=== PATIENT | female | born 1960 | race Caucasian/White ===

== ENCOUNTER 2019-12-10 11:44 | Outpatient (CLI) | payer OTHER, SELFPAY ==
--- NOTE | 2019-12-10 11:49 | USCV_ITS ---
Lilo Chong Age: 59 Gender: F : 1960 Exam Date: 12/10/2019 12:09 Ordering Phys: Art Roman DO Technologist: Brittnee Cristina Exam Location: [facility] [place] Indication: HEART MURMUR, DM BP: 110 / 70 HR: 64 Rhythm: Sinus Technical Quality: Adequate MEASUREMENTS (Male / Female) Normal Values 2D ECHO LV Diastolic Diameter PLAX 4.4 cm 4.2 - 5.9 / 3.9 - 5.3 cm LV Systolic Diameter PLAX 2.6 cm LV Chamber Size 3.7 cm IVS Diastolic Thickness 0.9 cm 0.6 - 1.0 / 0.6 - 0.9 cm IVS Systolic Thickness 1.8 cm LVPW Diastolic Thickness 1.2 cm 0.6 - 1.0 / 0.6 - 0.9 cm LVPW Systolic Thickness 1.6 cm RV Chamber Size 2.7 cm LVOT Diameter 2.0 cm LV Ejection Fraction 2D Teich 72.6 % LV Ejection Fraction MOD 2C 48.2 % LV Ejection Fraction 2C AL 46.8 % LA Diameter 3.9 cm LA Width 2.1 cm LA Height 4.0 cm RA Width 2.2 cm RA Height 3.7 cm Aorta at Sinotubular Diameter 2.8 cm M-MODE LV Diastolic Diameter MM 3.8 cm 4.2 - 5.9 / 3.9 - 5.3 cm LV Systolic Diameter MM 2.9 cm LV Ejection Fraction MM Teich 48.9 % IVS Diastolic Thickness MM 1.0 cm 0.6 - 1.0 / 0.6 - 0.9 cm IVS Systolic Thickness MM 1.4 cm LVPW Diastolic Thickness MM 1.3 cm 0.6 - 1.0 / 0.6 - 0.9 cm LVPW Systolic Thickness MM 1.6 cm RV Diastolic Diameter MM 1.6 cm Aortic Annulus Diameter 3.1 cm LA Ao Ratio MM 1.3 MV E Point Septal Separation 0.2 cm DOPPLER AV Peak Velocity 137.0 cm/s LVOT Peak Velocity 100.0 cm/s AV Area Cont Eq vti 2.3 cm squared AV Area Cont Eq pk 2.3 cm squared MV Area PHT 4.1 cm squared Mitral E to A Ratio 1.1 MV E' Velocity 9.0 cm/s Mitral E to MV E' Ratio 12.2 Mitral E to LV E' Lateral Ratio 12.7 Mitral E to LV E' Septal Ratio 11.9 TR Peak Velocity 274.6 cm/s TR Peak Gradient 30.2 mmHg TR Mean Velocity 210.0 cm/s TR Mean Gradient 20.1 mmHg TR Velocity Time Integral 91.9 cm TV Peak E Velocity 67.0 cm/s Right Atrial Pressure 3.0 mmHg Pulmonary Artery Systolic Pressu 33.2 mmHg PV Peak Velocity 69.0 cm/s FINDINGS Left Ventricle Normal left ventricular cavity size. Normal left ventricular systolic function. No regional wall motion abnormalities. Left ventricular ejection fraction is estimated at 55 %. Grade I/IV diastolic dysfunction (abnormal relaxation filling pattern), normal to mildly elevated filling pressures. Right Ventricle The right ventricle is normal in size and function. Right Atrium The right atrium is normal in size. Left Atrium The left atrium is normal in size. Mitral Valve Moderately thickened mitral valve. No mitral valve stenosis. Mild mitral valve regurgitation. Aortic Valve Moderate aortic valve calcification. No aortic valve stenosis. Mild aortic valve regurgitation. Tricuspid Valve Structurally normal tricuspid valve without significant stenosis or regurgitation. Pulmonary artery systolic pressure is normal. Pulmonic Valve Structurally normal pulmonic valve without significant stenosis. There is no pulmonic regurgitation. Pericardium Normal pericardium without effusion. Aorta Normal ascending aorta dimension. CONCLUSIONS 1-Normal left ventricular cavity size. Normal left ventricular systolic function. No regional wall motion abnormalities. Left ventricular ejection fraction is estimated at 55 %. Grade I/IV diastolic dysfunction (abnormal relaxation filling pattern), normal to mildly elevated filling pressures. 2-Moderately thickened mitral valve. No mitral valve stenosis. Mild mitral valve regurgitation. 3-Moderate aortic valve calcification. No aortic valve stenosis. Mild aortic valve regurgitation. 4-There is no pericardial effusion. 4-Pulmonary artery systolic pressure is within normal limits. 5-Right atrial pressure is around 5 mm of mercury. 6-No significant change since the prior echocardiogram study of 04/09/2017. . Shree Kingston MD (Electronically Signed) Final Date: 10 Dec 2019 18:13 S
== END 2019-12-10 11:45 | disposition home or self-care (01) ==
LOC: RAD 11:48
PROVIDERS: PCP Electrodiagnostic Medicine; Visit Provider Electrodiagnostic Medicine
DX: R01.1 Cardiac murmur, unspecified (principal); E03.9 Hypothyroidism, unspecified; E11.9 Type 2 diabetes mellitus without complications; I08.0 Rheumatic disorders of both mitral and aortic valves
CPT/HCPCS: 93306

== ENCOUNTER 2020-01-15 07:30 | Outpatient (CLI) | payer OTHER, SELFPAY ==
--- NOTE | 2020-01-15 07:39 | MM_ITS ---
WS: [id number] BILATERAL DIGITAL SCREENING MAMMOGRAPHY WITH CAD CLINICAL INFORMATION: SCREENING HISTORY: Screening mammogram. No current complaints. COMPARISON: TECHNIQUE: Bilateral CC and MLO views. FINDINGS: The breasts are composed of heterogeneous fibroglandular density tissue, which can limit the detectio n of small underlying mass lesions. No suspicious mass, asymmetry, calcifications, or architectural d istortion. No evidence of malignancy. A few stable punctate calcifications. Stable lymph node left ax illary tail. MM/[id number] IMPRESSION: BI-RADS: 2-Benign FOLLOW UP: 1 Year Follow-up Recommend return to annual screening mammography.
== END 2020-01-15 07:31 | disposition home or self-care (01) ==
LOC: RADSHAW 07:35
PROVIDERS: PCP Electrodiagnostic Medicine; Visit Provider Electrodiagnostic Medicine
DX: Z12.31 Encounter for screening mammogram for malignant neoplasm of breast (principal)
CPT/HCPCS: 77067

== ENCOUNTER 2020-04-01 18:54 | Emergency (ER) | payer OTHER, SELFPAY ==
[2020-04-01 19:04] VITALS: BP 163/84; PULSE 73; RESP 17; TEMP 36.6; O2SAT 97; BMI 31.8
--- NOTE | 2020-04-01 19:23 | ED_ITS ---
HPI - Overdose General: Chief Complaint: Overdose Stated Complaint: POSSIBLE OVER DOSE/INSULIN Time Seen by Provider: 04/01/20 19:14 Source: patient Mode of arrival: ambulatory Limitations: no limitations History of Present Illness: HPI Narrative: Lilo presents here after accidentally taking 60 units of Humalog 30 minutes ago. She states she meant to take 15 but took 60. Patient's blood sugar at home was 217. She is concerned that it may drop in 1 to be monitored. She has no symptoms currently. Review of Systems Const: Denies: fever(s), chills, body aches or change in appetite Eyes: Denies: blurry vision or eye discomfort ENMT: Denies: throat pain or dental pain Card: Denies: chest pain Resp: Denies: dyspnea GI: Denies: abdominal pain, nausea, vomiting or diarrhea : Denies: dysuria Musc: Denies: neck pain or back pain Skin/Breast: Denies: rash Neuro: Denies: headache(s) Psych: Denies: depression Jordan/Lymph: Denies: easy bruising All/Imm: Denies: urticaria Physical Exam Const: COMMON NORMALS: no acute distress, patient oriented x3 and healthy appearing HENMT: COMMON NORMALS: normocephalic and atraumatic HEAD & SCALP: normocephalic and atraumatic Eye: COMMON NORMALS: Equal, round and reactive pupils present and EOMs intact bilaterally PUPIL: Yes Equal, round and reactive pupils present Neck/C-Spine: COMMON NORMALS: full ROM and supple Chest: COMMONS NORMALS: normal inspection of the chest and normal palpation of entire chest wall Resp: COMMON NORMALS: normal respiratory effort, No retractions, No use of accessory muscles and clear to auscultation bilaterally AUSCULTATION: clear to auscultation bilaterally Cardio: COMMON NORMALS: regular rate, regular rhythm and No murmurs present (Cardio) RATE: regular rate RHYTHM: regular rhythm GI: COMMON NORMALS: Normal to inspection, nondistended, normoactive bowel sounds present, Soft to palpation, non-tender and no masses PALPATION: Yes Soft to palpation Extremity: COMMON NORMALS: normal to inspection and full ROM Neuro: COMMON NORMALS: patient oriented x3, moves all extremities and no focal motor deficits Psych: COMMON NORMALS: mental status grossly normal, Normal thought process present and cooperative THOUGHT PROCESS: Normal thought process present Skin: COMMON NORMALS: no rashes or lesions noted and no wounds GENERAL SKIN EXAM: no rashes or lesions noted Course Vital Signs: Vital signs: Vital Signs Temperature 97.8 F 04/01/20 19:04 Pulse Rate 73 04/01/20 19:04 Respiratory Rate 16 04/01/20 23:17 Blood Pressure 119/66 04/01/20 23:17 Pulse Oximetry 97 04/01/20 23:17 MDM - Overdose MDM Narrative: Medical decision making narrative: Lilo presents here with accidental overdose on her insulin. She took the longest on accident. Patient's blood sugar here is stabilized. She is well-appearing here and is stable for discharge. She is to follow-up with PCP in 3 to 5 days return if worsening. Lab Data: Labs: Lab Results 04/01/20 04/01/20 04/01/20 Range/Units 19:12 19:20 19:20 WBC 9.0 (4.0-10.0) 10^3/ uL RBC 4.77 (4.1-5.3) 10^6/u L Hgb 12.8 (11.5-15.3) g/dL Hct 40.0 (37.0-47.0) % MCV 83.9 (81-99) fL MCH 26.8 L (28.0-34.0) pg MCHC 32.0 (30.0-36.0) g/dL RDW 13.0 (12.1-15.1) % Plt Count 327 (130-400) 10^3/c mm MPV 10.0 (7.4-10.4) fL Neut % (Auto) 53.6 % Lymph % (Auto) 34.9 % [place] % (Auto) 5.1 % Eos % (Auto) 5.8 % Baso % (Auto) 0.3 % Neut # (Auto) 4.81 (1.8-7.7) 10^3/u L Lymph # (Auto) 3.1 (0.8-4.8) 10^3/u L [place] # (Auto) 0.5 (0.2-0.9) 10^3/u L Eos # (Auto) 0.5 (0.0-0.8) 10^3/u L Baso # (Auto) 0.0 (0.0-0.1) 10^3/u L Nucleated RBC % (a uto) 0 % Nucleated RBCs # 0.0 /100WBC Sodium 139 (136-145) mmol/L Potassium 3.6 (3.5-5.1) mmol/L Chloride 101 (98-107) mmol/L Carbon Dioxide 28 (22-29) mmol/L Anion Gap 13.6 (5-19) BUN 14 (6-20) mg/dL Creatinine 0.8 (0.5-0.9) mg/dL GFR Calculation 73.4 L (90-130) mL/min Glucose 92 (65-115) mg/dL POC Glucose 166 (70-110) mg/dL Calculated Osmolal ity 284 L (285-295) mOsm/k g Calcium 9.1 (8.5-10.5) mg/dL Total Bilirubin 0.3 (0.15-1.2) mg/dL AST 20 (0-32) U/L ALT 17 (0-33) U/L Alkaline Phosphata se 120 H (35-105) IU/L Total Protein 7.7 (6.6-8.7) g/dL Albumin 4.5 (3.5-5.2) g/dL Globulin 3.2 (1.3-4.6) g/dL Salicylates 1.1 L (3-10) mg/dL Urine Opiates Scre en (Negative) ng/mL Acetaminophen < 5.0 L (10-30) ug/mL Ur Barbiturates Sc reen (Negative) ng/mL Ur Phencyclidine S crn (Negative) ng/mL Ur Amphetamines Sc reen (Negative) ng/mL U Benzodiazepines Scrn (Negative) ng/mL Urine Cocaine Scre en (Negative) ng/mL U Marijuana (THC) Screen (Negative) ng/mL Ethyl Alcohol < 10 (0-10) mg/dL 04/01/20 04/01/20 04/01/20 Range/Units 19:38 19:39 20:04 WBC (4.0-10.0) 10^3/ uL RBC (4.1-5.3) 10^6/u L Hgb (11.5-15.3) g/dL Hct (37.0-47.0) % MCV (81-99) fL MCH (28.0-34.0) pg MCHC (30.0-36.0) g/dL RDW (12.1-15.1) % Plt Count (130-400) 10^3/c mm MPV (7.4-10.4) fL Neut % (Auto) % Lymph % (Auto) % [place] % (Auto) % Eos % (Auto) % Baso % (Auto) % Neut # (Auto) (1.8-7.7) 10^3/u L Lymph # (Auto) (0.8-4.8) 10^3/u L [place] # (Auto) (0.2-0.9) 10^3/u L Eos # (Auto) (0.0-0.8) 10^3/u L Baso # (Auto) (0.0-0.1) 10^3/u L Nucleated RBC % (a uto) % Nucleated RBCs # /100WBC Sodium (136-145) mmol/L Potassium (3.5-5.1) mmol/L Chloride (98-107) mmol/L Carbon Dioxide (22-29) mmol/L Anion Gap (5-19) BUN (6-20) mg/dL Creatinine (0.5-0.9) mg/dL GFR Calculation (90-130) mL/min Glucose (65-115) mg/dL POC Glucose 100 161 (70-110) mg/dL Calculated Osmolal ity (285-295) mOsm/k g Calcium (8.5-10.5) mg/dL Total Bilirubin (0.15-1.2) mg/dL AST (0-32) U/L ALT (0-33) U/L Alkaline Phosphata se (35-105) IU/L Total Protein (6.6-8.7) g/dL Albumin (3.5-5.2) g/dL Globulin (1.3-4.6) g/dL Salicylates (3-10) mg/dL Urine Opiates Scre en Negative (Negative) ng/mL Acetaminophen (10-30) ug/mL Ur Barbiturates Sc reen Negative (Negative) ng/mL Ur Phencyclidine S crn Negative (Negative) ng/mL Ur Amphetamines Sc reen Negative (Negative) ng/mL U Benzodiazepines Scrn Negative (Negative) ng/mL Urine Cocaine Scre en Negative (Negative) ng/mL U Marijuana (THC) Screen Negative (Negative) ng/mL Ethyl Alcohol (0-10) mg/dL 04/01/20 04/01/20 04/01/20 Range/Units 20:23 21:10 22:01 WBC (4.0-10.0) 10^3/ uL RBC (4.1-5.3) 10^6/u L Hgb (11.5-15.3) g/dL Hct (37.0-47.0) % MCV (81-99) fL MCH (28.0-34.0) pg MCHC (30.0-36.0) g/dL RDW (12.1-15.1) % Plt Count (130-400) 10^3/c mm MPV (7.4-10.4) fL Neut % (Auto) % Lymph % (Auto) % [place] % (Auto) % Eos % (Auto) % Baso % (Auto) % Neut # (Auto) (1.8-7.7) 10^3/u L Lymph # (Auto) (0.8-4.8) 10^3/u L [place] # (Auto) (0.2-0.9) 10^3/u L Eos # (Auto) (0.0-0.8) 10^3/u L Baso # (Auto) (0.0-0.1) 10^3/u L Nucleated RBC % (a uto) % Nucleated RBCs # /100WBC Sodium (136-145) mmol/L Potassium (3.5-5.1) mmol/L Chloride (98-107) mmol/L Carbon Dioxide (22-29) mmol/L Anion Gap (5-19) BUN (6-20) mg/dL Creatinine (0.5-0.9) mg/dL GFR Calculation (90-130) mL/min Glucose (65-115) mg/dL POC Glucose 92 149 48 (70-110) mg/dL Calculated Osmolal ity (285-295) mOsm/k g Calcium (8.5-10.5) mg/dL Total Bilirubin (0.15-1.2) mg/dL AST (0-32) U/L ALT (0-33) U/L Alkaline Phosphata se (35-105) IU/L Total Protein (6.6-8.7) g/dL Albumin (3.5-5.2) g/dL Globulin (1.3-4.6) g/dL Salicylates (3-10) mg/dL Urine Opiates Scre en (Negative) ng/mL Acetaminophen (10-30) ug/mL Ur Barbiturates Sc reen (Negative) ng/mL Ur Phencyclidine S crn (Negative) ng/mL Ur Amphetamines Sc reen (Negative) ng/mL U Benzodiazepines Scrn (Negative) ng/mL Urine Cocaine Scre en (Negative) ng/mL U Marijuana (THC) Screen (Negative) ng/mL Ethyl Alcohol (0-10) mg/dL 04/01/20 04/01/20 04/01/20 Range/Units 22:33 23:14 23:52 WBC (4.0-10.0) 10^3/ uL RBC (4.1-5.3) 10^6/u L Hgb (11.5-15.3) g/dL Hct (37.0-47.0) % MCV (81-99) fL MCH (28.0-34.0) pg MCHC (30.0-36.0) g/dL RDW (12.1-15.1) % Plt Count (130-400) 10^3/c mm MPV (7.4-10.4) fL Neut % (Auto) % Lymph % (Auto) % [place] % (Auto) % Eos % (Auto) % Baso % (Auto) % Neut # (Auto) (1.8-7.7) 10^3/u L Lymph # (Auto) (0.8-4.8) 10^3/u L [place] # (Auto) (0.2-0.9) 10^3/u L Eos # (Auto) (0.0-0.8) 10^3/u L Baso # (Auto) (0.0-0.1) 10^3/u L Nucleated RBC % (a uto) % Nucleated RBCs # /100WBC Sodium (136-145) mmol/L Potassium (3.5-5.1) mmol/L Chloride (98-107) mmol/L Carbon Dioxide (22-29) mmol/L Anion Gap (5-19) BUN (6-20) mg/dL Creatinine (0.5-0.9) mg/dL GFR Calculation (90-130) mL/min Glucose (65-115) mg/dL POC Glucose 229 106 73 (70-110) mg/dL Calculated Osmolal ity (285-295) mOsm/k g Calcium (8.5-10.5) mg/dL Total Bilirubin (0.15-1.2) mg/dL AST (0-32) U/L ALT (0-33) U/L Alkaline Phosphata se (35-105) IU/L Total Protein (6.6-8.7) g/dL Albumin (3.5-5.2) g/dL Globulin (1.3-4.6) g/dL Salicylates (3-10) mg/dL Urine Opiates Scre en (Negative) ng/mL Acetaminophen (10-30) ug/mL Ur Barbiturates Sc reen (Negative) ng/mL Ur Phencyclidine S crn (Negative) ng/mL Ur Amphetamines Sc reen (Negative) ng/mL U Benzodiazepines Scrn (Negative) ng/mL Urine Cocaine Scre en (Negative) ng/mL U Marijuana (THC) Screen (Negative) ng/mL Ethyl Alcohol (0-10) mg/dL 04/02/20 04/02/20 Range/Units 00:30 01:34 WBC (4.0-10.0) 10^3/ uL RBC (4.1-5.3) 10^6/u L Hgb (11.5-15.3) g/dL Hct (37.0-47.0) % MCV (81-99) fL MCH (28.0-34.0) pg MCHC (30.0-36.0) g/dL RDW (12.1-15.1) % Plt Count (130-400) 10^3/c mm MPV (7.4-10.4) fL Neut % (Auto) % Lymph % (Auto) % [place] % (Auto) % Eos % (Auto) % Baso % (Auto) % Neut # (Auto) (1.8-7.7) 10^3/u L Lymph # (Auto) (0.8-4.8) 10^3/u L [place] # (Auto) (0.2-0.9) 10^3/u L Eos # (Auto) (0.0-0.8) 10^3/u L Baso # (Auto) (0.0-0.1) 10^3/u L Nucleated RBC % (a uto) % Nucleated RBCs # /100WBC Sodium (136-145) mmol/L Potassium (3.5-5.1) mmol/L Chloride (98-107) mmol/L Carbon Dioxide (22-29) mmol/L Anion Gap (5-19) BUN (6-20) mg/dL Creatinine (0.5-0.9) mg/dL GFR Calculation (90-130) mL/min Glucose (65-115) mg/dL POC Glucose 69 174 (70-110) mg/dL Calculated Osmolal ity (285-295) mOsm/k g Calcium (8.5-10.5) mg/dL Total Bilirubin (0.15-1.2) mg/dL AST (0-32) U/L ALT (0-33) U/L Alkaline Phosphata se (35-105) IU/L Total Protein (6.6-8.7) g/dL Albumin (3.5-5.2) g/dL Globulin (1.3-4.6) g/dL Salicylates (3-10) mg/dL Urine Opiates Scre en (Negative) ng/mL Acetaminophen (10-30) ug/mL Ur Barbiturates Sc reen (Negative) ng/mL Ur Phencyclidine S crn (Negative) ng/mL Ur Amphetamines Sc reen (Negative) ng/mL U Benzodiazepines Scrn (Negative) ng/mL Urine Cocaine Scre en (Negative) ng/mL U Marijuana (THC) Screen (Negative) ng/mL Ethyl Alcohol (0-10) mg/dL Discharge Plan Discharge Patient Disposition: Home Clinical Impression: Accidental overdose Qualifiers: Encounter type: initial encounter Qualified Code(s): T50.901A - Poisoning by unspecified drugs, medicaments and biological substances, accidental (unintentional), initial encounter Condition: Stable Prescriptions: No Action atorvastatin 40 mg tablet 40 mg PO DAILY RF: 0 Euthyrox 125 mcg tablet 125 mcg PO DAILY RF: 0 estradiol 0.5 mg tablet 0.5 mg PO DAILY RF: 0 dicyclomine 10 mg capsule See Rx Instructions .ROUTE .COMPLEX RF: 0 Humalog KwikPen Insulin 100 unit/mL insulin pen 10 unit SUBCUT TID RF: 0 escitalopram oxalate 10 mg tablet 10 mg PO DAILY RF: 0 duloxetine 30 mg capsule,delayed release(DR/EC) 30 mg PO DAILY RF: 0 Basaglar KwikPen U-100 Insulin 100 unit/mL (3 mL) insulin pen 60 unit SUBCUT QAM RF: 0 Tradjenta 5 mg tablet 5 mg PO DAILY RF: 0 Aspirin Low Dose 81 mg Tablet,Delayed Release (Dr/Ec) 81 mg PO DAILY RF: 0 Discharge Orders: Discharge Order (Routine); Ordered 04/02/20 Ordered By: Rema Bennett Referrals: Art Roman DO [Primary Care Provider] - 1-3 days Discharge Diet: Advance as tolerated Discharge Activity: Resume usual activity Patient Instructions: Diabetic Hypoglycemia (ED) Coding Level of Care Code ED Business Insight And Analytics Manager for Chg Fwd Exam Comprehensive
[2020-04-01 19:29] LABS: Basophils % 0.3 %; Eosinophils # 0.5 10^3/uL (0.0-0.8); Eosinophils % 5.8 %; Hemoglobin 12.8 g/dL (11.5-15.3); Lymphocytes # 3.1 10^3/uL (0.8-4.8); Lymphocytes % 34.9 %; Mean Corpuscular Hemoglobin 26.8 pg (28.0-34.0); Mean Corpuscular Volume 83.9 fL (81-99); Monocytes # 0.5 10^3/uL (0.2-0.9); Monocytes % 5.1 %; Neutrophils # 4.81 10^3/uL (1.8-7.7); Neutrophils % 53.6 %; Nucleated Red Blood Cells % 0 %; Platelet Count 327 10^3/cmm (130-400); Red Blood Count 4.77 10^6/uL (4.1-5.3)
[2020-04-01] MEDS: dextrose 50% syringe 50 mL IVP ×3 (19:46→22:20)
[2020-04-01 19:48] LABS: Alanine Aminotransferase 17 U/L (0-33); Albumin Level 4.5 g/dL (3.5-5.2); Alkaline Phosphatase 120 IU/L (35-105); Anion Gap 13.6 (5-19); Aspartate Amino Transferase 20 U/L (0-32); Blood Urea Nitrogen 14 mg/dL (6-20); Calcium 9.1 mg/dL (8.5-10.5); Carbon Dioxide 28 mmol/L (22-29); Chloride 101 mmol/L (98-107); Globulin 3.2 g/dL (1.3-4.6); Glomerular Filtration Rate 73.4 mL/min (90-130); Glucose 92 mg/dL (65-115); Osmolality Calculated 284 mOsm/kg (285-295); Potassium 3.6 mmol/L (3.5-5.1); Salicylate 1.1 mg/dL (3-10); Sodium 139 mmol/L (136-145); Total Bilirubin 0.3 mg/dL (0.15-1.2); Total Protein 7.7 g/dL (6.6-8.7)
[2020-04-01 19:49] LABS: Acetaminophen < 5.0 ug/mL (10-30); Alcohol Level < 10 mg/dL (0-10)
[2020-04-01 20:26] LABS: Amphetamines Screen Urine Negative (Negative); Barbiturates Screen Urine Negative (Negative); Benzodiazepines Screen Urine Negative (Negative); Cocaine Screen Urine Negative (Negative); Opiate Screen Urine Negative (Negative); PCP Screen Urine Negative (Negative); THC Screen Urine Negative (Negative)
[2020-04-01 20:26] LABS: Glucose Point of Care 166 mg/dL (70-110)
[2020-04-01 20:26] LABS: Glucose Point of Care 92 mg/dL (70-110)
[2020-04-01 20:26] LABS: Glucose Point of Care 100 mg/dL (70-110)
[2020-04-01 20:26] LABS: Glucose Point of Care 161 mg/dL (70-110)
--- NOTE | 2020-04-01 21:12 | PC.NURSE ---
blood glucose is 149, nurse and doctor have been notified.
[2020-04-01 21:14] LABS: Glucose Point of Care 149 mg/dL (70-110)
[2020-04-01 22:03] LABS: Glucose Point of Care 48 mg/dL (70-110)
[2020-04-01 22:33] VITALS: BP 131/87; RESP 16
--- NOTE | 2020-04-01 22:35 | PC.NURSE ---
blood glucose is 229, nurse and doctor are aware
[2020-04-01 22:37] LABS: Glucose Point of Care 229 mg/dL (70-110)
--- NOTE | 2020-04-01 23:16 | PC.NURSE ---
Blood glucose is 106, nurse and doctor are aware
[2020-04-01 23:17] VITALS: BP 119/66; RESP 16; O2SAT 97
[2020-04-01 23:17] LABS: Glucose Point of Care 106 mg/dL (70-110)
--- NOTE | 2020-04-01 23:54 | PC.NURSE ---
Blood glucose is 73, nurse and doctor are notified.
[2020-04-01 23:56] LABS: Glucose Point of Care 73 mg/dL (70-110)
--- NOTE | 2020-04-02 00:32 | PC.NURSE ---
Blood glucose is 69, nurse and doctor are aware
[2020-04-02 00:34] LABS: Glucose Point of Care 69 mg/dL (70-110)
[2020-04-02] MEDS: dextrose 50% syringe 50 mL IVP (00:47)
--- NOTE | 2020-04-02 01:36 | PC.NURSE ---
Blood glucose is 174, doctor was notified
[2020-04-02 01:37] LABS: Glucose Point of Care 174 mg/dL (70-110)
[2020-04-02 02:39] LABS: Glucose Point of Care 184 mg/dL (70-110)
[2020-04-02 05:45] VITALS: BP 133/71; RESP 16; O2SAT 97
[2020-04-02 05:58] VITALS: BP 133/71
== END 2020-04-02 06:00 | disposition home or self-care (01) ==
PROVIDERS: Emergency Provider Emergency Medicine; PCP Electrodiagnostic Medicine
DX: T38.3X1A Poisoning by insulin and oral hypoglycemic [antidiabetic] drugs, accidental (unintentional), initial encounter (principal); Z79.82 Long term (current) use of aspirin; Z79.4 Long term (current) use of insulin
CPT/HCPCS: 12345; 36415; 36416; 80053; 80306; 80307; 82962; 85025; 96374; 96375; 96376; 99283

== ENCOUNTER → 2020-04-19 11:41 | Outpatient (BNVA) | payer OTHER, SELFPAY | PROVIDERS: PCP Electrodiagnostic Medicine; Visit Provider Nurse Practitioner Family | DX: Z20.828 Contact with and (suspected) exposure to other viral communicable diseases (principal) | CPT/HCPCS: 87635 ==

== ENCOUNTER → 2020-10-11 08:20 | Outpatient (BNVA) | payer OTHER, SELFPAY | PROVIDERS: PCP Electrodiagnostic Medicine; Visit Provider Internal Medicine | DX: E03.9 Hypothyroidism, unspecified (principal); E11.65 Type 2 diabetes mellitus with hyperglycemia; E16.2 Hypoglycemia, unspecified | CPT/HCPCS: 99204 ==

== ENCOUNTER 2020-12-04 18:16 | Emergency (ER) | payer OTHER, SELFPAY ==
[2020-12-04 18:21] VITALS: BP 140/77; PULSE 61; RESP 18; TEMP 36.4; O2SAT 98; BMI 30.9
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
[2020-12-04] MEDS: cyclobenzaprine 10 mg Tablet PO (19:48)
[2020-12-04] MEDS: CELEcoxib 200 mg Capsule 400 MG PO (19:48)
[2020-12-04 19:51] VITALS: BP 132/75; PULSE 85; RESP 16; O2SAT 97
== END 2020-12-04 19:54 | disposition home or self-care (01) ==
PROVIDERS: Emergency Provider Nurse Practitioner Family; PCP Electrodiagnostic Medicine
DX: S13.4XXA Sprain of ligaments of cervical spine, initial encounter (principal); M54.5 Low back pain; Z79.82 Long term (current) use of aspirin; Z79.4 Long term (current) use of insulin; E11.9 Type 2 diabetes mellitus without complications; V40.6XXA Car passenger injured in collision with pedestrian or animal in traffic accident, initial encounter
CPT/HCPCS: 99283

== ENCOUNTER 2021-04-28 10:47 | Emergency (ER) | payer OTHER, SELFPAY ==
[2021-04-28 11:02] VITALS: BP 141/75; PULSE 63; RESP 16; TEMP 36.6; O2SAT 100; BMI 30.5
--- NOTE | 2021-04-28 11:15 | ECG_ITS ---
[facility] Test Date: 2021-04-28 Pat Name: Lilo Chong Department: Room: Gender: Female Sole Filler: : 1960 Requested By: Esteban Gonzalez Order Number: [id number] Rich MD: Celeste Hughes M.D. Measurements Intervals [place] Rate: 65 P: 62 LA: 141 QRS: -10 QRSD: 94 T: 45 QT: 408 QTc: 427 Interpretive Statements SINUS RHYTHM WITH FREQUENT SUPRAVENTRICULAR PREMATURE COMPLEXES POSSIBLE LEFT ATRIAL ENLARGEMENT [-0.1mV P-WAVE IN V1/V2] Compared to ECG 05/28/2017 11:00:13 Sinus bradycardia no longer present Electronically Signed On 04-29-2021 9:38:07 CDT by Celeste Hughes M.D. [id number]
--- NOTE | 2021-04-28 11:31 | ED_ITS ---
HPI - Abdominal Pain General: Chief Complaint: Abdominal Pain Stated Complaint: FEELS A BUBBLE IN CHEST Time Seen by Provider: 04/28/21 11:15 History of Present Illness: HPI narrative: 6-year-old female presents emergency room with complaints of what she describes as a bubble in her stomach for the last 3 days. She has a history of hiatal hernia and reflux. In addition she is diabetic with a history of hypertension there is no known heart disease. She has not noticed anything that exacerbates or relieves. She describes it as feeling like there is a bubble in her stomach that is turning it seemed to be doing it more often this morning to the point where she decided to come in and be seen. She denies any medic easy melena hematemesis coffee-ground emesis no vomiting or diarrhea. She not really taken anything for it at this point. She does have a history of ulcerative colitis as well she is on dicyclomine MD elicited complaint: abdominal pain Onset (ago): day(s) (3) Pain Consistency: intermittent Location: Epigastric Severity: mild Quality: cramping Radiation: none Migration to: no migration Exacerbating factors: nothing Relieving factors: nothing Associated Symptoms: Reports belching, bloating, GI cramping, nausea and poor appetite; Denies anorexia, change in bowel habits, change in stool character, chills, coffee ground emesis, constipation, diarrhea, dyspepsia, dysuria, excessive flatus, fever(s), heartburn, hematochezia, hematuria, hematemesis, fecal incontinence, loose stools, melena, syncope and vomiting Review of Systems Const: Denies: fever(s) or chills ENMT: Denies: throat pain, ear or mastoid pain, nasal discharge or nasal congestion Card: Denies: syncope Resp: Denies: dyspnea, productive cough or non-productive cough GI: Reports: nausea, bloating, GI cramping and belching; Denies: vomiting, hematemesis, coffee ground emesis, heartburn, diarrhea, constipation, excessive flatus, fecal incontinence, change in bowel habits, change in stool character, hematochezia or melena : Denies: dysuria or hematuria Skin/Breast: Denies: rash or pruritus PFSH ED PFSH: Medical History Diabetes type 2, uncontrolled Graves disease Ulcerative colitis Surgical History History of partial hysterectomy History of tubal ligation Family History Other Cancer Diabetes Social History Smoking and tobacco status: never smoked Second hand smoke exposure: No Physical Exam Const: COMMON NORMALS: no acute distress GENERAL APPEARANCE: cooperative and comfortable ORIENTATION/CONSCIOUSNESS: Yes awake, Yes oriented to person, Yes oriented to place and Yes oriented to time HENMT: COMMON NORMALS: normocephalic, atraumatic and hearing grossly normal bilaterally HEAD & SCALP: normocephalic and atraumatic Neck/C-Spine: COMMON NORMALS: no JVD Resp: COMMON NORMALS: normal respiratory effort, No retractions, No use of accessory muscles and clear to auscultation bilaterally AUSCULTATION: clear to auscultation bilaterally Cardio: COMMON NORMALS: no JVD, regular rate, regular rhythm and No murmurs present (Cardio) RATE: regular rate RHYTHM: regular rhythm GI: COMMON NORMALS: Soft to palpation and No hepatosplenomegaly present AUSCULTATION: Yes normoactive bowel sounds PALPATION: Yes Soft to palpation, No Tenderness to palpation present (GI), No Guarding due to palpation present (GI) and Yes No hepatosplenomegaly present Extremity: COMMON NORMALS: normal to inspection, capillary refill normal, no clubbing, cyanosis or edema, no calf tenderness and no pedal edema Neuro: SENSORIUM/ORIENTATION: Yes oriented to person, Yes oriented to place and Yes oriented to time Skin: COMMON NORMALS: no rashes or lesions noted GENERAL SKIN EXAM: no rashes or lesions noted Course Vital Signs: Vital signs: Vital Signs Temperature 97.8 F 04/28/21 11:02 Pulse Rate 63 04/28/21 13:28 Respiratory Rate 13 04/28/21 13:28 Blood Pressure 132/73 04/28/21 13:28 Pulse Oximetry 99 04/28/21 13:28 MDM - Abdominal Pain MDM Narrative: Medical decision making narrative: Reviewed labs and EKG. Exam abdominal exam is benign improvement with a GI cocktail. We will go ahead and discharge her home increase her pantoprazole to twice daily Carafate to use as needed follow-up with her primary care if she does not begin to improve she will likely need an EGD return if has further problems. Lab Data: Labs: Lab Results 04/28/21 04/28/21 04/28/21 11:45 11:45 11:45 WBC 7.6 10^3/uL 10^3/ uL (4.0-10.0) RBC 5.06 10^6/uL 10^6 /uL (4.1-5.3) Hgb 14.1 g/dL g/dL (11.5-15.3) Hct 43.2 % % (37.0-47.0) MCV 85.4 fl fl (81-99) MCH 27.9 pg L pg (28.0-34.0) MCHC 32.6 g/dL g/dL (30.0-36.0) RDW 12.5 % % (12.1-15.1) Plt Count 317 10^3/cmm 10^3 /cmm (130-400) MPV 10.1 fL fL (7.4-10.4) Neut % (Auto) 52.0 % % Lymph % (Auto) 30.1 % % [place] % (Auto) 9.7 % % Eos % (Auto) 7.3 % % Baso % (Auto) 0.5 % % Neut # (Auto) 3.96 10^3/uL 10^3 /uL (1.8-7.7) Lymph # (Auto) 2.3 10^3/uL 10^3/ uL (0.8-4.8) [place] # (Auto) 0.7 10^3/uL 10^3/ uL (0.2-0.9) Eos # (Auto) 0.6 10^3/uL 10^3/ uL (0.0-0.8) Baso # (Auto) 0.0 10^3/uL 10^3/ uL (0.0-0.1) Nucleated RBC % (a uto) 0 % % Nucleated RBCs # 0.0 /100WBC /100W BC Sodium 137 mmol/L mmol/L (136-145) Potassium 3.9 mmol/L mmol/L (3.5-5.1) Chloride 99 mmol/L mmol/L (98-107) Carbon Dioxide 28 mmol/L mmol/L (22-29) Anion Gap 13.9 (5-19) BUN 12 mg/dL mg/dL (8-23) Creatinine 0.6 mg/dL mg/dL (0.5-0.9) GFR Calculation 102.0 mL/min mL/m in (90-130) Glucose 193 mg/dL H mg/dL (65-115) Calculated Osmolal ity 289 mOsm/kg mOsm/ kg (285-295) Calcium 9.4 mg/dL mg/dL (8.5-10.5) Total Bilirubin 0.5 mg/dL mg/dL (0.15-1.2) AST 19 U/L U/L (0-32) ALT 18 U/L U/L (0-33) Alkaline Phosphata se 105 IU/L IU/L (35-105) Total Protein 7.3 g/dL g/dL (6.6-8.7) Albumin 4.2 g/dL g/dL (3.5-5.2) Globulin 3.1 g/dL g/dL (1.3-4.6) Urine Color Straw (Yellow) Urine Appearance Clear (CLEAR) Urine pH 7 (5-7) Ur Specific Gravit y 1.005 (1.005-1.030) Urine Protein Neg (Negative) Urine Glucose (UA) Norm (Normal) Urine Ketones Negative (Negative) Urine Blood Neg (Negative) Urine Nitrate Negative (Negative) Urine Bilirubin Neg (Negative) Urine Urobilinogen Norm mg/dL mg/dL (Negative) Ur Leukocyte [place] ase 1+ H (Negative) Urine RBC Not Reportable Urine WBC 5-10 /hpf H /hpf (0-5) Ur Squamous Epith Cells 5-10 /hpf H /hpf (0-5) Ur Transition Epit h Cell 0-4 /hpf /hpf Amorphous Sediment Not Reportable Urine Bacteria Trace /hpf /hpf (NONE) Ur Oval Fat Bodies None /hpf /hpf Discharge Plan Discharge Patient Disposition: Home Clinical Impression: Hiatal hernia with GERD Condition: Stable Prescriptions: New pantoprazole 40 mg tablet,delayed release (DR/EC) 40 mg PO BID 14 Days Qty: 28 RF: 0 Carafate 1 gram tablet 1 g PO Q6H 28 Days Qty: 112 RF: 0 Discontinued pantoprazole 40 mg tablet,delayed release (DR/EC) 40 mg PO DAILY RF: 0 No Action Humalog KwikPen Insulin 100 unit/mL insulin pen 4 unit SUBCUT TID RF: 0 Tradjenta 5 mg tablet 5 mg PO DAILY 90 Days Qty: 90 RF: 3 Lantus Solostar U-100 Insulin 100 unit/mL (3 mL) insulin pen 40 unit SUBCUT DAILY 90 Days Qty: 36 RF: 3 (DME) FreeStyle Adwoa 14 Day Sensor Kit See Rx Instructions .Route Qty: 3 RF: 3 atorvastatin 40 mg tablet 40 mg PO DAILY RF: 0 estradiol 0.5 mg tablet 0.5 mg PO DAILY RF: 0 dicyclomine 10 mg capsule See Rx Instructions .ROUTE .COMPLEX RF: 0 escitalopram oxalate 10 mg tablet 10 mg PO DAILY RF: 0 duloxetine 30 mg capsule,delayed release(DR/EC) 30 mg PO DAILY RF: 0 Aspirin Low Dose 81 mg Tablet,Delayed Release (Dr/Ec) 81 mg PO DAILY RF: 0 Euthyrox 125 mcg tablet 112 mcg PO DAILY RF: 0 Celebrex 100 mg capsule 100 mg PO BID Qty: 20 RF: 0 cyclobenzaprine 5 mg tablet 5 mg PO TID PRN (Reason: muscle spasm) Qty: 10 RF: 0 Discharge Orders: Discharge ED (Routine); Ordered 04/28/21 Ordered By: Esteban Curtis Referrals: Art Roman DO [Primary Care Provider] - Discharge Diet: Usual diet Discharge Activity: Resume usual activity Patient Instructions: Opioid Safety Coding Level of Care Code ED Production Planning Manager for Chg Fwd Exam Comprehensive
[2021-04-28 11:56] LABS: Basophils % 0.5 %; Eosinophils # 0.6 10^3/uL (0.0-0.8); Eosinophils % 7.3 %; Hematocrit 43.2 % (37.0-47.0); Hemoglobin 14.1 g/dL (11.5-15.3); Lymphocytes # 2.3 10^3/uL (0.8-4.8); Lymphocytes % 30.1 %; Mean Corpuscular HGB Conc 32.6 g/dL (30.0-36.0); Mean Corpuscular Hemoglobin 27.9 pg (28.0-34.0); Mean Corpuscular Volume 85.4 fl (81-99); Mean Platelet Volume 10.1 fL (7.4-10.4); Monocytes # 0.7 10^3/uL (0.2-0.9); Monocytes % 9.7 %; Neutrophils # 3.96 10^3/uL (1.8-7.7); Nucleated Red Blood Cells % 0 %; Platelet Count 317 10^3/cmm (130-400); Red Blood Count 5.06 10^6/uL (4.1-5.3); Red Cell Distribution Width 12.5 % (12.1-15.1); White Blood Count 7.6 10^3/uL (4.0-10.0)
[2021-04-28 12:02] VITALS: BP 132/73; PULSE 78; RESP 17; O2SAT 97
[2021-04-28 12:07] VITALS: BP 132/73; PULSE 66; RESP 11; O2SAT 99
[2021-04-28 12:15] LABS: Charge for UA Resulting for Rev
[2021-04-28 12:20] VITALS: PULSE 67
[2021-04-28 12:29] LABS: Alanine Aminotransferase 18 U/L (0-33); Albumin Level 4.2 g/dL (3.5-5.2); Alkaline Phosphatase 105 IU/L (35-105); Anion Gap 13.9 (5-19); Aspartate Amino Transferase 19 U/L (0-32); Blood Urea Nitrogen 12 mg/dL (8-23); Calcium 9.4 mg/dL (8.5-10.5); Carbon Dioxide 28 mmol/L (22-29); Chloride 99 mmol/L (98-107); Globulin 3.1 g/dL (1.3-4.6); Glucose 193 mg/dL (65-115); Osmolality Calculated 289 mOsm/kg (285-295); Potassium 3.9 mmol/L (3.5-5.1); Sodium 137 mmol/L (136-145); Total Bilirubin 0.5 mg/dL (0.15-1.2); Total Protein 7.3 g/dL (6.6-8.7)
[2021-04-28 12:30] VITALS: BP 132/73; PULSE 84; O2SAT 99
[2021-04-28 12:32] LABS: Blood Urine Neg (Negative); Glucose Urine UA Norm (Normal); Ketones Urine Negative (Negative); Protein Urine Neg (Negative); Specific Gravity, Urine 1.005 (1.005-1.030); Urine Appearance Clear (CLEAR); Urine Color Straw (Yellow); pH Urine 7 (5-7)
[2021-04-28 12:33] LABS: Add Urine Microscopic? YES; Bilirubin Urine Neg (Negative); Leukocyte Esterase Urine 1+ (Negative); Nitrate Urine Negative (Negative); Urobilinogen Urine Norm (Negative)
[2021-04-28 12:35] LABS: Add Urine Culture? No; Bacteria Urine TRACE /hpf; Transitional Epi Cells Urine 0-4 /hpf
[2021-04-28] MEDS: lidocaine 2% viscous 15 ML, aluminum-mag hydrox-simethicon 30 ML, sucralfate oral liq 1 GM PO (13:04)
[2021-04-28 13:28] VITALS: BP 132/73; PULSE 63; RESP 13; O2SAT 99
== END 2021-04-28 13:30 | disposition home or self-care (01) ==
PROVIDERS: Emergency Provider Family Medicine; PCP Electrodiagnostic Medicine
DX: K44.9 Diaphragmatic hernia without obstruction or gangrene (principal); K21.9 Gastro-esophageal reflux disease without esophagitis; Z79.82 Long term (current) use of aspirin; Z79.4 Long term (current) use of insulin; E11.9 Type 2 diabetes mellitus without complications
CPT/HCPCS: 80053; 81001; 81003; 85025; 93005; 99284

== ENCOUNTER 2021-05-08 15:47 | Emergency (ER) | payer OTHER, SELFPAY ==
[2021-05-08 16:33] VITALS: BP 134/76; PULSE 71; RESP 18; TEMP 36.6; O2SAT 96
[2021-05-08 16:35] VITALS: BMI 29.2
--- NOTE | 2021-05-08 16:44 | XRR_ITS ---
PROCEDURE INFORMATION: Exam: XR Chest Exam date and time: 05/08/2021 4:44 PM Age: 60 years old Clinical indication: Pain; Chest pressure; Additional info: Chest pain TECHNIQUE: Imaging protocol: XR of the chest. Views: 1 view. Total images: 1 COMPARISON: CR Chest 1 [place] [id number] 05/28/2017 8:51 AM FINDINGS: Lungs: No visible active interstitial or alveolar airspace disease. Pleural spaces: Unremarkable. No pleural effusion. No pneumothorax. Heart/Mediastinum: Cardiac structures and configuration within normal limits. Bones/joints: Unremarkable. XR/XR chest 1V portable [id number] IMPRESSION: Nonacute. Radiation Dose CTDIVOL = (mGy): DLP = (mGy-cm)
--- NOTE | 2021-05-08 16:47 | ECG_ITS ---
[facility] Test Date: 2021-05-08 Pat Name: Lilo Chong Department: Room: Gender: Female Bariatric Nurse: : 1960 Requested By: Darius Toledo Order Number: [id number] Rich MD: Celeste Hughes M.D. Measurements Intervals [place] Rate: 64 P: 55 [place]: 131 QRS: -26 QRSD: 100 T: 45 QT: 399 QTc: 412 Interpretive Statements SINUS RHYTHM WITH OCCASIONAL SUPRAVENTRICULAR PREMATURE COMPLEXES POSSIBLE LEFT ATRIAL ENLARGEMENT [-0.1mV P-WAVE IN V1/V2] BORDERLINE LEFT AXIS DEVIATION [QRS AXIS < -20] Compared to ECG 04/28/2021 11:25:44 No significant changes Electronically Signed On 05-08-2021 21:00:28 CDT by Celeste Hughes M.D. [id number] f
--- NOTE | 2021-05-08 16:51 | ED_ITS ---
HPI - Chest Pain General: Chief Complaint: Chest Pain Stated Complaint: CHEST PAIN/WEAKNESS/N,V Time Seen by Provider: 05/08/21 16:43 History of Present Illness: HPI narrative: 60-year-old female with history of diabetes and Graves' disease presents with diffuse fatigue chest pain and shortness of breath and nonproductive cough for 1 week. Denies fever. Denies vomiting but does report nausea. Denies diarrhea constipation. Denies abdominal pain. States chest pain has been mild constant achy and nonradiating. Denies any exertional pleuritic component. Denies any lower extremity pain or swelling. States he has been compliant with medications otherwise. Review of Systems Narrative: - CONSTITUTIONAL: Denies weight loss, fever and chills. - HEENT: Denies changes in vision and hearing. - RESPIRATORY: As above - CV: As above - GI: As above - : Denies dysuria and urinary frequency. - MSK: Denies myalgia and joint pain. - SKIN: Denies rash and pruritus. - NEUROLOGICAL: Denies headache, weakness, numbness and syncope. - PSYCHIATRIC: Denies suicidal ideation PFSH ED PFSH: Medical History Diabetes type 2, uncontrolled Graves disease Ulcerative colitis Surgical History History of partial hysterectomy History of tubal ligation Family History Other Cancer Diabetes Social History Smoking and tobacco status: never smoked Second hand smoke exposure: No Physical Exam Narrative: EXAM NARRATIVE: - GENERAL: Alert and oriented x 3. No acute distress. Well-nourished. - EYES: EOMI. Anicteric. - HENT: Atraumatic, no C-spine tenderness. Moist mucous membranes. No scleral icterus. No cervical lymphadenopathy. - LUNGS: Clear to auscultation bilaterally. No accessory muscle use. Equal lung sounds bilaterally. No respiratory distress. - CARDIOVASCULAR: Regular rate and rhythm. No murmur. No JVD. - ABDOMEN: Soft, non-tender and non-distended. Negative CVA tenderness bilaterally, no rebound or guarding, negative Wood sign. No palpable masses. - EXTREMITIES: No edema. Non-tender. - SKIN: No rashes or lesions. Warm. - NEUROLOGIC: No meningismus or focal neurological deficits. CN II-XII grossly intact. - PSYCHIATRIC: Cooperative. Appropriate mood and affect. Course Vital Signs: Vital signs: Vital Signs Temperature 97.9 F 05/08/21 16:33 Pulse Rate 59 L 05/08/21 18:55 Respiratory Rate 17 05/08/21 18:55 Blood Pressure 147/74 05/08/21 18:55 Pulse Oximetry 96 05/08/21 18:55 MDM - Chest Pain MDM Narrative: Medical decision making narrative: 60-year-old female presents due to shortness of breath cough and URI symptoms. She is hemodynamically stable afebrile nontoxic-appearing. Ambulated without desaturation. Covid swab was negative. EKG and troponin do not reveal any sign of acute ischemia or other acute abnormality. She has had ongoing symptoms for a week. Remainder of lab work is unremarkable. D-dimer is negative. At this time I believe patient would be safe for discharge and outpatient follow-up. Return precautions provided. Plan was reviewed with the patient who expressed understanding. Questions answered. Patient will follow up with PCP. Patient discharged in stable condition. Lab Data: Labs: Lab Results 05/08/21 05/08/21 05/08/21 17:14 17:14 17:14 WBC 10.5 10^3/uL H 10 ^3/uL (4.0-10.0) RBC 4.84 10^6/uL 10^6 /uL (4.1-5.3) Hgb 13.5 g/dL g/dL (11.5-15.3) Hct 40.4 % % (37.0-47.0) MCV 83.5 fl fl (81-99) MCH 27.9 pg L pg (28.0-34.0) MCHC 33.4 g/dL g/dL (30.0-36.0) RDW 12.4 % % (12.1-15.1) Plt Count 330 10^3/cmm 10^3 /cmm (130-400) MPV 10.6 fL H fL (7.4-10.4) Neut % (Auto) 55.7 % % Lymph % (Auto) 31.7 % % [place] % (Auto) 9.4 % % Eos % (Auto) 2.3 % % Baso % (Auto) 0.4 % % Neut # (Auto) 5.83 10^3/uL 10^3 /uL (1.8-7.7) Lymph # (Auto) 3.3 10^3/uL 10^3/ uL (0.8-4.8) [place] # (Auto) 1.0 10^3/uL H 10^ 3/uL (0.2-0.9) Eos # (Auto) 0.2 10^3/uL 10^3/ uL (0.0-0.8) Baso # (Auto) 0.0 10^3/uL 10^3/ uL (0.0-0.1) Nucleated RBC % (a uto) 0 % % Nucleated RBCs # 0.0 /100WBC /100W BC PT 13.50 SECONDS SEC ONDS (12.1-14.9) INR 1.00 (0.8-1.2) APTT 28.5 SECONDS SECO NDS (23.9-36.7) D-Dimer 0.50 ug/mIFEU ug/ mIFEU (0-0.59) Sodium 132 mmol/L L mmol /L (136-145) Potassium 4.7 mmol/L mmol/L (3.5-5.1) Chloride 95 mmol/L L mmol/ L (98-107) Carbon Dioxide 27 mmol/L mmol/L (22-29) Anion Gap 14.7 (5-19) BUN 11 mg/dL mg/dL (8-23) Creatinine 0.8 mg/dL mg/dL (0.5-0.9) GFR Calculation 73.2 mL/min L mL/ min (90-130) Glucose 202 mg/dL H mg/dL (65-115) Calculated Osmolal ity 279 mOsm/kg L mOs m/kg (285-295) Calcium 9.3 mg/dL mg/dL (8.5-10.5) Total Bilirubin 0.4 mg/dL mg/dL (0.15-1.2) AST 13 U/L U/L (0-32) ALT 12 U/L U/L (0-33) Alkaline Phosphata se 101 IU/L IU/L (35-105) Troponin T Baselin e NT-Pro-B Natriuret Pep 25 pg/mL pg/mL (0-125) Total Protein 7.0 g/dL g/dL (6.6-8.7) Albumin 4.0 g/dL g/dL (3.5-5.2) Globulin 3.0 g/dL g/dL (1.3-4.6) Lipase 38 U/L U/L (13-60) TSH 0.53 uIU/mL uIU/m L (0.27-4.20) SARS-CoV-2 Ag (Rap id) 05/08/21 05/08/21 17:14 17:19 WBC RBC Hgb Hct MCV MCH MCHC RDW Plt Count MPV Neut % (Auto) Lymph % (Auto) [place] % (Auto) Eos % (Auto) Baso % (Auto) Neut # (Auto) Lymph # (Auto) [place] # (Auto) Eos # (Auto) Baso # (Auto) Nucleated RBC % (a uto) Nucleated RBCs # PT INR APTT D-Dimer Sodium Potassium Chloride Carbon Dioxide Anion Gap BUN Creatinine GFR Calculation Glucose Calculated Osmolal ity Calcium Total Bilirubin AST ALT Alkaline Phosphata se Troponin T Baselin e 7 ng/L ng/L (0-10) NT-Pro-B Natriuret Pep Total Protein Albumin Globulin Lipase TSH SARS-CoV-2 Ag (Rap id) Negative (Negative) EKG Data^: EKG 1: Other EKG comments: Sinus rhythm with PVC, no sign of acute ischemia or other acute abnormality. Discharge Plan Discharge Prescriptions: No Action Humalog KwikPen Insulin 100 unit/mL insulin pen 4 unit SUBCUT TID RF: 0 Tradjenta 5 mg tablet 5 mg PO DAILY 90 Days Qty: 90 RF: 3 Lantus Solostar U-100 Insulin 100 unit/mL (3 mL) insulin pen 40 unit SUBCUT DAILY 90 Days Qty: 36 RF: 3 (DME) FreeStyle Adwoa 14 Day Sensor Kit See Rx Instructions .Route Qty: 3 RF: 3 atorvastatin 40 mg tablet 40 mg PO DAILY RF: 0 estradiol 0.5 mg tablet 0.5 mg PO DAILY RF: 0 dicyclomine 10 mg capsule See Rx Instructions .ROUTE .COMPLEX RF: 0 escitalopram oxalate 10 mg tablet 10 mg PO DAILY RF: 0 duloxetine 30 mg capsule,delayed release(/EC) 30 mg PO DAILY RF: 0 Aspirin Low Dose 81 mg Tablet,Delayed Release (Dr/Ec) 81 mg PO DAILY RF: 0 Euthyrox 125 mcg tablet 112 mcg PO DAILY RF: 0 Celebrex 100 mg capsule 100 mg PO BID Qty: 20 RF: 0 cyclobenzaprine 5 mg tablet 5 mg PO TID PRN (Reason: muscle spasm) Qty: 10 RF: 0 pantoprazole 40 mg tablet,delayed release (DR/EC) 40 mg PO BID 14 Days Qty: 28 RF: 0 Carafate 1 gram tablet 1 g PO Q6H 28 Days Qty: 112 RF: 0 Coding Level of Care Code ED Supervisor Last Model Department for Natyg Naga
[2021-05-08 17:44] LABS: Basophils % 0.4 %; Eosinophils # 0.2 10^3/uL (0.0-0.8); Eosinophils % 2.3 %; Hematocrit 40.4 % (37.0-47.0); Hemoglobin 13.5 g/dL (11.5-15.3); Lymphocytes # 3.3 10^3/uL (0.8-4.8); Lymphocytes % 31.7 %; Mean Corpuscular HGB Conc 33.4 g/dL (30.0-36.0); Mean Corpuscular Hemoglobin 27.9 pg (28.0-34.0); Mean Corpuscular Volume 83.5 fl (81-99); Mean Platelet Volume 10.6 fL (7.4-10.4); Monocytes % 9.4 %; Neutrophils # 5.83 10^3/uL (1.8-7.7); Neutrophils % 55.7 %; Nucleated Red Blood Cells % 0 %; Platelet Count 330 10^3/cmm (130-400); Red Blood Count 4.84 10^6/uL (4.1-5.3); Red Cell Distribution Width 12.4 % (12.1-15.1); White Blood Count 10.5 10^3/uL (4.0-10.0)
[2021-05-08 18:05] LABS: Partial Thromboplastin Time 28.5 SECONDS (23.9-36.7)
[2021-05-08 18:06] LABS: Troponin(5th) Baseline 7 ng/L (0-10)
[2021-05-08] MEDS: sodium chloride 0.9% 500 ML 999 ML IV (18:07)
[2021-05-08] MEDS: ondansetron 2 mg/ML SDV 2 mL 4 MG IVP (18:07)
[2021-05-08] MEDS: aspirin 81 mg Chew Tablet 324 MG PO (18:07)
[2021-05-08] MEDS: dexamethasone 10 mg/mL INJ IVP (18:07)
[2021-05-08 18:11] LABS: SARS Covid-2 Antigen Negative (Negative)
[2021-05-08 18:16] VITALS: BP 150/71; PULSE 62; RESP 17; O2SAT 96
[2021-05-08 18:17] LABS: Alanine Aminotransferase 12 U/L (0-33); Alkaline Phosphatase 101 IU/L (35-105); Anion Gap 14.7 (5-19); Aspartate Amino Transferase 13 U/L (0-32); Blood Urea Nitrogen 11 mg/dL (8-23); Calcium 9.3 mg/dL (8.5-10.5); Carbon Dioxide 27 mmol/L (22-29); Chloride 95 mmol/L (98-107); Glomerular Filtration Rate 73.2 mL/min (90-130); Glucose 202 mg/dL (65-115); Lipase 38 U/L (13-60); NT Pro B Type Natriuretic Pept 25 pg/mL (0-125); Osmolality Calculated 279 mOsm/kg (285-295); Potassium 4.7 mmol/L (3.5-5.1); Sodium 132 mmol/L (136-145); Thyroid Stimulating Hormone 0.53 uIU/mL (0.27-4.20); Total Bilirubin 0.4 mg/dL (0.15-1.2)
[2021-05-08 18:55] VITALS: BP 147/74; PULSE 59; RESP 17; O2SAT 96
--- NOTE | 2021-05-08 19:09 | PC.NURSE ---
Pt. walked with SPO2 monitor on . Pt. maintained saturation of 97 percent while ambulating. Pt. states that she feels alot better and family is excited about home.
[2021-05-08 19:25] VITALS: BP 144/70; PULSE 73; RESP 18; O2SAT 97
== END 2021-05-08 19:27 | disposition home or self-care (01) ==
PROVIDERS: Emergency Provider Emergency Medicine; PCP Electrodiagnostic Medicine
DX: R07.9 Chest pain, unspecified (principal); Z79.82 Long term (current) use of aspirin; Z79.4 Long term (current) use of insulin; E11.9 Type 2 diabetes mellitus without complications; Z20.822 Contact with and (suspected) exposure to COVID-19
CPT/HCPCS: 36415; 71045; 80053; 83690; 83880; 84443; 84484; 85025; 85378; 85610; 85730; 87426; 93005; 96374; 96375; 99283; J1100; J2405; J7040

== ENCOUNTER 2021-05-11 16:46 | Emergency (ER) | payer OTHER, SELFPAY ==
[2021-05-11 16:57] VITALS: BP 126/82; PULSE 74; RESP 18; TEMP 36.6; O2SAT 99; BMI 29.2
[2021-05-11 17:11] LABS: Glucose Point of Care 209 mg/dL (70-110)
--- NOTE | 2021-05-11 17:30 | ECG_ITS ---
[facility] Test Date: 2021-05-11 Pat Name: Lilo Chong Department: Room: Gender: Female Home Health Nurse Licensed Practical: : 1960 Requested By: Esteban Gonzalez Order Number: [id number] Reading MD: TOREY HAYES Measurements Intervals [place] Rate: 91 P: 75 [place]: 132 QRS: 32 QRSD: 89 T: 60 QT: 349 QTc: 429 Interpretive Statements SINUS RHYTHM POSSIBLE RIGHT ATRIAL ENLARGEMENT [0.25mV P-WAVE] POSSIBLE LEFT ATRIAL ENLARGEMENT [-0.1mV P-WAVE IN V1/V2] Compared to ECG 05/08/2021 16:26:02 No significant changes Electronically Signed On 05-12-2021 0:10:17 CDT by TOREY HAYES [id number] f
--- NOTE | 2021-05-11 17:30 | XRR_ITS ---
PROCEDURE INFORMATION: Exam: XR Chest Exam date and time: 05/11/2021 5:30 PM Age: 60 years old Clinical indication: Cough and dyspnea; Additional info: Dyspnea/cough TECHNIQUE: Imaging protocol: XR of the chest. Views: 1 view. COMPARISON: CR (CHEST, ) 05/08/2021 4:55 PM FINDINGS: Lungs: Unremarkable. No consolidation. Pleural spaces: Unremarkable. No pleural effusion. No pneumothorax. Heart/Mediastinum: Unremarkable. No cardiomegaly. Bones/joints: Unremarkable. XR/XR chest 1V portable [id number] IMPRESSION: No acute findings. Radiation Dose CTDIVOL = (mGy): DLP = (mGy-cm)
--- NOTE | 2021-05-11 17:32 | W.ED.SOB ---
Documented by User: Esteban CurtisDO 05/14/21 08:01 HPI - SOB/Dyspnea General: Chief Complaint: Shortness of Breath/Dyspnea Stated Complaint: CHEST PAIN/SOB/DIZZY/HIGH BLOOD SUGAR Time Seen by Provider: 05/11/21 17:15 History of Present Illness: HPI Narrative: 60-year-old female who presents to the emergency room with a plethora of complaints over the last 2 weeks.. She complaining of chest pain shortness of breath and dizziness elevated blood pressure neck pain abdominal pain pelvic pain. She states she was recently diagnosed with a UTI and started on levo floxacillin. She is reports she has developed a vaginal candidiasis from that and started taking [id number] medication. She denies any hematemesis coffee-ground emesis melena or hematochezia. She tells me she has ulcerative colitis as well. We seen earlier this month for reflux-like symptoms with a GI type chest pain which she was started on Protonix and Carafate. Reviewing her medicine list those medicines are not currently on it. She reports that her biggest problem is she just generally feels so weak that she cannot sit up. She states her blood sugars have been elevated throughout the week. However she was recently started on some steroids during that same timeframe. She does not feel that the steroids fully account for the elevation in her blood sugars. She denies significant chest pain. She has no known history of any coronary artery disease she was seen 2 days ago at that time had a D-dimer that was negative. She also had a PCR Covid test done which was also negative. MD elicited complaint: shortness of breath and cough Pertinent past history: diabetes Onset (ago): week(s) Context: recent illness (Upper respiratory infection worsening reflux and cystitis) Timing: constant Severity: mild Exacerbating factors: exertion and movement Relieving factors: rest Known history of: diabetes Associated symptoms: Reports abdominal pain, cough, lightheadedness and myalgias; Deny chest congestion, chest pain, diaphoresis, dizziness, extremity pain, fever(s), hemoptysis, nausea, orthopnea, palpitations, paresthesias, polydipsia, polyuria, rash, sense of impending doom, syncope or vomiting Treatment prior to arrival: other (oral Steroids) Review of Systems Const: Denies: fever(s) or diaphoresis ENMT: Denies: throat pain, ear or mastoid pain, nasal discharge or nasal congestion Card: Reports: lightheadedness; Denies: chest pain, palpitations, syncope or orthopnea Resp: Denies: hemoptysis or chest congestion GI: Reports: abdominal pain; Denies: nausea or vomiting : Denies: flank pain, difficulty voiding, dysuria, urinary frequency or urinary urgency Musc: Denies: extremity pain Skin/Breast: Denies: rash or pruritus Neuro: Denies: dizziness Endo: Denies: polyuria or polydipsia PFSH ED PFSH: Medical History Diabetes type 2, uncontrolled Graves disease Ulcerative colitis Surgical History History of partial hysterectomy History of tubal ligation Family History Other Cancer Diabetes Social History Smoking and tobacco status: never smoked Second hand smoke exposure: No Physical Exam Const: COMMON NORMALS: no acute distress GENERAL APPEARANCE: cooperative and comfortable ORIENTATION/CONSCIOUSNESS: Yes awake, Yes oriented to person, Yes oriented to place and Yes oriented to time HENMT: COMMON NORMALS: normocephalic, atraumatic and hearing grossly normal bilaterally HEAD & SCALP: normocephalic and atraumatic Neck/C-Spine: COMMON NORMALS: no JVD Resp: COMMON NORMALS: normal respiratory effort, No retractions, No use of accessory muscles and clear to auscultation bilaterally AUSCULTATION: clear to auscultation bilaterally Cardio: COMMON NORMALS: no JVD, regular rate, regular rhythm and No murmurs present (Cardio) RATE: regular rate RHYTHM: regular rhythm GI: COMMON NORMALS: Soft to palpation and No hepatosplenomegaly present AUSCULTATION: Yes normoactive bowel sounds PALPATION: Yes Soft to palpation, No Tenderness to palpation present (GI), No Guarding due to palpation present (GI) and Yes No hepatosplenomegaly present Extremity: COMMON NORMALS: normal to inspection, capillary refill normal, no clubbing, cyanosis or edema, no calf tenderness and no pedal edema Neuro: SENSORIUM/ORIENTATION: Yes oriented to person, Yes oriented to place and Yes oriented to time Skin: COMMON NORMALS: no rashes or lesions noted GENERAL SKIN EXAM: no rashes or lesions noted Course Vital Signs: Vital signs: Vital Signs Temperature 97.9 F 05/11/21 16:57 Pulse Rate 66 05/11/21 19:14 Respiratory Rate 18 05/11/21 19:14 Blood Pressure 148/54 05/11/21 19:14 Pulse Oximetry 98 05/11/21 19:14 MDM - SOB/Dyspnea MDM Narrative: Medical decision making narrative: Care turned over to Dr. Bennett at change shift see his notes for final diagnosis and disposition. Lab Data: Labs: Lab Results 05/11/21 05/11/21 05/11/21 17:07 17:40 17:47 WBC RBC Hgb Hct MCV MCH MCHC RDW Plt Count MPV Neut % (Auto) Lymph % (Auto) [place] % (Auto) Eos % (Auto) Baso % (Auto) Neut # (Auto) Lymph # (Auto) [place] # (Auto) Eos # (Auto) Baso # (Auto) Nucleated RBC % (a uto) Nucleated RBCs # Specimen Type Arterial Sample Site Right radial ABG pH 7.47 H (7.35-7.45) ABG pCO2 36.6 mmHg mmHg (35-45) ABG pO2 83.3 mmHg mmHg (80.0-100.0) ABG HCO3 26.4 mmol/L H mmo l/L (22-26) ABG O2 Saturation 97.4 ABG Base Excess 2.8 mmol/L H mmol /L (-2.0-2.0) Eusebio Test Yes A-a O2 Gradient 19.7 mmHg H mmHg (5-10) Hematocrit 43.6 % % (37-47) Hgb O2 Saturation 96.4 % % (95-100) Carboxyhemoglobin 0.7 %THgb %THgb (0.4-20.1) Methemoglobin 0.4 % % (0.4-1.5) Total Hemoglobin 14.2 g/dL g/dL (12-16) Sodium 137.0 mmol/L mmol /L (131-143) Potassium 3.8 mmol/L mmol/L (3.5-5.0) Glucose 201.0 mg/dL H mg/ dL (70-115) Ionized Calcium 1.3 mmol/L mmol/L (1.1-1.4) O2 Delivery Device Room air FiO2 0.0 % % Specimen Drawn By Duner [employer] Skills Teacher ID Duner Chloride Carbon Dioxide Anion Gap BUN Creatinine GFR Calculation POC Glucose 209 mg/dL H mg/dL (70-110) Calculated Osmolal ity Lactic Acid Calcium Total Bilirubin AST ALT Alkaline Phosphata se Creatine Kinase Total Protein Albumin Globulin Lipase Urine Color Yellow (Yellow) Urine Appearance Clear (CLEAR) Urine pH 8 H (5-7) Ur Specific Gravit y 1.010 (1.005-1.030) Urine Protein Neg (Negative) Urine Glucose (UA) 4+ H (Normal) Urine Ketones Negative (Negative) Urine Blood Neg (Negative) Urine Nitrate Negative (Negative) Urine Bilirubin Neg (Negative) Prot Sulfosalicyli c Acd Negative (Negative) Urine Urobilinogen Norm mg/dL mg/dL (Negative) Ur Leukocyte Tianna ase Negative (Negative) Serum Ketones 05/11/21 05/11/21 05/11/21 17:56 17:56 17:56 WBC 10.4 10^3/uL H 10 ^3/uL (4.0-10.0) RBC 5.06 10^6/uL 10^6 /uL (4.1-5.3) Hgb 14.2 g/dL g/dL (11.5-15.3) Hct 41.8 % % (37.0-47.0) MCV 82.6 fl fl (81-99) MCH 28.1 pg pg (28.0-34.0) MCHC 34.0 g/dL g/dL (30.0-36.0) RDW 12.3 % % (12.1-15.1) Plt Count 360 10^3/cmm 10^3 /cmm (130-400) MPV 10.1 fL fL (7.4-10.4) Neut % (Auto) 63.5 % % Lymph % (Auto) 25.2 % % [place] % (Auto) 9.7 % % Eos % (Auto) 0.8 % % Baso % (Auto) 0.3 % % Neut # (Auto) 6.59 10^3/uL 10^3 /uL (1.8-7.7) Lymph # (Auto) 2.6 10^3/uL 10^3/ uL (0.8-4.8) [place] # (Auto) 1.0 10^3/uL H 10^ 3/uL (0.2-0.9) Eos # (Auto) 0.1 10^3/uL 10^3/ uL (0.0-0.8) Baso # (Auto) 0.0 10^3/uL 10^3/ uL (0.0-0.1) Nucleated RBC % (a uto) 0 % % Nucleated RBCs # 0.0 /100WBC /100W BC Specimen Type Sample Site ABG pH ABG pCO2 ABG pO2 ABG HCO3 ABG O2 Saturation ABG Base Excess Eusebio Test A-a O2 Gradient Hematocrit Hgb O2 Saturation Carboxyhemoglobin Methemoglobin Total Hemoglobin Sodium 136 mmol/L mmol/L (136-145) Potassium 3.6 mmol/L mmol/L (3.5-5.1) Glucose 196 mg/dL H mg/dL (65-115) Ionized Calcium O2 Delivery Device FiO2 Specimen Drawn By Construction Skills Teacher ID Chloride 97 mmol/L L mmol/ L (98-107) Carbon Dioxide 28 mmol/L mmol/L (22-29) Anion Gap 14.6 (5-19) BUN 10 mg/dL mg/dL (8-23) Creatinine 0.7 mg/dL mg/dL (0.5-0.9) GFR Calculation 85.4 mL/min L mL/ min (90-130) POC Glucose Calculated Osmolal ity 286 mOsm/kg mOsm/ kg (285-295) Lactic Acid 1.5 mmol/L mmol/L (0.5-2.2) Calcium 9.4 mg/dL mg/dL (8.5-10.5) Total Bilirubin 0.3 mg/dL mg/dL (0.15-1.2) AST 18 U/L U/L (0-32) ALT 17 U/L U/L (0-33) Alkaline Phosphata se 97 IU/L IU/L (35-105) Creatine Kinase 95 U/L U/L (26-192) Total Protein 7.3 g/dL g/dL (6.6-8.7) Albumin 4.3 g/dL g/dL (3.5-5.2) Globulin 3.0 g/dL g/dL (1.3-4.6) Lipase 33 U/L U/L (13-60) Urine Color Urine Appearance Urine pH Ur Specific Gravit y Urine Protein Urine Glucose (UA) Urine Ketones Urine Blood Urine Nitrate Urine Bilirubin Prot Sulfosalicyli c Acd Urine Urobilinogen Ur Leukocyte Tianna ase Serum Ketones 05/11/21 17:56 WBC RBC Hgb Hct MCV MCH MCHC RDW Plt Count MPV Neut % (Auto) Lymph % (Auto) [place] % (Auto) Eos % (Auto) Baso % (Auto) Neut # (Auto) Lymph # (Auto) [place] # (Auto) Eos # (Auto) Baso # (Auto) Nucleated RBC % (a uto) Nucleated RBCs # Specimen Type Sample Site ABG pH ABG pCO2 ABG pO2 ABG HCO3 ABG O2 Saturation ABG Base Excess Eusebio Test A-a O2 Gradient Hematocrit Hgb O2 Saturation Carboxyhemoglobin Methemoglobin Total Hemoglobin Sodium Potassium Glucose Ionized Calcium O2 Delivery Device FiO2 Specimen Drawn By Construction Skills Teacher ID Chloride Carbon Dioxide Anion Gap BUN Creatinine GFR Calculation POC Glucose Calculated Osmolal ity Lactic Acid Calcium Total Bilirubin AST ALT Alkaline Phosphata se Creatine Kinase Total Protein Albumin Globulin Lipase Urine Color Urine Appearance Urine pH Ur Specific Gravit y Urine Protein Urine Glucose (UA) Urine Ketones Urine Blood Urine Nitrate Urine Bilirubin Prot Sulfosalicyli c Acd Urine Urobilinogen Ur Leukocyte Tianna ase Serum Ketones Negative (Negative) Discharge Plan Discharge Patient Disposition: Home Clinical Impression: Dizziness, Dyspnea Condition: Stable Prescriptions: No Action Humalog KwikPen Insulin 100 unit/mL insulin pen 4 unit SUBCUT TID RF: 0 Tradjenta 5 mg tablet 5 mg PO DAILY 90 Days Qty: 90 RF: 3 Lantus Solostar U-100 Insulin 100 unit/mL (3 mL) insulin pen 40 unit SUBCUT DAILY 90 Days Qty: 36 RF: 3 (DME) FreeStyle Adwoa 14 Day Sensor Kit See Rx Instructions .Route Qty: 3 RF: 3 atorvastatin 40 mg tablet 40 mg PO DAILY RF: 0 estradiol 0.5 mg tablet 0.5 mg PO DAILY RF: 0 dicyclomine 10 mg capsule See Rx Instructions .ROUTE .COMPLEX RF: 0 escitalopram oxalate 10 mg tablet 10 mg PO DAILY RF: 0 duloxetine 30 mg capsule,delayed release(DR/EC) 30 mg PO DAILY RF: 0 Aspirin Low Dose 81 mg Tablet,Delayed Release (Dr/Ec) 81 mg PO DAILY RF: 0 Euthyrox 125 mcg tablet 112 mcg PO DAILY RF: 0 Celebrex 100 mg capsule 100 mg PO BID Qty: 20 RF: 0 cyclobenzaprine 5 mg tablet 5 mg PO TID PRN (Reason: muscle spasm) Qty: 10 RF: 0 Carafate 1 gram tablet 1 g PO Q6H 28 Days Qty: 112 RF: 0 Discharge Orders: Discharge ED (Routine); Ordered 05/11/21 Ordered By: Rema Bennett Referrals: Art Roman DO [Primary Care Provider] - Discharge Diet: Advance as tolerated Discharge Activity: Resume usual activity Patient Instructions: Dyspnea (ED) Coding Level of Care Code ED Medical Assistant Secretary for Chg Fwd Exam Comprehensive Documented by User: Rema Bennett MD 05/11/21 18:49 HPI - SOB/Dyspnea General: Chief Complaint: Shortness of Breath/Dyspnea Stated Complaint: CHEST PAIN/SOB/DIZZY/HIGH BLOOD SUGAR Time Seen by Provider: 05/11/21 17:15 PFSH ED PFSH: Medical History Diabetes type 2, uncontrolled Graves disease Ulcerative colitis Surgical History History of partial hysterectomy History of tubal ligation Family History Other Cancer Diabetes Social History Smoking and tobacco status: never smoked Second hand smoke exposure: No Course Vital Signs: Vital signs: Vital Signs Temperature 97.9 F 05/11/21 16:57 Pulse Rate 66 05/11/21 19:14 Respiratory Rate 18 05/11/21 19:14 Blood Pressure 148/54 05/11/21 19:14 Pulse Oximetry 98 05/11/21 19:14 MDM - SOB/Dyspnea MDM Narrative: Medical decision making narrative: Patient presents here with multiple complaints including dizziness and dyspnea. Patient's imaging and lab work here is all normal vital signs are normal as well. She has no signs of acute findings and she is stable for discharge. She is to follow-up with her PCP and return if worsening. She understands agrees to plan. Lab Data: Labs: Lab Results 05/11/21 05/11/21 05/11/21 17:07 17:40 17:47 WBC RBC Hgb Hct MCV MCH MCHC RDW Plt Count MPV Neut % (Auto) Lymph % (Auto) [place] % (Auto) Eos % (Auto) Baso % (Auto) Neut # (Auto) Lymph # (Auto) [place] # (Auto) Eos # (Auto) Baso # (Auto) Nucleated RBC % (a uto) Nucleated RBCs # Specimen Type Arterial Sample Site Right radial ABG pH 7.47 H (7.35-7.45) ABG pCO2 36.6 mmHg mmHg (35-45) ABG pO2 83.3 mmHg mmHg (80.0-100.0) ABG HCO3 26.4 mmol/L H mmo l/L (22-26) ABG O2 Saturation 97.4 ABG Base Excess 2.8 mmol/L H mmol /L (-2.0-2.0) Eusebio Test Yes A-a O2 Gradient 19.7 mmHg H mmHg (5-10) Hematocrit 43.6 % % (37-47) Hgb O2 Saturation 96.4 % % (95-100) Carboxyhemoglobin 0.7 %THgb %THgb (0.4-20.1) Methemoglobin 0.4 % % (0.4-1.5) Total Hemoglobin 14.2 g/dL g/dL (12-16) Sodium 137.0 mmol/L mmol /L (131-143) Potassium 3.8 mmol/L mmol/L (3.5-5.0) Glucose 201.0 mg/dL H mg/ dL (70-115) Ionized Calcium 1.3 mmol/L mmol/L (1.1-1.4) O2 Delivery Device Room air FiO2 0.0 % % Specimen Drawn By Duner [employer] Teacher ID Duner Chloride Carbon Dioxide Anion Gap BUN Creatinine GFR Calculation POC Glucose 209 mg/dL H mg/dL (70-110) Calculated Osmolal ity Lactic Acid Calcium Total Bilirubin AST ALT Alkaline Phosphata se Creatine Kinase Total Protein Albumin Globulin Lipase Urine Color Yellow (Yellow) Urine Appearance Clear (CLEAR) Urine pH 8 H (5-7) Ur Specific Gravit y 1.010 (1.005-1.030) Urine Protein Neg (Negative) Urine Glucose (UA) 4+ H (Normal) Urine Ketones Negative (Negative) Urine Blood Neg (Negative) Urine Nitrate Negative (Negative) Urine Bilirubin Neg (Negative) Prot Sulfosalicyli c Acd Negative (Negative) Urine Urobilinogen Norm mg/dL mg/dL (Negative) Ur Leukocyte Tianna ase Negative (Negative) Serum Ketones 05/11/21 05/11/21 05/11/21 17:56 17:56 17:56 WBC 10.4 10^3/uL H 10 ^3/uL (4.0-10.0) RBC 5.06 10^6/uL 10^6 /uL (4.1-5.3) Hgb 14.2 g/dL g/dL (11.5-15.3) Hct 41.8 % % (37.0-47.0) MCV 82.6 fl fl (81-99) MCH 28.1 pg pg (28.0-34.0) MCHC 34.0 g/dL g/dL (30.0-36.0) RDW 12.3 % % (12.1-15.1) Plt Count 360 10^3/cmm 10^3 /cmm (130-400) MPV 10.1 fL fL (7.4-10.4) Neut % (Auto) 63.5 % % Lymph % (Auto) 25.2 % % [place] % (Auto) 9.7 % % Eos % (Auto) 0.8 % % Baso % (Auto) 0.3 % % Neut # (Auto) 6.59 10^3/uL 10^3 /uL (1.8-7.7) Lymph # (Auto) 2.6 10^3/uL 10^3/ uL (0.8-4.8) [place] # (Auto) 1.0 10^3/uL H 10^ 3/uL (0.2-0.9) Eos # (Auto) 0.1 10^3/uL 10^3/ uL (0.0-0.8) Baso # (Auto) 0.0 10^3/uL 10^3/ uL (0.0-0.1) Nucleated RBC % (a uto) 0 % % Nucleated RBCs # 0.0 /100WBC /100W BC Specimen Type Sample Site ABG pH ABG pCO2 ABG pO2 ABG HCO3 ABG O2 Saturation ABG Base Excess Eusebio Test A-a O2 Gradient Hematocrit Hgb O2 Saturation Carboxyhemoglobin Methemoglobin Total Hemoglobin Sodium 136 mmol/L mmol/L (136-145) Potassium 3.6 mmol/L mmol/L (3.5-5.1) Glucose 196 mg/dL H mg/dL (65-115) Ionized Calcium O2 Delivery Device FiO2 Specimen Drawn By Construction Skills Teacher ID Chloride 97 mmol/L L mmol/ L (98-107) Carbon Dioxide 28 mmol/L mmol/L (22-29) Anion Gap 14.6 (5-19) BUN 10 mg/dL mg/dL (8-23) Creatinine 0.7 mg/dL mg/dL (0.5-0.9) GFR Calculation 85.4 mL/min L mL/ min (90-130) POC Glucose Calculated Osmolal ity 286 mOsm/kg mOsm/ kg (285-295) Lactic Acid 1.5 mmol/L mmol/L (0.5-2.2) Calcium 9.4 mg/dL mg/dL (8.5-10.5) Total Bilirubin 0.3 mg/dL mg/dL (0.15-1.2) AST 18 U/L U/L (0-32) ALT 17 U/L U/L (0-33) Alkaline Phosphata se 97 IU/L IU/L (35-105) Creatine Kinase 95 U/L U/L (26-192) Total Protein 7.3 g/dL g/dL (6.6-8.7) Albumin 4.3 g/dL g/dL (3.5-5.2) Globulin 3.0 g/dL g/dL (1.3-4.6) Lipase 33 U/L U/L (13-60) Urine Color Urine Appearance Urine pH Ur Specific Gravit y Urine Protein Urine Glucose (UA) Urine Ketones Urine Blood Urine Nitrate Urine Bilirubin Prot Sulfosalicyli c Acd Urine Urobilinogen Ur Leukocyte Tianna ase Serum Ketones 05/11/21 17:56 WBC RBC Hgb Hct MCV MCH MCHC RDW Plt Count MPV Neut % (Auto) Lymph % (Auto) [place] % (Auto) Eos % (Auto) Baso % (Auto) Neut # (Auto) Lymph # (Auto) [place] # (Auto) Eos # (Auto) Baso # (Auto) Nucleated RBC % (a uto) Nucleated RBCs # Specimen Type Sample Site ABG pH ABG pCO2 ABG pO2 ABG HCO3 ABG O2 Saturation ABG Base Excess Eusebio Test A-a O2 Gradient Hematocrit Hgb O2 Saturation Carboxyhemoglobin Methemoglobin Total Hemoglobin Sodium Potassium Glucose Ionized Calcium O2 Delivery Device FiO2 Specimen Drawn By Construction Skills Teacher ID Chloride Carbon Dioxide Anion Gap BUN Creatinine GFR Calculation POC Glucose Calculated Osmolal ity Lactic Acid Calcium Total Bilirubin AST ALT Alkaline Phosphata se Creatine Kinase Total Protein Albumin Globulin Lipase Urine Color Urine Appearance Urine pH Ur Specific Gravit y Urine Protein Urine Glucose (UA) Urine Ketones Urine Blood Urine Nitrate Urine Bilirubin Prot Sulfosalicyli c Acd Urine Urobilinogen Ur Leukocyte Tianna ase Serum Ketones Negative (Negative) Imaging Data^: CXR: Attestation: I personally reviewed and interpreted this imaging study as follows: My impression: No acute abnormality Discharge Plan Discharge Patient Disposition: Home Clinical Impression: Dizziness, Dyspnea Condition: Stable Prescriptions: No Action Humalog KwikPen Insulin 100 unit/mL insulin pen 4 unit SUBCUT TID RF: 0 Tradjenta 5 mg tablet 5 mg PO DAILY 90 Days Qty: 90 RF: 3 Lantus Solostar U-100 Insulin 100 unit/mL (3 mL) insulin pen 40 unit SUBCUT DAILY 90 Days Qty: 36 RF: 3 (DME) FreeStyle Adwoa 14 Day Sensor Kit See Rx Instructions .Route Qty: 3 RF: 3 atorvastatin 40 mg tablet 40 mg PO DAILY RF: 0 estradiol 0.5 mg tablet 0.5 mg PO DAILY RF: 0 dicyclomine 10 mg capsule See Rx Instructions .ROUTE .COMPLEX RF: 0 escitalopram oxalate 10 mg tablet 10 mg PO DAILY RF: 0 duloxetine 30 mg capsule,delayed release(DR/EC) 30 mg PO DAILY RF: 0 Aspirin Low Dose 81 mg Tablet,Delayed Release (Dr/Ec) 81 mg PO DAILY RF: 0 Euthyrox 125 mcg tablet 112 mcg PO DAILY RF: 0 Celebrex 100 mg capsule 100 mg PO BID Qty: 20 RF: 0 cyclobenzaprine 5 mg tablet 5 mg PO TID PRN (Reason: muscle spasm) Qty: 10 RF: 0 Carafate 1 gram tablet 1 g PO Q6H 28 Days Qty: 112 RF: 0 Discharge Orders: Discharge ED (Routine); Ordered 05/11/21 Ordered By: Rema Bennett Referrals: Art Roman, DO [Primary Care Provider] - Discharge Diet: Advance as tolerated Discharge Activity: Resume usual activity Patient Instructions: Dyspnea (ED) Coding Level of Care Code ED Medical Assistant Secretary for Chg Fwd Exam Comprehensive
[2021-05-11 17:57] LABS: ABG PCO2 36.6 mmHg (35-45); ABG PH Result 7.47 (7.35-7.45); Base Excess ABG 2.8 mmol/L (-2.0-2.0); HCO3 ABG 26.4 mmol/L (22-26); PO2 ABG 83.3 mmHg (80.0-100.0)
[2021-05-11 17:58] LABS: Blood Gas Allen Test YES; Blood Gas Sample Type ARTERIAL; Oxygen Device ROOM AIR; Oxygen Saturation ABG 97.4; Potassium Level - ABG 3.8 mmol/L (3.5-5.0)
[2021-05-11 17:58] LABS: Add Urine Microscopic? NO; Charge for UA Resulting for Rev
[2021-05-11 17:59] LABS: Alveolar-Arterial Oxygen Gradi 19.7 mmHg (5-10); Arterial Blood Gas Hematocrit 43.6 % (37-47); Blood Gas Sample Site RIGHT RADIAL; Carboxyhemoglobin 0.7 %THgb (0.4-20.1); HGB O2 Sat 96.4 % (95-100); Ionized Calcium Level - ABG 1.3 mmol/L (1.1-1.4); Total Hemoglobin 14.2 g/dL (12-16)
[2021-05-11 18:00] LABS: Methemoglobin 0.4 % (0.4-1.5)
[2021-05-11 18:03] VITALS: BP 141/74; PULSE 71; RESP 13; O2SAT 97
[2021-05-11 18:03] LABS: Basophils % 0.3 %; Eosinophils # 0.1 10^3/uL (0.0-0.8); Eosinophils % 0.8 %; Hematocrit 41.8 % (37.0-47.0); Hemoglobin 14.2 g/dL (11.5-15.3); Lymphocytes # 2.6 10^3/uL (0.8-4.8); Lymphocytes % 25.2 %; Mean Corpuscular Hemoglobin 28.1 pg (28.0-34.0); Mean Corpuscular Volume 82.6 fl (81-99); Mean Platelet Volume 10.1 fL (7.4-10.4); Monocytes % 9.7 %; Neutrophils # 6.59 10^3/uL (1.8-7.7); Neutrophils % 63.5 %; Nucleated Red Blood Cells % 0 %; Platelet Count 360 10^3/cmm (130-400); Red Blood Count 5.06 10^6/uL (4.1-5.3); Red Cell Distribution Width 12.3 % (12.1-15.1); White Blood Count 10.4 10^3/uL (4.0-10.0)
[2021-05-11 18:18] LABS: Blood Urine Neg (Negative); Glucose Urine UA 4+ (Normal); Ketones Urine Negative (Negative); Protein Urine Neg (Negative); Urine Appearance Clear (CLEAR); Urine Color Yellow (Yellow); pH Urine 8 (5-7)
[2021-05-11 18:19] LABS: Bilirubin Urine Neg (Negative); Leukocyte Esterase Urine Negative (Negative); Nitrate Urine Negative (Negative); Sulfosalicylic Acid Urine Negative (Negative); Urobilinogen Urine Norm (Negative)
[2021-05-11 18:26] LABS: Ketone (Acetest) Serum Negative (Negative)
[2021-05-11 18:35] LABS: Alanine Aminotransferase 17 U/L (0-33); Albumin Level 4.3 g/dL (3.5-5.2); Alkaline Phosphatase 97 IU/L (35-105); Anion Gap 14.6 (5-19); Aspartate Amino Transferase 18 U/L (0-32); Blood Urea Nitrogen 10 mg/dL (8-23); Calcium 9.4 mg/dL (8.5-10.5); Carbon Dioxide 28 mmol/L (22-29); Chloride 97 mmol/L (98-107); Creatine Phosphokinase 95 U/L (26-192); Creatinine Clr Calc Pharmacy 85.8964; Glomerular Filtration Rate 85.4 mL/min (90-130); Glucose 196 mg/dL (65-115); Lipase 33 U/L (13-60); Osmolality Calculated 286 mOsm/kg (285-295); Potassium 3.6 mmol/L (3.5-5.1); Sodium 136 mmol/L (136-145); Total Bilirubin 0.3 mg/dL (0.15-1.2); Total Protein 7.3 g/dL (6.6-8.7)
[2021-05-11 18:36] LABS: Lactic Sepsis W/Reflex 1.5 mmol/L (0.5-2.2)
--- NOTE | 2021-05-11 19:01 | PC.NURSE ---
report given to ainsley norris assumed care.
[2021-05-11 19:14] VITALS: BP 148/54; PULSE 66; RESP 18; O2SAT 98
== END 2021-05-11 19:16 | disposition home or self-care (01) ==
PROVIDERS: Family Medicine; Emergency Provider Emergency Medicine; PCP Electrodiagnostic Medicine
DX: R42 Dizziness and giddiness (principal); R06.00 Dyspnea, unspecified; Z79.82 Long term (current) use of aspirin; Z79.4 Long term (current) use of insulin; E11.9 Type 2 diabetes mellitus without complications
CPT/HCPCS: 36416; 36600; 71045; 80051; 80053; 81003; 82009; 82330; 82550; 82805; 82962; 83605; 83690; 85025; 87040; 93005; 99283

== ENCOUNTER 2021-05-16 11:02 | Outpatient (CLI) | payer OTHER, SELFPAY ==
[2021-05-16 11:24] LABS: Ketone (Acetest) Serum Negative (Negative)
[2021-05-16 11:34] LABS: Alanine Aminotransferase 14 U/L (0-33); Albumin Level 3.9 g/dL (3.5-5.2); Alkaline Phosphatase 82 IU/L (35-105); Anion Gap 15.1 (5-19); Aspartate Amino Transferase 16 U/L (0-32); Blood Urea Nitrogen 6 mg/dL (8-23); Carbon Dioxide 26 mmol/L (22-29); Chloride 98 mmol/L (98-107); Globulin 2.7 g/dL (1.3-4.6); Glucose 284 mg/dL (65-115); Lipase 32 U/L (13-60); Osmolality Calculated 288 mOsm/kg (285-295); Potassium 4.1 mmol/L (3.5-5.1); Sodium 135 mmol/L (136-145); Total Bilirubin 0.6 mg/dL (0.15-1.2); Total Protein 6.6 g/dL (6.6-8.7)
== END 2021-05-16 11:03 | disposition home or self-care (01) ==
PROVIDERS: PCP Electrodiagnostic Medicine; Visit Provider Electrodiagnostic Medicine
DX: E11.69 Type 2 diabetes mellitus with other specified complication (principal); R00.2 Palpitations; R30.0 Dysuria; E11.65 Type 2 diabetes mellitus with hyperglycemia; E03.9 Hypothyroidism, unspecified
CPT/HCPCS: 80053; 82009; 83690

== ENCOUNTER → 2021-05-18 14:02 | Outpatient (BNVA) | payer OTHER, SELFPAY | PROVIDERS: PCP Electrodiagnostic Medicine; Visit Provider Internal Medicine | DX: E11.65 Type 2 diabetes mellitus with hyperglycemia (principal); E16.2 Hypoglycemia, unspecified; E03.9 Hypothyroidism, unspecified; N12 Tubulo-interstitial nephritis, not specified as acute or chronic; Z79.4 Long term (current) use of insulin | CPT/HCPCS: 99214 ==

== ENCOUNTER 2021-05-23 07:31 | Outpatient (CLI) | payer OTHER, SELFPAY | END 2021-05-23 07:32 | disposition home or self-care (01) | LOC: LAB 07:35 | PROVIDERS: PCP Electrodiagnostic Medicine; Visit Provider Internal Medicine | DX: E03.9 Hypothyroidism, unspecified (principal); E11.65 Type 2 diabetes mellitus with hyperglycemia; E16.2 Hypoglycemia, unspecified | CPT/HCPCS: 36415; 82533 ==

== ENCOUNTER → 2021-06-24 10:19 | Outpatient (BNVA) | payer OTHER, SELFPAY | PROVIDERS: PCP Electrodiagnostic Medicine; Visit Provider Internal Medicine | DX: E11.65 Type 2 diabetes mellitus with hyperglycemia (principal); E03.9 Hypothyroidism, unspecified; Z79.4 Long term (current) use of insulin | CPT/HCPCS: 99214 ==

== ENCOUNTER → 2021-07-24 19:46 | Outpatient (BNVA) | payer OTHER, SELFPAY | PROVIDERS: PCP Electrodiagnostic Medicine; Visit Provider Nurse Practitioner | DX: B34.9 Viral infection, unspecified (principal) | CPT/HCPCS: 87635 ==

== ENCOUNTER 2021-08-01 16:46 | Outpatient (CLI) | payer OTHER, SELFPAY ==
[2021-08-01 17:34] LABS: Blood Urea Nitrogen 7 mg/dL (8-23); Carbon Dioxide 27 mmol/L (22-29); Chloride 99 mmol/L (98-107); Free T4 Free Thyroxine 1.74 ng/dL (0.82-1.77); Glomerular Filtration Rate 85.4 mL/min (90-130); Glucose 110 mg/dL (65-115); Osmolality Calculated 283 mOsm/kg (285-295); Sodium 137 mmol/L (136-145); Thyroid Stimulating Hormone 0.07 uIU/mL (0.27-4.20)
[2021-08-04 08:42] LABS: 25 Hydroxy Vitamin D 25 ng/mL (30-100); Vitamin B12 473 pg/mL (232-1245)
== END 2021-08-01 16:47 | disposition home or self-care (01) ==
LOC: LAB 16:49
PROVIDERS: PCP Electrodiagnostic Medicine; Visit Provider Internal Medicine
DX: E03.9 Hypothyroidism, unspecified (principal); E11.65 Type 2 diabetes mellitus with hyperglycemia; E87.1 Hypo-osmolality and hyponatremia
CPT/HCPCS: 36415; 80048; 82306; 82607; 84439; 84443

== ENCOUNTER 2021-08-04 16:42 | Outpatient (CLI) | payer OTHER, SELFPAY ==
[2021-08-04 17:55] LABS: Thyroid Stimulating Hormone 0.05 uIU/mL (0.27-4.20)
[2021-08-04 20:44] LABS: Free T4 Free Thyroxine 1.53 ng/dL (0.82-1.77)
== END 2021-08-04 16:43 | disposition home or self-care (01) ==
LOC: LAB 16:44
PROVIDERS: PCP Electrodiagnostic Medicine; Visit Provider Internal Medicine
DX: E03.9 Hypothyroidism, unspecified (principal); E16.2 Hypoglycemia, unspecified
CPT/HCPCS: 36415; 84439; 84443

== ENCOUNTER 2021-10-21 13:44 | Outpatient (CLI) | payer OTHER, SELFPAY ==
--- NOTE | 2021-10-21 13:57 | MM_ITS ---
WS: [id number] BILATERAL SCREENING 3D TOMOSYNTHESIS DIGITAL MAMMOGRAM WITH CAD HISTORY: SCREENING COMPARISON: 01/15/2020 and 07/11/2018 Bilateral CC and MLO views submitted. Computer aided detection analyzed. Breast composition: The breasts are heterogeneously dense, which may obscure small masses. No suspici ous masses, microcalcifications or architectural distortion. Benign scattered calcifications in each breast. MM/[place] [id number] IMPRESSION: BI-RADS: 2-Benign FOLLOW UP: 1 Year Follow-up
== END 2021-10-21 13:45 | disposition home or self-care (01) ==
LOC: RADSHAW 13:47
PROVIDERS: PCP Electrodiagnostic Medicine; Visit Provider Electrodiagnostic Medicine
DX: Z12.31 Encounter for screening mammogram for malignant neoplasm of breast (principal)
CPT/HCPCS: 77063; 77067

== ENCOUNTER → 2021-12-29 09:48 | Outpatient (BNVA) | payer OTHER, SELFPAY | PROVIDERS: PCP Electrodiagnostic Medicine; Visit Provider Internal Medicine | DX: E11.65 Type 2 diabetes mellitus with hyperglycemia (principal); E78.2 Mixed hyperlipidemia; E03.9 Hypothyroidism, unspecified; I95.1 Orthostatic hypotension | CPT/HCPCS: 80061; 83036; 84439; 84443 ==

== ENCOUNTER → 2022-02-07 17:51 | Outpatient (BNVA) | payer OTHER, SELFPAY | PROVIDERS: PCP Family Medicine; Visit Provider Family Medicine | DX: R30.0 Dysuria (principal) | CPT/HCPCS: 81000; 87086 ==

== ENCOUNTER → 2022-02-08 14:58 | Outpatient (BNVA) | payer OTHER, SELFPAY | PROVIDERS: PCP Family Medicine; Visit Provider Family Medicine | DX: R23.2 Flushing (principal); F39 Unspecified mood [affective] disorder | CPT/HCPCS: 80053; 82150; 83690; 84439; 84443; 85025; 86140 ==

== ENCOUNTER → 2022-03-06 07:44 | Outpatient (BNVA) | payer OTHER, SELFPAY | PROVIDERS: PCP Family Medicine; Visit Provider Family Medicine | DX: R31.9 Hematuria, unspecified (principal) | CPT/HCPCS: 81003; 87086 ==

== ENCOUNTER 2022-03-17 11:58 | Outpatient (CLI) | payer OTHER, SELFPAY ==
[2022-03-17 13:00] LABS: Anion Gap 15.6 (5-19); Blood Urea Nitrogen 7 mg/dL (8-23); Calcium 8.7 mg/dL (8.5-10.5); Carbon Dioxide 28 mmol/L (22-29); Chloride 97 mmol/L (98-107); Glomerular Filtration Rate 101.6 mL/min (90-130); Glucose 189 mg/dL (65-115); Osmolality Calculated 285 mOsm/kg (285-295); Potassium 4.6 mmol/L (3.5-5.1); Sodium 136 mmol/L (136-145)
== END 2022-03-17 11:59 | disposition home or self-care (01) ==
LOC: LAB 12:00
PROVIDERS: PCP Family Medicine; Visit Provider Internal Medicine Cardiovascular Disease
DX: I95.9 Hypotension, unspecified (principal)
CPT/HCPCS: 80048

== ENCOUNTER 2022-04-18 20:13 | Inpatient (IN) | payer OTHER, SELFPAY ==
[2022-04-18] VITALS (35 sets, daily range): BP systolic 117–129; BP diastolic 50–64; PULSE 90–122; RESP 18–27; TEMP 36.7; O2SAT 97–100; BMI 25.5
--- NOTE | 2022-04-18 20:22 | CTR_ITS ---
PROCEDURE INFORMATION: Exam: CT Head Without Contrast Exam date and time: 04/18/2022 8:55 PM Age: 61 years old Clinical indication: Altered mental status/memory loss; Confusion or disorientation; Patient HX: Lethargy with n/v. Covid +; Additional info: AMS TECHNIQUE: Imaging protocol: Computed tomography of the head without contrast. Radiation optimization: All CT scans at this facility use at least one of these dose optimization techniques: automated exposure control; mA and/or kV adjustment per patient size (includes targeted exams where dose is matched to clinical indication); or iterative reconstruction. COMPARISON: CT head wo/w con [id number] 09/29/2015 2:27 PM RADIATION DOSE METRICS: Total DLP (mGy-cm): 1021.78 FINDINGS: Brain: Normal. No hemorrhage. Unremarkable white matter. No mass effect. Cerebral ventricles: No ventriculomegaly. Paranasal sinuses: Visualized sinuses are unremarkable. No fluid levels. Mastoid air cells: Visualized mastoid air cells are well aerated. Bones/joints: Unremarkable. No acute fracture. Soft tissues: Unremarkable. CT/CT head wo con* [id number] IMPRESSION: No acute intracranial abnormality.
--- NOTE | 2022-04-18 20:22 | XRR_ITS ---
PROCEDURE INFORMATION: Exam: XR Chest Exam date and time: 04/18/2022 8:29 PM Age: 61 years old Clinical indication: Other: Confussion; Additional info: AMS TECHNIQUE: Imaging protocol: Radiologic exam of the chest. Views: 1 view. COMPARISON: CR XR chest 1V portable [id number] 05/11/2021 6:06 PM FINDINGS: Lungs: Unremarkable. No consolidation. Pleural spaces: Unremarkable. No pleural effusion. No pneumothorax. Heart/Mediastinum: Unremarkable. No cardiomegaly. Bones/joints: Unremarkable. XR/XR chest 1V portable [id number] IMPRESSION: No significant findings.
--- NOTE | 2022-04-18 20:24 | ECG_ITS ---
[facility] Test Date: 2022-04-18 Pat Name: Lilo Chong Department: Room: Gender: Female Tire Changer: : 1960 Requested By: Rema Bennett Order Number: [id number] Rich MD: Celeste Hughes M.D. Measurements Intervals [place] Rate: 115 P: 52 [place]: 127 QRS: -17 QRSD: 98 T: 55 QT: 333 QTc: 461 Interpretive Statements SINUS TACHYCARDIA POSSIBLE LEFT ATRIAL ENLARGEMENT [-0.1mV P-WAVE IN V1/V2] Compared to ECG 05/11/2021 16:56:56 Sinus rhythm no longer present Electronically Signed On 04-19-2022 6:01:19 CDT by Celeste Hughes M.D. [email or web address]
--- NOTE | 2022-04-18 20:35 | W.ED.GENADLT ---
HPI - General Adult General: Chief complaint: General Medical Stated complaint: COVID + HIGH BLOOD SUGAR Time Seen by Provider: 04/18/22 20:15 Source: patient and EMS Mode of arrival: EMS Limitations: altered mental status History of Present Illness: 61-year-old female who is a history of diabetes states that she is COVID-positive family called EMS because she has been having vomiting along with lethargy and multiple status. Patient is quite lethargic here she will arouse she answers most my questions appropriately does have some confusion. Patient's blood sugar was high with EMS. Review of Systems General: Reports: ROS unobtainable due to mental status PFSH ED PFSH: Medical History Diabetes type 2, uncontrolled Graves disease Orthostatic hypotension Ulcerative colitis Surgical History History of partial hysterectomy History of tubal ligation Family History Mother Atrial fibrillation Hypertension Family/Other Myocardial infarct Diabetes Father CAD (coronary artery disease) with stents Other Cancer Social History Smoking and tobacco status: never smoked Second hand smoke exposure: No Physical Exam Const: COMMON NORMALS: patient oriented x3 and healthy appearing GENERAL APPEARANCE: lethargic and ill appearing ORIENTATION/CONSCIOUSNESS: Yes lethargic HENMT: COMMON NORMALS: normocephalic and atraumatic HEAD & SCALP: normocephalic and atraumatic Eye: COMMON NORMALS: Equal, round and reactive pupils present and EOMs intact bilaterally PUPIL: Yes Equal, round and reactive pupils present Neck/C-Spine: COMMON NORMALS: full ROM and supple Chest: COMMONS NORMALS: normal inspection of the chest and normal palpation of entire chest wall Resp: COMMON NORMALS: normal respiratory effort, No retractions, No use of accessory muscles and clear to auscultation bilaterally AUSCULTATION: clear to auscultation bilaterally Cardio: COMMON NORMALS: regular rhythm and No murmurs present (Cardio) RATE: tachycardic RHYTHM: regular rhythm GI: COMMON NORMALS: Normal to inspection, nondistended, normoactive bowel sounds present, Soft to palpation, non-tender and no masses PALPATION: Yes Soft to palpation Extremity: COMMON NORMALS: normal to inspection and full ROM Neuro: COMMON NORMALS: patient oriented x3, moves all extremities and no focal motor deficits SENSORIUM/ORIENTATION: Yes lethargic Psych: COMMON NORMALS: mental status grossly normal, Normal thought process present and cooperative THOUGHT PROCESS: Normal thought process present Skin: COMMON NORMALS: no rashes or lesions noted and no wounds GENERAL SKIN EXAM: no rashes or lesions noted Course Vital Signs: Vital signs: Vital Signs Temperature 98.1 F 04/18/22 20:20 Pulse Rate 107 H 04/18/22 20:20 Respiratory Rate 19 H 04/18/22 20:20 Blood Pressure 119/58 04/18/22 20:20 Pulse Oximetry 100 04/18/22 20:20 Oxygen Delivery Me thod 04/18/22 20:20 MDM - General Adult Medical Decision Making Patient presents here with altered mental status likely from DKA she will awaken and answer most my questions but is lethargic she does have a high anion gap with a glucose of 969 we will start on insulin drip she will be admitted to the ICU. Lab Data : 04/18/22 20:21 04/18/22 20:21 Radiology Impressions Chest X-Ray 04/18/22 20:22 IMPRESSION: No significant findings. Head CT 04/18/22 20:22 IMPRESSION: No acute intracranial abnormality. Laboratory Results WBC 16.0 10^3/uL (4.0-10.0) H 04/18/22 20:21 RBC 4.96 10^6/uL (4.1-5.3) 04/18/22 20:21 Hgb 13.7 g/dL (11.5-15.3) 04/18/22 20:21 Hct 45.2 % (37.0-47.0) 04/18/22 20:21 MCV 91.1 fl (81-99) 04/18/22 20:21 MCH 27.6 pg (28.0-34.0) L 04/18/22 20:21 MCHC 30.3 g/dL (30.0-36.0) 04/18/22 20:21 RDW 12.1 % (12.1-15.1) 04/18/22 20:21 Plt Count 288 10^3/cmm (130-400) 04/18/22 20:21 MPV 10.5 fL (7.4-10.4) H 04/18/22 20:21 Neut % (Auto) 83.5 % 04/18/22 20:21 Lymph % (Auto) 6.1 % 04/18/22 20:21 [place] % (Auto) 9.3 % 04/18/22 20:21 Eos % (Auto) 0.0 % 04/18/22 20:21 Baso % (Auto) 0.2 % 04/18/22 20:21 Neut # (Auto) 13.32 10^3/uL (1.8-7.7) H 04/18/22 20:21 Lymph # (Auto) 1.0 10^3/uL (0.8-4.8) 04/18/22 20:21 [place] # (Auto) 1.5 10^3/uL (0.2-0.9) H 04/18/22 20:21 Eos # (Auto) 0.0 10^3/uL (0.0-0.8) 04/18/22 20:21 Baso # (Auto) 0.0 10^3/uL (0.0-0.1) 04/18/22 20:21 Nucleated RBC % (auto) 0 % 04/18/22 20: Nucleated RBCs # 0.0 /100WBC 04/18/22 20:21 Specimen Type Arterial 04/18/22 20:43 Sample Site Radial, left 04/18/22 20:43 ABG pH 7.08 (7.35-7.45) L* 04/18/22 20:43 ABG pCO2 16.0 mmHg (35-45) L* 04/18/22 20:43 ABG pO2 116.0 mmHg (80.0-100.0) H 04/18/22 20:43 ABG HCO3 4.8 mmol/L (22-26) L 04/18/22 20:43 ABG Base Excess -23.1 mmol/L (-2.0-2.0) L 04/18/22 20:43 Eusebio Test Pos 04/18/22 20:43 Hematocrit 44.3 % (37-47) 04/18/22 20:43 O2 Delivery Device None 04/18/22 20:43 FiO2 21.0 % 04/18/22 20:43 Agricultural Produce Sorter ID Nette 04/18/22 20:43 Sodium 129 mmol/L (136-145) L 04/18/22 20:21 Potassium 6.4 mmol/L (3.5-5.1) H 04/18/22 20:21 Chloride 82 mmol/L (98-107) L 04/18/22 20:21 Carbon Dioxide 6 mmol/L (22-29) L* 04/18/22 20:21 Anion Gap 47.4 (5-19) H 04/18/22 20:21 BUN 41 mg/dL (8-23) H 04/18/22 20:21 Creatinine 2.2 mg/dL (0.5-0.9) H 04/18/22 20:21 GFR Calculation 22.7 mL/min (90-130) L 04/18/22 20:21 Glucose 969 mg/dL (65-115) H* 04/18/22 20:21 POC Glucose > 600 mg/dL (70-110) H* 04/18/22 20:42 Calculated Osmolality 326 mOsm/kg (285-295) H 04/18/22 20:21 Calcium 9.1 mg/dL (8.5-10.5) 04/18/22 20:21 Magnesium 2.6 mg/dL (1.7-2.3) H 04/18/22 20:21 Total Bilirubin 0.3 mg/dL (0.15-1.2) 04/18/22 20:21 AST 12 U/L (0-32) 04/18/22 20:21 ALT 13 U/L (0-33) 04/18/22 20:21 Alkaline Phosphatase 104 U/L (35-105) 04/18/22 20:21 Troponin T Baseline 12 ng/L (0-10) H 04/18/22 20:21 Total Protein 6.8 g/dL (6.6-8.7) 04/18/22 20:21 Albumin 4.0 g/dL (3.5-5.2) 04/18/22 20:21 Globulin 2.8 g/dL (1.3-4.6) 04/18/22 20:21 TSH 0.17 uIU/mL (0.27-4.20) L 04/18/22 20:21 Ethyl Alcohol < 10 mg/dL (0-10) 04/18/22 20:21 Serum Ketones Positive (Negative) H 04/18/22 20:21 EKG Data EKG 1: I personally reviewed and interpreted this EKG as follows: EKG interpretation date: 04/18/22 EKG interpretation time: 20:39 Interpretation: sinus tach hr [address] or t wave abnormalities qrs 98 qtc 401 Computer generated interpretation: Chest X-Ray 04/18/22 20:22 IMPRESSION: No significant findings. Head CT 04/18/22 20:22 IMPRESSION: No acute intracranial abnormality. Critical Care Time Critical Care Time: Critical Care Time: Yes Total Critical Care Time: 40 Attestation: The high probability of a clinically significant, sudden or life threatening deterioration of the patient's endocrine system(s) required my full and direct attention, intervention and personal management. The critical care time is as shown. This time is in addition to time spent performing any reported procedures but includes the following: [x] Data and vital sign review and interpretation [x] Patient assessment, examination and intervention [x] Documentation [x] Medication orders and management Discharge Plan Discharge Patient Disposition: Admitted As Inpatient Clinical Impression: DKA (diabetic ketoacidosis), AMS (altered mental status) Condition: Stable Prescriptions: No Action insulin lispro [Humalog U-100 Insulin] 100 unit/mL solution See Rx Instructions .ROUTE .COMPLEX Qty: 50 3RF Rx Instructions: Humalog vial via insulin pump. Max daily dose 50 units.; paroxetine HCl 20 mg tablet 20 mg PO DAILY Qty: 30 0RF Humalog KwikPen Insulin 100 unit/mL insulin pen 4 unit SUBCUT TID Rx Instructions: takes 4 units three times a day, max dose of 30 units per day mesalamine 0.375 gram capsule,extended release 24hr 1.5 g PO DAILY Adult 50 Plus Probiotic 4 billion cell capsule 4,000 mmu cells PO DAILY Rx Instructions: administer with a meal cholecalciferol (vitamin D3) 10 mcg (400 unit) capsule 10 mcg PO DAILY fludrocortisone 0.1 mg tablet 0.1 mg PO DAILY Qty: 90 1RF ampicillin 500 mg capsule 500 mg PO QID 10 Days Qty: 40 0RF (DME) FreeStyle Adwoa 14 Day Sensor Kit See Rx Instructions .Route Qty: 3 3RF Rx Instructions: check blood sugar levothyroxine 100 mcg tablet 100 mcg PO DAILY Qty: 90 3RF Rx Instructions: Take one tablet by mouth daily, 1 hour before breakfast or any other medicine linagliptin 5 mg tablet 5 mg PO DAILY Qty: 90 3RF Rx Instructions: Take one tablet by mouth daily. hydroxyzine HCl 25 mg tablet 25 mg PO BID PRN (Reason: itching) Qty: 60 2RF Paxlovid (EUA) 150 mg x 2- 100 mg tablet See Rx Instructions PO .COMPLEX Qty: 30 0RF Rx Instructions: take TWO 150 mg tablets of nirmatrelvir with ONE 100 mg tablet of ritonavir twice daily for 5 days PO escitalopram oxalate 10 mg tablet 10 mg PO DAILY Referrals: Jayme Joe MD [Primary Care Provider] - Coding Level of Care Code ED Books Binder for Chg Fwd Exam Comprehensive
[2022-04-18 20:36] LABS: Basophils % 0.2 %; Hematocrit 45.2 % (37.0-47.0); Hemoglobin 13.7 g/dL (11.5-15.3); Lymphocytes % 6.1 %; Mean Corpuscular HGB Conc 30.3 g/dL (30.0-36.0); Mean Corpuscular Hemoglobin 27.6 pg (28.0-34.0); Mean Corpuscular Volume 91.1 fl (81-99); Mean Platelet Volume 10.5 fL (7.4-10.4); Monocytes # 1.5 10^3/uL (0.2-0.9); Monocytes % 9.3 %; Neutrophils # 13.32 10^3/uL (1.8-7.7); Neutrophils % 83.5 %; Nucleated Red Blood Cells % 0 %; Platelet Count 288 10^3/cmm (130-400); Red Blood Count 4.96 10^6/uL (4.1-5.3); Red Cell Distribution Width 12.1 % (12.1-15.1)
[2022-04-18 20:46] LABS: Glucose Point of Care > 600 mg/dL (70-110)
[2022-04-18 20:46] LABS: Glucose Point of Care > 600 mg/dL (70-110)
[2022-04-18] MEDS: lactated ringers 1,000 ML 999 ML IV ×2 (20:49→21:58)
[2022-04-18 20:55] LABS: ABG PH Result 7.08 (7.35-7.45); Arterial Blood Gas Hematocrit 44.3 % (37-47); Base Excess ABG -23.1 mmol/L (-2.0-2.0); Blood Gas Allen Test Pos; Blood Gas Operator Identificat WALCI; Blood Gas Sample Site Radial, left; Blood Gas Sample Type Arterial; HCO3 ABG 4.8 mmol/L (22-26)
[2022-04-18 21:13] LABS: Ketone (Acetest) Serum Positive (Negative)
[2022-04-18 21:20] LABS: Alanine Aminotransferase 13 U/L (0-33); Alkaline Phosphatase 104 U/L (35-105); Anion Gap 47.4 (5-19); Aspartate Amino Transferase 12 U/L (0-32); Blood Urea Nitrogen 41 mg/dL (8-23); Calcium 9.1 mg/dL (8.5-10.5); Chloride 82 mmol/L (98-107); Globulin 2.8 g/dL (1.3-4.6); Glomerular Filtration Rate 22.7 mL/min (90-130); Magnesium 2.6 mg/dL (1.7-2.3); Potassium 6.4 mmol/L (3.5-5.1); Sodium 129 mmol/L (136-145); Total Bilirubin 0.3 mg/dL (0.15-1.2); Total Protein 6.8 g/dL (6.6-8.7)
[2022-04-18 21:22] LABS: Troponin(5th) Baseline 12 ng/L (0-10)
[2022-04-18 21:27] LABS: Thyroid Stimulating Hormone 0.17 uIU/mL (0.27-4.20)
[2022-04-18 21:28] LABS: Osmolality Calculated 326 mOsm/kg (285-295)
[2022-04-18 21:30] LABS: Alcohol Level < 10 mg/dL (0-10)
[2022-04-18 21:31] LABS: Glucose 969 mg/dL (65-115)
[2022-04-18 21:32] LABS: Carbon Dioxide 6 mmol/L (22-29)
[2022-04-18] MEDS: insulin regular-human 250 UNIT in sodium chloride 0.9% 250 ML 27.3 UNIT IV (21:56)
[2022-04-18 22:37] LABS: Bilirubin Urine Negative (Negative); Glucose Urine UA 4+ (Normal); Leukocyte Esterase Urine Trace; Nitrate Urine Negative; Protein Urine Trace (Negative); Urine Color Yellow (Yellow); Urobilinogen Urine 0.2 mg/dL (Negative)
--- NOTE | 2022-04-18 22:41 | ECG_ITS ---
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 Measurements Intervals [place] Rate: 98 P: 66 TN: 108 QRS: -10 QRSD: 106 T: 52 QT: 364 QTc: 466 Interpretive Statements SINUS RHYTHM WITH SINUS ARRHYTHMIA WITH SHORT TN INTERVAL POSSIBLE LEFT ATRIAL ENLARGEMENT [-0.1mV P-WAVE IN V1/V2] POSSIBLE LATERAL MYOCARDIAL INFARCTION , PROBABLY OLD [30 ms Q WAVE IN I/aVL/V5/V6] Compared to ECG 04/18/2022 20:35:50 Short TN interval now present Myocardial infarct finding now present Sinus tachycardia no longer present Electronically Signed On 04-19-2022 14:13:03 CDT by Vamshi Smith M.D. [id number]
--- NOTE | 2022-04-18 22:44 | P.HP_ITS ---
Providers/Chief Complaint Admitting Physician: Clif Mancuso MD Primary Care Provider: Jayme Joe MD Chief Complaint: COVID + HIGH BLOOD SUGAR History of Present Illness Lilo Chong is a 61 year old female past medical history of diabetes, Graves', ulcerative colitis, came in with chief complaint of lethargy, generalized weakness, confusion, started since yesterday but got worst today.Patient was recently diagnosed with COVID on home testing on Sunday, and since then she has slowly worsened. She also took 1 dose of Paxlovid at home, and felt bad after taking that and stopped it. Upon arrival in the ER she was worked up for above-mentioned complaint. Pertinent imaging studies: CT head without contrast: No acute intracranial abnormality. X-ray chest: No significant findings. Pertinent labs: WBC:16 , H&H:13/45 , PLT : 288 , sodium 129 , serum potassium: 6.4 , BUN serum creatinine: 41 , CR : 2.2 , serum bicarb: 6 , AG : 47 Random blood sugar: > 600 TSH: 0.17 ABG: pH 7.08, PCO2:16 , PO2:116 Review of Systems General: Reports: 10 or more systems reviewed and unremarkable except in HPI and below Const: Denies: fever(s), chills, body aches, change in appetite or diaphoresis Card: Denies: palpitations, edema, swelling of feet/ankles, dyspnea on exertion, orthopnea or leg pain with exertion Resp: Denies: dyspnea, productive cough, wheezing or pain on inspiration GI: Denies: abdominal pain, nausea, vomiting, diarrhea or constipation : Denies: flank pain Musc: Denies: back pain, extremity pain or extremity swelling Neuro: Denies: headache(s), difficulty walking or confusion Medications/Allergies Home Medications Medication Instructions Recorded Confirmed Last Taken Type escitalopram oxalate 10 mg tablet 10 mg PO DAILY 04/01/20 04/11/22 03/31/20 History flash glucose sensor (FreeStyle #3 ea 02/23/21 04/11/22 Unknown Rx Adwoa 14 Day Sensor kit) insulin lispro 100 unit/mL 4 unit SUBCUT TID 03/03/21 04/11/22 Unknown History subcutaneous pen (Humalog KwikPen (U-100) Insulin) insulin lispro 100 unit/mL See Rx Instructions .Route 06/24/21 04/11/22 Unknown Rx subcutaneous solution (Humalog .COMPLEX #50 mL U-100 Insulin) levothyroxine 100 mcg tablet 100 mcg PO DAILY #90 tabs 08/02/21 04/11/22 Unknown Rx paroxetine HCl 20 mg tablet 20 mg PO DAILY #30 tabs 09/29/21 04/11/22 Unknown Rx linagliptin 5 mg tablet 5 mg PO DAILY #90 tabs 12/13/21 04/11/22 Unknown Rx cholecalciferol (vitamin D3) 10 10 mcg PO DAILY 03/08/22 04/11/22 Unknown His tory mcg (400 unit) capsule fludrocortisone 0.1 mg tablet 0.1 mg PO DAILY #90 tabs 03/08/22 04/11/22 Unknown Rx lactobacillus combination no.9 4 4,000 mmu cells PO DAILY 03/08/22 04/11/22 Un known History billion cell capsule (Adult 50 Plus Probiotic) mesalamine 0.375 gram 1.5 g PO DAILY 03/08/22 04/11/22 Unknown History capsule,extended release 24 hr ampicillin 500 mg capsule 500 mg PO QID 10 days #40 caps 03/15/22 03/15/22 Unknown Rx hydroxyzine HCl 25 mg tablet 25 mg PO BID PRN itching #60 tabs 03/20/22 04/11/22 Unknown Rx nirmatrelvir 300 mg (150 mg x See Rx Instructions PO .COMPLEX 04/17/22 Unknown Rx 2)-ritonavir 100 mg tablet (EUA) #30 tabs (Paxlovid) Allergies Allergy/AdvReac Type Severity Reaction Status Date / Time No Known Allergies Allergy Verified 04/18/22 20:20 PFSH Acute PFSH: Medical History Diabetes type 2, uncontrolled Graves disease Orthostatic hypotension Ulcerative colitis Surgical History History of partial hysterectomy History of tubal ligation Family History Mother Atrial fibrillation Hypertension Family/Other Myocardial infarct Diabetes Father CAD (coronary artery disease) with stents Other Cancer Social History Smoking and tobacco status: never smoked Second hand smoke exposure: No Vitals/I&O/Wt Last Vital Signs Temp 98.1 F 04/18/22 20:20 Pulse 107 H 04/18/22 20:20 Resp 19 H 04/18/22 20:20 BP 119/58 04/18/22 20:20 Pulse Ox 100 04/18/22 20:20 O2 Del Method 04/18/22 20:20 04/18/22 04/18/22 04/18/22 06:59 14:59 22:59 Intake Total 1000 / 1000 Balance 1000 / 1000 Weight last 48 hrs Weight 67.585 kg Physical Exam Narrative: Alert awake, currently she is preferring to sleep Resp: COMMON NORMALS: clear to auscultation bilaterally EFFORT & INSPECTION: Yes symmetric chest movement AUSCULTATION: clear to auscultation bilaterally Cardio: COMMON NORMALS: regular rate, regular rhythm, S1 normal heart sound present, S2 normal heart sound present, No gallops present (Cardio), No murmurs present (Cardio), No rub (Cardio) and Peripheral pulses 2+ throughout RATE: regular rate RHYTHM: regular rhythm HEART SOUNDS: S1 normal heart sound present and S2 normal heart sound present PERIPHERAL PULSES: Peripheral pulses 2+ throughout GI: COMMON NORMALS: Normal to inspection, nondistended, normoactive bowel sounds present, Soft to palpation, non-tender, No hepatosplenomegaly present and no masses AUSCULTATION: Yes normoactive bowel sounds PALPATION: Yes Soft to palpation and Yes No hepatosplenomegaly present RECTAL EXAM: deferred Extremity: COMMON NORMALS: no clubbing, cyanosis or edema and no pedal edema Data : 04/19/22 01:25 04/19/22 01:25 A&P Assessment and plan (1) DKA (diabetic ketoacidosis): (2) AMS (altered mental status): (3) Diabetes type 2, uncontrolled: Qualifiers: Glycemic state: with hyperglycemia Qualified Code(s): E11.65 - Type 2 diabetes mellitus with hyperglycemia (4) Hypothyroidism: Qualifiers: Hypothyroidism type: acquired Qualified Code(s): E03.9 - Hypothyroidism, unspecified (5) Hyperkalemia: Plan 61 year old female past medical history of diabetes, Graves', ulcerative colitis, came in with chief complaint of lethargy, generalized weakness, confusion, started since yesterday but got worst today. Assessment: DKA Increased anion gap metabolic acidosis secondary to DKA Altered mental status secondary to DKA COVID-19 Hyperkalemia Pseudohyponatremia UTI Prerenal RACHEL secondary to dehydration History of Graves' History of ulcerative colitis. Plan: Currently on DKA protocol, monitor BMP every 4 hours, monitor fingerstick glucose, every hour Continue LR 100 cc an hour For now we will avoid bicarb, as with correction of DKA, with insulin and IV fluids, acidosis will improve. Follow repeat TSH free T4 free T3 Follow urine culture On Rocephin Currently patient is saturating well on room air, will avoid conventional COVID- 19 medications Prerenal RACHEL: Monitor intake output charting: Monitor BMP: Avoid nephrotoxic's CODE STATUS: Full code DVT prophylaxis: On heparin Attestations Medical Necessity Statement*: Patient is in hospital for management of DKA. Anticipated length of stay greater than 2 midnights. Time Spent in Patient Care: Greater than 35 minutes (>than 50% of time spent in counselling and/or direct pt care on unit) . Coding Level of Care Code Acute Land Surveying Survey Worker for Chg Fwd Exam Expanded Problem Focused Diagnoses DKA (diabetic ketoacidosis) E11.10 AMS (altered mental status) R41.82 Diabetes type 2, uncontrolled E11.65 Glycemic state: with hyperglycemia Hypothyroidism E03.9 Hypothyroidism type: acquired Hyperkalemia E87.5
[2022-04-18 22:46] LABS: Urine Appearance SL Hazy (CLEAR)
[2022-04-18 22:47] LABS: Add Urine Microscopic? YES; Blood Urine Trace (Negative)
[2022-04-18 22:48] LABS: Glucose Point of Care > 600 mg/dL (70-110)
[2022-04-18 22:57] LABS: RBC Urine 0-4 /hpf (0-2); WBC Urine 15-25 /hpf (0-5)
[2022-04-18 22:58] LABS: Add Urine Culture? No; Bacteria Urine 3+ /hpf; Squamous Epithelial Cell Urine TOO NUMEROUS TO CNT /hpf (0-5)
[2022-04-18 23:05] LABS: Glucose Point of Care > 600 mg/dL (70-110)
[2022-04-18 23:17] LABS: Troponin 5 2HR 15.54 ng/L (0-10)
[2022-04-18 23:18] LABS: Troponin 5 2HR Delta 3.54 ABS# (0-10)
[2022-04-18 23:23] LABS: Anion Gap 44.3 (5-19); Blood Urea Nitrogen 36 mg/dL (8-23); Calcium 9.4 mg/dL (8.5-10.5); Chloride 88 mmol/L (98-107); Glomerular Filtration Rate 21.6 mL/min (90-130); Potassium 4.3 mmol/L (3.5-5.1); Sodium 133 mmol/L (136-145)
[2022-04-18 23:32] LABS: Osmolality Calculated 324 mOsm/kg (285-295)
[2022-04-18 23:39] LABS: Carbon Dioxide 5 mmol/L (22-29)
[2022-04-18 23:41] LABS: Glucose 817 mg/dL (65-115)
[2022-04-18] MEDS: heparin 5,000 unit/mL INJ 1 mL 5000 UNIT SUBCUT (23:54)
[2022-04-18] MEDS: cefTRIAXone 1,000 MG in sodium chloride 0.9% (plus) 50 ML 100 MG IV (23:54)
[2022-04-19] VITALS (49 sets, daily range): BP systolic 85–162; BP diastolic 59–93; PULSE 84–111; RESP 10–20; TEMP 36.4–36.9; O2SAT 96–100
[2022-04-19] MEDS: lactated ringers 1,000 ML 100 ML IV (00:07)
[2022-04-19 01:39] LABS: Basophils % 0.1 %; Hemoglobin 13.3 g/dL (11.5-15.3); Lymphocytes # 1.5 10^3/uL (0.8-4.8); Lymphocytes % 11.6 %; Mean Corpuscular HGB Conc 32.4 g/dL (30.0-36.0); Mean Corpuscular Hemoglobin 27.8 pg (28.0-34.0); Mean Corpuscular Volume 85.8 fl (81-99); Monocytes # 0.8 10^3/uL (0.2-0.9); Neutrophils # 10.73 10^3/uL (1.8-7.7); Neutrophils % 81.2 %; Nucleated Red Blood Cells % 0 %; Platelet Count 271 10^3/cmm (130-400); Red Blood Count 4.78 10^6/uL (4.1-5.3); Red Cell Distribution Width 11.9 % (12.1-15.1); White Blood Count 13.2 10^3/uL (4.0-10.0)
[2022-04-19 02:04] LABS: Glucose 481 mg/dL (65-115)
[2022-04-19 02:05] LABS: Alanine Aminotransferase 13 U/L (0-33); Albumin Level 3.9 g/dL (3.5-5.2); Alkaline Phosphatase 90 U/L (35-105); Anion Gap 34.4 (5-19); Aspartate Amino Transferase 13 U/L (0-32); Blood Urea Nitrogen 32 mg/dL (8-23); Carbon Dioxide 10 mmol/L (22-29); Chloride 99 mmol/L (98-107); Globulin 2.9 g/dL (1.3-4.6); Glomerular Filtration Rate 25.3 mL/min (90-130); Glucose 476 mg/dL (65-115); Magnesium 2.3 mg/dL (1.7-2.3); Osmolality Calculated 318 mOsm/kg (285-295); Potassium 3.4 mmol/L (3.5-5.1); Sodium 140 mmol/L (136-145); Total Bilirubin 0.2 mg/dL (0.15-1.2); Total Protein 6.8 g/dL (6.6-8.7)
[2022-04-19 02:12] LABS: T3 Free 1.1 PG/ML (2.0-4.4)
[2022-04-19 02:24] LABS: Troponin 5 6HR 17.19 ng/L (0-10)
[2022-04-19 02:33] LABS: Troponin 5 6HR Delta 5.19 ng/L (0-12)
[2022-04-19] MEDS: lidocaine 1% 5 ML in potassium chloride premix 100 ML 25 ML IV (03:02)
--- NOTE | 2022-04-19 04:35 | ECG_ITS ---
[facility] Test Date: 2022-04-19 Pat Name: Lilo Chong Department: Room: ICU11 Gender: Female Grab Operator: : 1960 Requested By: Rema Bennett Order Number: [id number] Rich MD: Vamshi Smith M.D. Measurements Intervals [place] Rate: 96 P: 72 AL: 131 QRS: -12 QRSD: 93 T: 76 QT: 355 QTc: 449 Interpretive Statements SINUS RHYTHM POSSIBLE LEFT ATRIAL ENLARGEMENT [-0.1mV P-WAVE IN V1/V2] NONSPECIFIC T-WAVE ABNORMALITY Compared to ECG 04/18/2022 22:41:47 T-wave abnormality now present Sinus arrhythmia no longer present Short AL interval no longer present Myocardial infarct finding no longer present Electronically Signed On 04-19-2022 14:12:54 CDT by Vamshi Smith M.D. [id number]
--- NOTE | 2022-04-19 07:05 | PC.NURSE ---
Bedsdie report complete with DONNA Wu.
[2022-04-19 07:56] LABS: Glucose Point of Care 580 mg/dL (70-110)
[2022-04-19 07:56] LABS: Anion Gap 16.2 (5-19); Blood Urea Nitrogen 26 mg/dL (8-23); Calcium 9.4 mg/dL (8.5-10.5); Carbon Dioxide 23 mmol/L (22-29); Chloride 108 mmol/L (98-107); Glomerular Filtration Rate 41.6 mL/min (90-130); Glucose 142 mg/dL (65-115); Osmolality Calculated 303 mOsm/kg (285-295); Potassium 4.2 mmol/L (3.5-5.1); Sodium 143 mmol/L (136-145)
[2022-04-19 07:56] LABS: Glucose Point of Care 384 mg/dL (70-110)
[2022-04-19 07:56] LABS: Glucose Point of Care 393 mg/dL (70-110)
[2022-04-19 07:56] LABS: Glucose Point of Care 238 mg/dL (70-110)
[2022-04-19 07:56] LABS: Glucose Point of Care 174 mg/dL (70-110)
[2022-04-19 07:56] LABS: Glucose Point of Care 286 mg/dL (70-110)
[2022-04-19] MEDS: dextrose 5%-ns + KCl 20 20 MEQ/1,000 ML BAG 100 MEQ IV (07:59)
--- NOTE | 2022-04-19 09:11 | PC.PHAR ---
pts brought in medication bottles-pt didnt bring in med bottle of mesalamine 0.375g take 4 caps daily pt states still taking - [facility] on december 22 2021 the pt called and stated this medication was dced due to not being able to swallow-pts states the pt took one dose of paxlovid and states it made her sicker-notes are made in the pharmacy comments
[2022-04-19 09:14] LABS: Glucose Point of Care 97 mg/dL (70-110)
[2022-04-19 09:14] LABS: Glucose Point of Care 82 mg/dL (70-110)
[2022-04-19] MEDS: PARoxetine 20 mg Tablet PO (09:23)
[2022-04-19] MEDS: levothyroxine 100 mcg Tablet PO (09:23)
[2022-04-19 09:48] LABS: Glucose Point of Care 71 mg/dL (70-110)
[2022-04-19] MEDS: heparin 5,000 unit/mL INJ 1 mL 5000 UNIT SUBCUT ×2 (10:23→22:32)
[2022-04-19 10:35] LABS: Glucose Point of Care 147 mg/dL (70-110)
[2022-04-19 11:06] LABS: Anion Gap 15.7 (5-19); Blood Urea Nitrogen 28 mg/dL (8-23); Calcium 9.5 mg/dL (8.5-10.5); Carbon Dioxide 23 mmol/L (22-29); Chloride 107 mmol/L (98-107); Glomerular Filtration Rate 56.4 mL/min (90-130); Glucose 152 mg/dL (65-115); Osmolality Calculated 300 mOsm/kg (285-295); Potassium 4.7 mmol/L (3.5-5.1); Sodium 141 mmol/L (136-145)
[2022-04-19 12:03] LABS: Glucose Point of Care 157 mg/dL (70-110)
--- NOTE | 2022-04-19 13:41 | P.PN_ITS ---
Subjective Subjective: Seen this morning. Patient appears as patient appears lethargic. Anion gap closed. 15 now. Vitals/I&O/Wt Last Vital Signs Temp 98.2 F 04/19/22 04:00 Pulse 84 04/19/22 08:00 Resp 10 L 04/19/22 06:00 BP 127/69 04/19/22 06:00 Pulse Ox 99 04/19/22 08:00 O2 Del Method 04/19/22 08:00 04/18/22 04/19/22 04/19/22 22:59 06:59 14:59 Intake Total 1000 / 1000 850.101 / 1915.781 2082 Output Total 350 / 350 Balance 1000 / 1000 500.101 / 2418.090 7497 Weight last 48 hrs Weight 67.585 kg Physical Exam Narrative: Awake, alert, oriented but sleepy and lethargic Resp: COMMON NORMALS: clear to auscultation bilaterally EFFORT & INSPECTION: Yes symmetric chest movement AUSCULTATION: clear to auscultation bilaterally Cardio: COMMON NORMALS: regular rate, regular rhythm, S1 normal heart sound present, S2 normal heart sound present, No gallops present (Cardio), No murmurs present (Cardio), No rub (Cardio) and Peripheral pulses 2+ throughout RATE: regular rate RHYTHM: regular rhythm HEART SOUNDS: S1 normal heart sound present and S2 normal heart sound present PERIPHERAL PULSES: Peripheral pulses 2+ throughout GI: COMMON NORMALS: Normal to inspection, nondistended, normoactive bowel sounds present, Soft to palpation, non-tender and no masses AUSCULTATION: Yes normoactive bowel sounds PALPATION: Yes Soft to palpation RECTAL EXAM: d eferred Extremity: COMMON NORMALS: no clubbing, cyanosis or edema and no pedal edema Data : 04/19/22 01:25 04/19/22 10:28 A&P Assessment and plan (1) DKA (diabetic ketoacidosis): (2) AMS (altered mental status): (3) Diabetes type 2, uncontrolled: Qualifiers: Glycemic state: with hyperglycemia Qualified Code(s): E11.65 - Type 2 diabetes mellitus with hyperglycemia (4) Hypothyroidism: Qualifiers: Hypothyroidism type: acquired Qualified Code(s): E03.9 - Hypot hyroidism, unspecified (5) Hyperkalemia: Plan 61 year old female past medical history of diabetes, Graves', ulcerative colitis, came in with chief complaint of lethargy, generalized weakness, confusion, started since yesterday but got worst today. Assessment: DKA Increased anion gap metabolic acidosis secondary to DKA Altered mental status secondary to DKA COVID-19 Hyperkalemia Pseudohyponatremia UTI Prerenal RACHEL secondary to dehydration History of Graves' History of ulcerative colitis. Plan: Lantus 5 units BID Low intensity SSI once pt starts to eat Start clear liquid, consistent carbs and advance as tolerated. continue rocephin Took paxlovid outpatient. Not on O2 at this time. Follow repeat TSH free T4 free T3 Follow urine culture Continue ceftriaxone Currently patient is saturating well on room air, will avoid conventional COVID- 19 medications Prerenal RACHEL: Monitor intake output charting: Cr 1.0. Improved today. Continue fluids CODE STATUS: Full code DVT prophylaxis: On heparin Attestations Medical Necessity Statement*: Continue to monitor in ICU today Critical Care Time: The high probability of a clinically significant, sudden or life threatening deterioration of the patient's [] system(s) required my full and direct attention, intervention and personal management. The critical care time is as shown. This time is in addition to time spent performing any reported procedures but includes the following: [x] Data and vital sign review and interpretation [x] Patient assessment, examination and intervention [x] Documentation [x] Medication orders and management Critical Care Time (min): 30 Coding Level of Care Code Acute Record Clerk for [facility] Fwd Diagnoses DKA (diabetic ketoacidosis) E11.10 AMS (altered mental status) R41.82 Diabetes type 2, uncontrolled E11.65 Glycemic state: with hyperglycemia Hypothyroidism E03.9 Hypothyroidism type: acquired Hyperkalemia E87.5
[2022-04-19 13:57] LABS: Glucose Point of Care 107 mg/dL (70-110)
--- NOTE | 2022-04-19 14:32 | PC.CHAP ---
Pastoral Care Encounter/Spiritual Assessment Type of Contact [] Declined candle pourer visit [] Patient/Family/Request visit [] Outpatient visit [] Follow-up visit [] Physician referral [] Code/Alert [] Routine visit [] Staff referral [] Actively dying [] Patient sleeping [] Family support [] [] Out of room [] Palliative care [] [] Receiving care in room [] Pre-surgical visit [] Trauma [] Long length of stay [x] ICU visit [] Other: Relational/Emotional Strength [] Patient feels connected with others/family/visitors/staff [] Distress [] Loneliness/isolation [] Abandonment Spirituality of Patient [] Person of Kareen [] Attends Mormonism of their Kareen [] Believes in Prayer [] Reads Bible or Bahai materials [] There are Spiritual issues to be addressed Embroidery Finisher Interventions [x] Prayer [] Active listening [] Non-anxious presence [] Spiritual/emotional support [] Crisis/trauma care [] Spiritual counseling [] Bereavement support [] Provided bereavement packet [] Provided Bible/devotional materials [] Provided toy/stuffed animal, coloring book to patient or family member [] Provided Communion [] Anointing/Phenix [] Salvation [] Completed spiritual assessment [] Other: Impact on Illness or Injury [] Angry [] Fearful [] Anxious [] Often cries [] Exhaustion [] Unable to work [] Unable to attend orthodox [] Unable to walk/stand [] Unable to read [] Unable to drive [] Unable to eat/drink [] Unable to sleep [] Unable to be with family [] Patient intubated [] Other: Summary Time spent with patient
[2022-04-19] MEDS: insulin glargine 100 units/1 mL 5 UNIT SUBCUT ×2 (14:46→18:22)
--- NOTE | 2022-04-19 15:00 | PC.NURSE ---
Pt up to [facility]. While emptying bladder pt went into asymptomatic SVT, per monitor. This nurse requested pt to cough. Pt coughed once and converted. Pt denies any dizziness or other symptoms.
[2022-04-19] MEDS: insulin lispro 100 unit/1 mL SUBCUT ×2 (18:21→20:16)
[2022-04-19 18:33] LABS: Glucose Point of Care 275 mg/dL (70-110)
[2022-04-19 19:22] LABS: Anion Gap 18.7 (5-19); Blood Urea Nitrogen 26 mg/dL (8-23); Calcium 9.2 mg/dL (8.5-10.5); Carbon Dioxide 18 mmol/L (22-29); Chloride 104 mmol/L (98-107); Glomerular Filtration Rate 63.7 mL/min (90-130); Glucose 382 mg/dL (65-115); Osmolality Calculated 303 mOsm/kg (285-295); Potassium 4.7 mmol/L (3.5-5.1); Sodium 136 mmol/L (136-145)
[2022-04-19 19:54] LABS: Glucose Point of Care 419 mg/dL (70-110)
[2022-04-19 19:54] LABS: Glucose Point of Care 348 mg/dL (70-110)
[2022-04-19] MEDS: sodium chloride 0.9% 1,000 ML 150 ML IV (20:16)
--- NOTE | 2022-04-19 20:42 | PC.NURSE ---
Shift Note: Pt resting bed most of day shift. She attempted to use bedpan once, unsuccessful. 2-3 hours later she was able to use BSC, SVT started then she converted again ( see previous note). HEr insulin gtt was stopped at 1435. She was started on Lantus 5 units BID and sliding scale. SHe has been very thirsty, preferring water. She has complaint of throat pain, Per her family this pain in her throat started with her Paxlovid treatment. SHe is much more alert and responsive at the end of shift. Frequent safety and comfort rounds continue. Orders and/or nursing care completed as indicated. Patient monitored for response to intervention and treatment(s). Education provided includes Levothryoid med,Lantus and regular insulin GI soft diet , progress and plan of care. . Patient and/or accounts receivable representative verbaized understanding of plan of care and insulins. Will continue to monitor.
[2022-04-19 21:45] LABS: Anion Gap 13.3 (5-19); Blood Urea Nitrogen 22 mg/dL (8-23); Calcium 9.2 mg/dL (8.5-10.5); Carbon Dioxide 21 mmol/L (22-29); Chloride 107 mmol/L (98-107); Glomerular Filtration Rate 56.4 mL/min (90-130); Glucose 313 mg/dL (65-115); Osmolality Calculated 299 mOsm/kg (285-295); Potassium 4.3 mmol/L (3.5-5.1); Sodium 137 mmol/L (136-145)
[2022-04-19] MEDS: cefTRIAXone 1,000 MG in sodium chloride 0.9% (plus) 50 ML 100 MG IV (22:32)
[2022-04-20] VITALS (22 sets, daily range): BP systolic 121–152; BP diastolic 63–84; PULSE 67–100; RESP 12–19; TEMP 36.8–37.1; O2SAT 95–99
[2022-04-20 04:06] LABS: Basophils % 0.2 %; Hematocrit 33.2 % (37.0-47.0); Lymphocytes # 1.9 10^3/uL (0.8-4.8); Lymphocytes % 10.2 %; Mean Corpuscular HGB Conc 33.1 g/dL (30.0-36.0); Mean Corpuscular Hemoglobin 28.1 pg (28.0-34.0); Mean Corpuscular Volume 84.9 fl (81-99); Mean Platelet Volume 10.5 fL (7.4-10.4); Monocytes # 1.3 10^3/uL (0.2-0.9); Monocytes % 6.8 %; Neutrophils # 15.36 10^3/uL (1.8-7.7); Neutrophils % 82.2 %; Nucleated Red Blood Cells % 0 %; Platelet Count 230 10^3/cmm (130-400); Red Blood Count 3.91 10^6/uL (4.1-5.3); Red Cell Distribution Width 12.8 % (12.1-15.1); White Blood Count 18.7 10^3/uL (4.0-10.0)
[2022-04-20 06:09] LABS: Alanine Aminotransferase 11 U/L (0-33); Albumin Level 3.3 g/dL (3.5-5.2); Alkaline Phosphatase 68 U/L (35-105); Blood Urea Nitrogen 20 mg/dL (8-23); Carbon Dioxide 14 mmol/L (22-29); Chloride 105 mmol/L (98-107); Globulin 1.8 g/dL (1.3-4.6); Glomerular Filtration Rate 72.9 mL/min (90-130); Glucose 363 mg/dL (65-115); Osmolality Calculated 297 mOsm/kg (285-295); Phosphorus 1.5 mg/dL (2.5-4.5); Sodium 135 mmol/L (136-145); Total Bilirubin 0.4 mg/dL (0.15-1.2); Total Protein 5.1 g/dL (6.6-8.7)
[2022-04-20 06:16] LABS: Anion Gap 20.9 (5-19)
[2022-04-20 06:17] LABS: Aspartate Amino Transferase 20 U/L (0-32); Potassium 4.9 mmol/L (3.5-5.1)
[2022-04-20 07:08] LABS: Glucose Point of Care 354 mg/dL (70-110)
[2022-04-20] MEDS: insulin glargine 100 units/1 mL 5 UNIT SUBCUT (08:07)
[2022-04-20] MEDS: insulin lispro 100 unit/1 mL SUBCUT ×4 (08:07→16:57)
[2022-04-20] MEDS: PARoxetine 20 mg Tablet PO (08:07)
[2022-04-20] MEDS: levothyroxine 100 mcg Tablet PO (08:07)
[2022-04-20] MEDS: heparin 5,000 unit/mL INJ 1 mL 5000 UNIT SUBCUT ×2 (10:48→21:39)
[2022-04-20] MEDS: insulin glargine 100 units/1 mL 3 UNIT SUBCUT (10:48)
[2022-04-20] MEDS: sodium chloride 0.9% 1,000 ML 150 ML IV ×2 (10:49→21:39)
[2022-04-20 10:55] LABS: Glucose Point of Care 316 mg/dL (70-110)
[2022-04-20 11:19] LABS: Anion Gap 15.9 (5-19); Blood Urea Nitrogen 18 mg/dL (8-23); Carbon Dioxide 19 mmol/L (22-29); Chloride 105 mmol/L (98-107); Glomerular Filtration Rate 63.7 mL/min (90-130); Glucose 331 mg/dL (65-115); Osmolality Calculated 297 mOsm/kg (285-295); Potassium 3.9 mmol/L (3.5-5.1); Sodium 136 mmol/L (136-145)
--- NOTE | 2022-04-20 11:54 | PC.CHAP ---
Pastoral Care Encounter/Spiritual Assessment Type of Contact [] Declined material manager visit [] Patient/Family/Request visit [] Outpatient visit [] Follow-up visit [] Physician referral [] Code/Alert [x] Routine visit [] Staff referral [] Actively dying [] Patient sleeping [] Family support [] [] Out of room [] Palliative care [] [] Receiving care in room [] Pre-surgical visit [] Trauma [] Long length of stay [x] ICU visit [] Other: Relational/Emotional Strength [] Patient feels connected with others/family/visitors/staff [] Distress [] Loneliness/isolation [] Abandonment Spirituality of Patient [] Person of [place] [] Attends Methodist of their [place] [] Believes in Prayer [] Reads Bible or Jain materials [] There are Spiritual issues to be addressed Window Repairer Interventions [x] Prayer [] Active listening [] Non-anxious presence [] Spiritual/emotional support [] Crisis/trauma care [] Spiritual counseling [] Bereavement support [] Provided bereavement packet [] Provided Bible/devotional materials [] Provided toy/stuffed animal, coloring book to patient or family member [] Provided Communion [] Anointing/[place] [] Salvation [x] Completed spiritual assessment [] Other: Impact on Illness or Injury [] Angry [] Fearful [] Anxious [] Often cries [] Exhaustion [] Unable to work [] Unable to attend methodist [] Unable to walk/stand [] Unable to read [] Unable to drive [] Unable to eat/drink [] Unable to sleep [] Unable to be with family [] Patient intubated [] Other: Summary Time spent with patient
[2022-04-20] MEDS: cetylpyridinium Lozenge 1 EACH MUCOUS MEM ×2 (13:03→18:25)
--- NOTE | 2022-04-20 14:01 | P.PN_ITS ---
Subjective Subjective: seen this am she feels better. sugars are high. 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 Vitals/I&O/Wt Last Vital Signs Temp 98.2 F 04/20/22 03:17 Pulse 100 04/20/22 12:00 Resp 14 04/20/22 12:00 BP 135/63 04/20/22 12:00 Pulse Ox 96 04/20/22 12:00 O2 Del Method 04/19/22 20:00 04/19/22 04/20/22 04/20/22 22:59 06:59 14:59 Intake Total 1200 / 3767.928 1250 / 5017.928 360 / 360 Output Total 350 / 850 300 / 1150 550 / 550 Balance 850 / 2917.928 950 / 3867.928 -190 / -190 Weight last 48 hrs Weight 67.585 kg Physical Exam Narrative: Awake, alert, oriented but sleepy and lethargic Resp: COMMON NORMALS: clear to auscultation bilaterally EFFORT & INSPE CTION: Yes symmetric chest movement AUSCULTATION: clear to auscultation bilaterally Cardio: COMMON NORMALS: regular rate, regular rhythm, S1 normal heart sound present, S2 normal heart sound present, No gallops present (Cardio), No murmurs present (Cardio), No rub (Cardio) and Peripheral pulses 2+ throughout RATE: regular rate RHYTHM: regular rhythm HEART SOUNDS: S1 normal heart sound present and S2 normal heart sound present PERIPHERAL PULSES: Peripheral pulses 2+ throughout GI: COMMON NORMALS: Normal to inspection, nondistended, normoactive bowel sounds present, Soft to palpation, non-tender and no masses AUSCULTATION: Yes normoactive bowel sounds PALPATION: Yes Soft to palpation RECTAL EXAM: deferred Extremity: COMMON NORMALS: no clubbing, cyanosis or edema and no pedal edema Data : 04/20/22 03:52 04/20/22 10:49 A&P Assessment and plan (1) DKA (diabetic ketoacidosis): (2) AMS (altered mental status): (3) Diabetes type 2, uncontrolled: Qualifiers: Glycemic state: with hyperglycemia Qualified Code(s): E11.65 - Type 2 diabetes mellitus with hyperglycemia (4) Hypothyroidism: Qualifiers: Hypothyroidism type: acquired Qualified Code(s): E03.9 - Hypothyroidism, unspecified (5) Hyperkalemia: Plan 61 year old female past medical history of diabetes, Graves', ulcerative c olitis, came in with chief complaint of lethargy, generalized weakness, confusion, started since yesterday but got worst today. Assessment: DKA Increased anion gap metabolic acidosis secondary to DKA Altered mental status secondary to DKA COVID-19 Hyperkalemia Pseudohyponatremia UTI Prerenal RACHEL secondary to dehydration History of Graves' History of ulcerative colitis. Plan: Lantus 8 units BID Moderate intensity SSI , will add 3 units premeal as well consistent carbs diet continue rocephin Took paxlovid outpatient. Not on O2 at this time. Follow urine culture Continue ceftriaxone Currently patient is saturating well on room air, will avoid conventional COVID- 19 medications Prerenal RACHEL: resolved. Continue fluids pt to dc on lantus and lispro. talked with endo. pt not to start insulin pump till seen by endo. pt understands will check neck CT sacrum xray CODE STATUS: Full code DVT prophylaxis: On heparin May transfer to floor today Attestations Medical Necessity Statement*: Continue to monitor in hospital till BG stablizes Critical Care Time: The high probability of a clinically significant, sudden or life threatening deterioration of the patient's [] system(s) required my full and direct attention, intervention and personal management. The critical care time is as shown. This time is in addition to time spent performing any reported procedures but includes the following: [x] Data and vital sign review and interpretation [x] Patient assessment, examination and intervention [x] Documentation [x] Medication orders and management Critical Care Time (min): 30 Coding Level of Care Code Acute Paper Machine Backtender for g Fwd Diagnoses DKA (diabetic ketoacidosis) E11.10 AMS (altered mental status) R41.82 Diabetes type 2, uncontrolled E11.65 Glycemic state: with hyperglycemia Hypothyroidism E03.9 Hypothyroidism type: acquired Hyperkalemia E87.5
--- NOTE | 2022-04-20 14:08 | XRR_ITS ---
PROCEDURE INFORMATION: Exam: XR Sacrum and Coccyx, 2 or More Views Exam date and time: 04/20/2022 5:30 PM Age: 61 years old Clinical indication: Pain in coccyx area; Additional info: Fall, pain TECHNIQUE: Imaging protocol: XR of the sacrum and coccyx, 2 or more views. COMPARISON: CT Abdomen/Pelvis [facility] [id number] 07/06/2017 10:17 AM FINDINGS: Bones/joints: Normal. No acute fracture. Soft tissues: Normal. XR/XR sacrum coccyx min 2V [id number] IMPRESSION: No acute findings.
--- NOTE | 2022-04-20 14:08 | CTR_ITS ---
PROCEDURE INFORMATION: Exam: CT Cervical Spine Without Contrast Exam date and time: 04/20/2022 5:23 PM Age: 61 years old Clinical indication: Injury or trauma; Fall; Blunt trauma; Additional info: Fall, neck pain, whiplash TECHNIQUE: Imaging protocol: Computed tomography of the cervical spine without contrast. Radiation optimization: All CT scans at this facility use at least one of these dose optimization techniques: automated exposure control; mA and/or kV adjustment per patient size (includes targeted exams where dose is matched to clinical indication); or iterative reconstruction. COMPARISON: CT cervical spin wo con* [id number] 05/31/2016 6:44 PM RADIATION DOSE METRICS: Total DLP (mGy-cm): 178.67 FINDINGS: Bones/joints: No acute fracture. Normal alignment. No significant disc protrusion. No severe spinal canal stenosis. Lungs: Lung apices are normal. Soft tissues: Unremarkable. CT/CT cervical spin wo con* [id number] IMPRESSION: No acute findings.
[2022-04-20 16:13] LABS: Glucose Point of Care 243 mg/dL (70-110)
[2022-04-20] MEDS: phosphorus 250 mg Tablet PO ×2 (16:18→16:57)
--- NOTE | 2022-04-20 17:46 | PC.NURSE ---
Pt was taken to [facility] via wheelchair on room air. Tolerated well. All belongings with sister.
[2022-04-20] MEDS: pantoprazole DR 40 mg Tablet PO (18:25)
[2022-04-20 21:36] LABS: Glucose Point of Care 142 mg/dL (70-110)
[2022-04-20] MEDS: cefTRIAXone 1,000 MG in sodium chloride 0.9% (plus) 50 ML 100 MG IV (21:40)
[2022-04-21] VITALS (8 sets, daily range): BP systolic 129–161; BP diastolic 70–84; PULSE 59–71; RESP 16–20; TEMP 36.7–37; O2SAT 94–95
[2022-04-21 05:07] LABS: Basophils % 0.2 %; Eosinophils % 0.1 %; Hematocrit 32.4 % (37.0-47.0); Hemoglobin 10.8 g/dL (11.5-15.3); Lymphocytes # 2.4 10^3/uL (0.8-4.8); Lymphocytes % 19.8 %; Mean Corpuscular HGB Conc 33.3 g/dL (30.0-36.0); Mean Corpuscular Volume 83.9 fl (81-99); Monocytes # 0.7 10^3/uL (0.2-0.9); Monocytes % 5.8 %; Neutrophils # 9.06 10^3/uL (1.8-7.7); Neutrophils % 73.6 %; Nucleated Red Blood Cells % 0 %; Platelet Count 199 10^3/cmm (130-400); Red Blood Count 3.86 10^6/uL (4.1-5.3); White Blood Count 12.3 10^3/uL (4.0-10.0)
[2022-04-21] MEDS: aspirin 81 mg EC Tablet PO (05:29)
[2022-04-21 05:32] LABS: Alanine Aminotransferase 9 U/L (0-33); Alkaline Phosphatase 91 U/L (35-105); Aspartate Amino Transferase 20 U/L (0-32); Blood Urea Nitrogen 9 mg/dL (8-23); Calcium 8.4 mg/dL (8.5-10.5); Carbon Dioxide 23 mmol/L (22-29); Chloride 99 mmol/L (98-107); Glomerular Filtration Rate 101.6 mL/min (90-130); Glucose 309 mg/dL (65-115); Osmolality Calculated 286 mOsm/kg (285-295); Phosphorus 1.8 mg/dL (2.5-4.5); Sodium 133 mmol/L (136-145); Total Bilirubin 0.4 mg/dL (0.15-1.2)
[2022-04-21 06:16] LABS: Glucose Point of Care 309 mg/dL (70-110)
[2022-04-21] MEDS: insulin lispro 100 unit/1 mL SUBCUT ×6 (06:31→18:02)
[2022-04-21] MEDS: levothyroxine 100 mcg Tablet PO (08:15)
[2022-04-21] MEDS: phosphorus 250 mg Tablet PO ×2 (08:15→18:02)
[2022-04-21] MEDS: PARoxetine 20 mg Tablet PO (08:15)
[2022-04-21] MEDS: fludrocortisone 0.1 mg Tablet PO (08:16)
[2022-04-21] MEDS: sodium chloride 0.9% 1,000 ML 150 ML IV (08:17)
[2022-04-21] MEDS: insulin glargine 100 units/1 mL 8 UNIT SUBCUT (09:53)
[2022-04-21 11:03] LABS: Glucose Point of Care 169 mg/dL (70-110)
[2022-04-21] MEDS: heparin 5,000 unit/mL INJ 1 mL 5000 UNIT SUBCUT ×2 (12:19→21:44)
[2022-04-21] MEDS: ondansetron 2 mg/ML SDV 2 mL 4 MG IVP (12:23)
[2022-04-21] MEDS: pantoprazole DR 40 mg Tablet PO (12:33)
--- NOTE | 2022-04-21 13:36 | PM.PN ---
Subjective Subjective: Patient's morning blood sugars have been high blood pressure much better controlled at this time. CT cervical spine negative for any fractures. Neck feels better. States that sacral area is also better. However overall patient does not feel well. He states he feels really weak. Phosphorus low this a.m. 1.8. Vitals/I&O/Wt Last Vital Signs Temp 98.2 F 04/21/22 11:48 Pulse 69 04/21/22 11:48 Resp 16 04/21/22 11:48 BP 144/76 04/21/22 11:48 Pulse Ox 94 04/21/22 11:48 O2 Del Method 04/21/22 11:48 04/20/22 04/21/22 04/21/22 22:59 06:59 14:59 Intake Total 2935 / 3535 2300 / 5835 290 / 290 Output Total 550 / 1100 Balance 2385 / 2435 2300 / 4735 290 / 290 Physical Exam Narrative: Awake, alert, oriented but sleepy and lethargic Resp: COMMON NORMALS: clear to auscultation bilaterally EFFORT & INSPECTION: Yes symmetric chest movement AUSCULTATION: clear to auscultation bilaterally Cardio: COMMON NORMALS: regular rate, regular rhythm, S1 normal heart sound present, S2 normal heart sound present, No gallops present (Cardio), No murmurs present (Cardio), No rub (Cardio) and Peripheral pulses 2+ throughout RATE: regular rate RHYTHM: regular rhythm HEART SOUNDS: S1 normal heart sound present and S2 normal heart sound present PERIPHERAL PULSES: Peripheral pulses 2+ throughout GI: COMMON NORMALS: Normal to inspection, nondistended, normoactive bowel sounds present, Soft to palpation, non-tender and no masses AUSCULTATION: Yes normoactive bowel sounds PALPATION: Yes Soft to palpation RECTAL EXAM: deferred Extremity: COMMON NORMALS: no clubbing, cyanosis or edema and no pedal edema Data : 04/21/22 03:57 04/21/22 03:57 Micro: Microbiology 04/18/22 22:29 Urine Culture - Preliminary Urine,Voided A&P Assessment and plan (1) DKA (diabetic ketoacidosis): (2) AMS (altered mental status): (3) Diabetes type 2, uncontrolled: Qualifiers: Glycemic state: with hyperglycemia Qualified Code(s): E11.65 - Type 2 diabetes mellitus with hyperglycemia (4) Hypothyroidism: Qualifiers: Hypothyroidism type: acquired Qualified Code(s): E03.9 - Hypothyroidism, unspecified (5) Hyperkalemia: Plan 61 year old female past medical history of diabetes, Graves', ulcerative colitis, came in with chief complaint of lethargy, generalized weakness, confusion, started since yesterday but got worst today. Assessment: DKA Increased anion gap metabolic acidosis secondary to DKA Altered mental status secondary to DKA COVID-19 Hyperkalemia Pseudohyponatremia UTI Prerenal RACHEL secondary to dehydration History of Graves' History of ulcerative colitis. Plan: Lantus 10 units BID Moderate intensity SSI , will add 5 units premeal as well consistent carbs diet continue rocephin Took paxlovid outpatient. Not on O2 at this time. Follow urine culture Continue ceftriaxone Currently patient is saturating well on room air, will avoid conventional COVID-19 medications Prerenal RACHEL: resolved. Continue fluids pt to dc on lantus and lispro. talked with endo. pt not to start insulin pump till seen by endo. pt understands Sacrum x-ray okay, cervical CT spine okay ? Replete phosphorus ? Order physical therapy -Patient feels very weak. CODE STATUS: Full code DVT prophylaxis: On heparin Attestations Medical Necessity Statement*: Patient experiencing a lot of weakness. Electrolyte imbalance present. She will need to stay in the hospital for correction of electrolytes. Phosphorus still low. We will order physical therapy. Coding Level of Care Code Acute Procurement Inspector for [facility] Fwd Diagnoses DKA (diabetic ketoacidosis) E11.10 AMS (altered mental status) R41.82 Diabetes type 2, uncontrolled E11.65 Glycemic state: with hyperglycemia Hypothyroidism E03.9 Hypothyroidism type: acquired Hyperkalemia E87.5
[2022-04-21 17:02] LABS: Glucose Point of Care 157 mg/dL (70-110)
[2022-04-21 21:35] LABS: Glucose Point of Care 153 mg/dL (70-110)
[2022-04-21] MEDS: insulin glargine 100 units/1 mL 10 UNIT SUBCUT (21:43)
[2022-04-21] MEDS: cefTRIAXone 1,000 MG in sodium chloride 0.9% (plus) 50 ML 100 MG IV (21:44)
[2022-04-22] VITALS: BP 133/79; PULSE 65; RESP 14; TEMP 36.9; O2SAT 90
[2022-04-22 04:00] VITALS: BP 155/70; PULSE 69; RESP 17; TEMP 36.8; O2SAT 92
[2022-04-22 06:00] VITALS: PULSE 78
[2022-04-22 06:09] LABS: Phosphorus 2.7 mg/dL (2.5-4.5)
[2022-04-22 06:17] LABS: Glucose Point of Care 215 mg/dL (70-110)
[2022-04-22] MEDS: sodium chloride 0.9% 1,000 ML 75 ML IV (06:54)
[2022-04-22] MEDS: aspirin 81 mg EC Tablet PO (06:55)
[2022-04-22] MEDS: insulin lispro 100 unit/1 mL SUBCUT ×2 (06:55→08:44)
[2022-04-22 07:59] VITALS: BP 143/80; PULSE 63; RESP 16; TEMP 36.7; O2SAT 92
[2022-04-22 08:00] VITALS: BP 143/80; PULSE 63; RESP 16; TEMP 36.7
[2022-04-22] MEDS: pantoprazole DR 40 mg Tablet PO (08:43)
[2022-04-22] MEDS: insulin glargine 100 units/1 mL 10 UNIT SUBCUT (08:43)
[2022-04-22] MEDS: PARoxetine 20 mg Tablet PO (08:43)
[2022-04-22] MEDS: phosphorus 250 mg Tablet PO (08:43)
[2022-04-22] MEDS: fludrocortisone 0.1 mg Tablet PO (08:43)
[2022-04-22] MEDS: levothyroxine 100 mcg Tablet PO (08:43)
--- NOTE | 2022-04-22 10:02 | P.DS_ITS ---
Discharge Providers Date of Admission: 04/18/22 21:32 Date of Discharge: April 22, 2022 Attending Provider at Admission: Clif Mancuso MD Attending Provider at Discharge: Stacia Hyde MD Primary Care Provider: Jayme Joe MD Diagnoses at Discharge Discharge Diagnosis (1) DKA (diabetic ketoacidosis): Status: Acute (2) AMS (altered mental status): Status: Acute (3) Diabetes type 2, uncontrolled: Status: Acute Qualifiers: Glycemic state: with hyperglycemia Qualified Code(s): E11.65 - Type 2 diabetes mellitus with hyperglycemia (4) Hypothyroidism: Status: Acute Qualifiers: Hypothyroidism type: acquired Qualified Code(s): E03.9 - Hypothyr oidism, unspecified (5) Hyperkalemia: Status: Acute Reason for Visit Reason for Visit: COVID + HIGH BLOOD SUGAR Brief History: As per Dr. Mancuso Lilo Sandra Chong is a 61 year old female past medical history of diabetes, Graves', ulcerative colitis, came in with chief complaint of lethargy, generalized weakness, confusion, started since yesterday but got worst today.Patient was recently diagnosed with COVID on home testing on Sunday, and since then she has slowly worsened.? She also took 1 dose of Paxlovid at home, and felt bad after taking that and stopped it. Upon arrival in the ER she was worked up for above-mentioned complaint. Pertinent imaging studies: CT head without contrast:?No acute intracranial abnormality. X-ray chest: No significant findings. Pertinent labs: WBC:16 , H&H:13/45 , PLT : 288 , sodium 129 , serum potassium: 6.4 , BUN serum creatinine: 41 , CR : 2.2 , serum bicarb: 6 , AG : 47 Random blood sugar: > 600 TSH: 0.17 ABG: pH 7.08, PCO2:16 , PO2:116 Hospital Course Hospital Course Patient admitted for DKA. She also had a UTI. Patient uses insulin pump at home. Her director instrumentation recommended not to use insulin pump at discharge. Therefore she was set up with Lantus for long-acting, Premeal insulin and sliding scale. For UTI she was discharged on cefpodoxime for 3 more days to complete a 5 days course. RACHEL present on admission resolved during hospital stay. She also complained of neck pain and sacral pain since she had fallen before coming to the hospital due to severe dehydration secondary to nausea vomiting secondary to DKA. CT and x-ray were done for neck and sacrum and those studies were okay and did not show any acute fractures. Patient feeling well at time of discharge. present at bedside. She will follow-up with Dr. Levy as directed. Prescription for insulin was given to her. Patient was advised to follow low-carb diet and offered to see the dietitian in hospital. She declined at this time. She will be discharged home in stable condition. Physical Exam Narrative: Awake, alert, oriented but sleepy and lethargic Resp: COMMON NORMALS: clear to auscultation bilaterally EFFORT & INSPECTION: Yes symmetric chest movement AUSCULTATION: clear to auscultation bilaterally Cardio: COMMON NORMALS: regular rate, regular rhythm, S1 normal heart sound present, S2 normal heart sound present, No gallops present (Cardio), No murmurs present (Cardio), No rub (Cardio) and Peripheral pulses 2+ throughout RATE: regular rate RHYTHM: regular rhythm HEART SOUNDS: S1 normal heart sound present and S2 normal heart sound present PERIPHERAL PULSES: Peripheral pulses 2+ throughout GI: COMMON NORMALS: Normal to inspection, nondistended, normoactive bowel sounds present, Soft to palpation, non-tender and no masses AUSCULTATION: Yes normoactive bowel sounds PALPATION: Yes Soft to palpation RECTAL EXAM: deferred Extremity: COMMON NORMALS: no clubbing, cyanosis or edema and no pedal edema Discharge Data Studies Completed and Pending Completed Studies During Hospitalization Category Date Time Status CT cervical spin wo con* [id number] Routine Cat Scan 04/20/22 14:[address] head wo con* [id number] Stat Cat Scan 04/18/22 20:22 Completed XR chest 1V portable [id number] Stat Exams 04/18/22 20:22 Completed XR sacrum coccyx min 2V [id number] Routine Exams 04/20/22 14:08 Completed Pending at discharge Category Date Time Status Urine Culture Routine Lab 04/18/22 22:29 Results Radiology Impressions Chest X-Ray 04/18/22 20:22 IMPRESSION: No significant findings. Head CT 04/18/22 20:22 IMPRESSION: No acute intracranial abnormality. Cervical Spine CT 04/20/22 14:08 IMPRESSION: No acute findings. Sacrum and Coccyx X-Ray 04/20/22 14:08 IMPRESSION: No acute findings. Laboratory Results WBC 12.3 10^3/uL (4.0-10.0) H 04/21/22 03:57 RBC 3.86 10^6/uL (4.1-5.3) L 04/21/22 03:57 Hgb 10.8 g/dL (11.5-15.3) L 04/21/22 03:57 Hct 32.4 % (37.0-47.0) L 04/21/22 03:57 MCV 83.9 fl (81-99) 04/21/22 03:57 MCH 28.0 pg (28.0-34.0) 04/21/22 03:57 MCHC 33.3 g/dL (30.0-36.0) 04/21/22 03:57 RDW 13.0 % (12.1-15.1) 04/21/22 03:57 Plt Count 199 10^3/cmm (130-400) 04/21/22 03:57 MPV 11.0 fL (7.4-10.4) H 04/21/22 03:57 Neut % (Auto) 73.6 % 04/21/22 03:57 Lymph % (Auto) 19.8 % 04/21/22 03:57 [place] % (Auto) 5.8 % 04/21/22 03:57 Eos % (Auto) 0.1 % 04/21/22 03:57 Baso % (Auto) 0.2 % 04/21/22 03:57 Neut # (Auto) 9.06 10^3/uL (1.8-7.7) H 04/21/22 03:57 Lymph # (Auto) 2.4 10^3/uL (0.8-4.8) 04/21/22 03:57 [place] # (Auto) 0.7 10^3/uL (0.2-0.9) 04/21/22 03:57 Eos # (Auto) 0.0 10^3/uL (0.0-0.8) 04/21/22 03:57 Baso # (Auto) 0.0 10^3/uL (0.0-0.1) 04/21/22 03:57 Nucleated RBC % (auto) 0 % 04/21/22 03:57 Nucleated RBCs # 0.0 /100WBC 04/21/22 03:57 Specimen Type Arterial 04/18/22 20:43 Sample Site Radial, left 04/18/22 20:43 ABG pH 7.08 (7.35-7.45) L* 04/18/22 20:43 ABG pCO2 16.0 mmHg (35-45) L* 04/18/22 20:43 ABG pO2 116.0 mmHg (80.0-100.0) H 04/18/22 20:43 ABG HCO3 4.8 mmol/L (22-26) L 04/18/22 20:43 ABG Base Excess -23.1 mmol/L (-2.0-2.0) L 04/18/22 20:43 Eusebio Test Pos 04/18/22 20:43 Hematocrit 44.3 % (37-47) 04/18/22 20:43 O2 Delivery Device None 04/18/22 20:43 FiO2 21.0 % 04/18/22 20:43 Community Sports Coordinator ID [place] 04/18/22 20:43 Sodium 133 mmol/L (136-145) L 04/21/22 03:57 Potassium 4.0 mmol/L (3.5-5.1) 04/21/22 03:57 Chloride 99 mmol/L (98-107) 04/21/22 03:57 Carbon Dioxide 23 mmol/L (22-29) 04/21/22 03:57 Anion Gap 15.0 (5-19) 04/21/22 03:57 BUN 9 mg/dL (8-23) 04/21/22 03:57 Creatinine 0.6 mg/dL (0.5-0.9) 04/21/22 03:57 GFR Calculation 101.6 mL/min (90-130) 04/21/22 03:57 Glucose 309 mg/dL (65-115) H 04/21/22 03:57 POC Glucose 215 mg/dL (70-110) H 04/22/22 05:52 Calculated Osmolality 286 mOsm/kg (285-295) 04/21/22 03:57 Calcium 8.4 mg/dL (8.5-10.5) L 04/21/22 03:57 Phosphorus 2.7 mg/dL (2.5-4.5) 04/22/22 05:12 Magnesium 2.0 mg/dL (1.7-2.3) 04/22/22 05:12 Total Bilirubin 0.4 mg/dL (0.15-1.2) 04/21/22 03:57 AST 20 U/L (0-32) 04/21/22 03:57 ALT 9 U/L (0-33) 04/21/22 03:57 Alkaline Phosphatase 91 U/L (35-105) 04/21/22 03:57 Troponin T Baseline 12 ng/L (0-10) H 04/18/22 20:21 Troponin T 120 Minute 15.54 ng/L (0-10) H 04/18/22 22:45 Delta Troponin T 3.54 ABS# (0-10) 04/18/22 22:45 Troponin T Hi Sens 6Hr 17.19 ng/L (0-10) H 04/19/22 01:25 Troponin T Hi Sens 6Hr Delta 5.19 ng/L (0-12) 04/19/22 01:25 Total Protein 5.0 g/dL (6.6-8.7) L 04/21/22 03:57 Albumin 3.0 g/dL (3.5-5.2) L 04/21/22 03:57 Globulin 2.0 g/dL (1.3-4.6) 04/21/22 03:57 TSH 0.10 uIU/mL (0.27-4.20) L 04/19/22 01:25 Free T4 1.10 ng/dL (0.82-1.77) 04/19/22 01:25 Free T3 1.1 PG/ML (2.0-4.4) L 04/19/22 01:25 Urine Color Yellow (Yellow) 04/18/22 22:29 Urine Appearance Sl hazy (CLEAR) A 04/18/22 22:29 Urine pH 5.0 (5-7) 04/18/22 22:29 Ur Specific [place] 1.020 (1.005-1.030) 04/18/22 22:29 Urine Protein Trace (Negative) A 04/18/22 22:29 Urine Glucose (UA) 4+ (Normal) H 04/18/22 22:29 Urine Ketones =>160 (Negative) 04/18/22 22:29 Urine Blood Trace (Negative) A 04/18/22 22:29 Urine Nitrate Negative 04/18/22 22:29 Urine Bilirubin Negative (Negative) 04/18/22 22:29 Urine Urobilinogen 0.2 mg/dL (Negative) 04/18/22 22:29 Ur Leukocyte Esterase Trace 04/18/22 22:29 Urine RBC 0-4 /hpf (0-2) H 04/18/22 22:29 Urine WBC 15-25 /hpf (0-5) H 04/18/22 22:29 Ur Squamous Epith Cells Too numerous to cnt /hpf (0-5) H 04/18/22 22:29 Amorphous Sediment Not Reportable 04/18/22 22:29 Urine Bacteria 3+ /hpf (NONE) H 04/18/22 22: Urine Yeast 1+ /hpf H 04/18/22 22:29 Ethyl Alcohol < 10 mg/dL (0-10) 04/18/22 20:21 Serum Ketones Positive (Negative) H 04/18/22 20:21 Vitals Last Vital Signs Temp 98.1 F 04/22/22 07:59 Pulse 63 04/22/22 07:59 Resp 16 04/22/22 07:59 BP 143/80 04/22/22 07:59 Pulse Ox 92 04/22/22 07:59 O2 Del Method 04/22/22 07:59 Discharge Plan Discharge Patient Disposition: Home Condition: Stable Prescriptions: New insulin glargine 100 unit/mL Solution 10 unit SUBCUT BID@0900,2100 15 Days Qty: 10 0RF Humalog U-100 Insulin 100 unit/mL Solution See Rx Instructions .ROUTE .COMPLEX 15 Days Qty: 10 0RF Rx Instructions: 141-180 - 4 units 181-220 - 6 units 221-260 - 8 units 261-300 - 10 units 301-350 - 12 units 351 - 400- 14 units > 400 -16 units Humalog U-100 Insulin 100 unit/mL Solution 3 unit SUBCUT TIDAC 15 Days Qty: 10 0RF Rx Instructions: Skip dose if not eating. cefpodoxime 200 mg tablet 200 mg PO BID 3 Days Qty: 6 0RF Rx Instructions: must administer with a meal/food (DME) Assure ID Pen Needle 30 gauge x 3/16 needle See Rx Instructions .ROUTE Qty: 100 0RF Rx Instructions: As directed Continued paroxetine HCl 20 mg tablet 20 mg PO DAILY Qty: 30 0RF mesalamine 0.375 gram capsule,extended release 24hr 1.5 g PO DAILY cholecalciferol (vitamin D3) 10 mcg (400 unit) capsule 10 mcg PO DAILY fludrocortisone 0.1 mg tablet 0.1 mg PO DAILY Qty: 90 1RF (DME) FreeStyle Adwoa 14 Day Sensor Kit See Rx Instructions .Route Qty: 3 3RF Rx Instructions: check blood sugar levothyroxine 100 mcg tablet 100 mcg PO DAILY Qty: 90 3RF Rx Instructions: 1 hour before breakfast or any other medicine linagliptin 5 mg tablet 5 mg PO DAILY Qty: 90 3RF hydroxyzine HCl 25 mg tablet 25 mg PO BID PRN (Reason: itching) Qty: 60 2RF Probiotic Blend 2 billion cell-50 mg Capsule 1 cap PO DAILY Rx Instructions: give with meal/snack aspirin 81 mg Tablet,Delayed Release (Dr/Ec) 81 mg PO QAM pantoprazole 40 mg tablet,delayed release (DR/EC) 40 mg PO DAILY PRN (Reason: Acid Reflux) metoclopramide HCl 10 mg tablet 10 mg PO BID PRN (Reason: gerd) Held insulin lispro [Humalog U-100 Insulin] 100 unit/mL solution See Rx Instructions .ROUTE .COMPLEX Qty: 50 3RF Hold Instructions: resume after seeing dr. levy endocrinology Rx Instructions: Humalog vial via insulin pump. Max daily dose 50 units.; estradiol 0.5 mg tablet 0.5 mg PO DAILY Hold Instructions: see pcp Discontinued Paxlovid (EUA) 150 mg x 2- 100 mg tablet See Rx Instructions PO .COMPLEX Qty: 30 0RF Rx Instructions: take TWO 150 mg tablets of nirmatrelvir with ONE 100 mg tablet of ritonavir twice daily for 5 days PO Discharge Orders: Discharge Order (Routine); Ordered 04/22/22 Ordered By: Stacia Hyde Referrals: Cyril Levy MD [Physician] - 05/05/22 9:15 am Jayme Joe MD [Primary Care Provider] - 1-3 days (Please call for an follow-up appointment with Dr. Joe in 4 to 7 day. ) Discharge Diet: Diabetic Discharge Activity: Resume usual activity Patient Instructions: Cefpodoxime Proxetil (By mouth), Insulin Glargine (By injection), Insulin Lispro (By injection) (HumaLOG, HumaLOG Pen, Lispro-PFC,..., Type 2 Diabetes in Adults: New Diagnosis (IP), Opioid Safety Activity Restrictions/Additional Instructions: Please f/u with endocrinology and pcp as directed. Stay well hydrated. If symptoms worsen or new symptoms arise, please return to ER. Discharge Attestations Time Spent in Discharge Care*: greater than 30 min Quality Metrics Clinical Quality Measures [ No reported AMI, CVA or VTE this stay] Coding Level of Care Code Acute Chg FW DC note Diagnoses DKA (diabetic ketoacidosis) E11.10 AMS (altered mental status) R41.82 Diabetes type 2, uncontrolled E11.65 Glycemic state: with hyperglycemia Hypothyroidism E03.9 Hypothyroidism type: acquired Hyperkalemia E87.5
[2022-04-22 10:50] LABS: Glucose Point of Care 163 mg/dL (70-110)
[2022-04-22 11:57] VITALS: BP 143/80; PULSE 63; RESP 16; TEMP 36.7
== END 2022-04-22 12:49 | disposition home or self-care (01) | DRG 637 ==
LOC: ER 21:45 → ICU 21:57 → MEDSURG 04-20 17:21
PROVIDERS: Admitting Provider Internal Medicine; Emergency Provider Emergency Medicine; PCP Family Medicine; Visit Provider Internal Medicine
DX: E11.10 Type 2 diabetes mellitus with ketoacidosis without coma (principal); U07.1 COVID-19; E87.1 Hypo-osmolality and hyponatremia; N39.0 Urinary tract infection, site not specified; N17.9 Acute kidney failure, unspecified; E27.40 Unspecified adrenocortical insufficiency; Z96.41 Presence of insulin pump (external) (internal); E03.9 Hypothyroidism, unspecified; E87.5 Hyperkalemia; E86.0 Dehydration; W19.XXXA Unspecified fall, initial encounter; M54.2 Cervicalgia; M53.3 Sacrococcygeal disorders, not elsewhere classified; Z79.82 Long term (current) use of aspirin
CPT/HCPCS: 36415; 36416; 36600; 70450; 71045; 72125; 72220; 80048; 80053; 80307; 81001; 82009; 82803; 82947; 82962; 83735; 84100; 84439; 84443; 84481; 84484; 85025; 87086; 87106; 92610; 93005; 94760; 96365; 96367; 96372; 96375; 97161; 99285; J0696; J1644; J1815; J2405; J3480; J7030; J7050

== ENCOUNTER → 2022-06-06 16:47 | Outpatient (BNVA) | payer OTHER, SELFPAY | PROVIDERS: PCP Family Medicine; Visit Provider Family Medicine | DX: E03.9 Hypothyroidism, unspecified (principal); R30.0 Dysuria | CPT/HCPCS: 84439; 84443; 84481; 87086 ==

== ENCOUNTER 2022-08-04 07:16 | Outpatient (CLI) | payer OTHER, SELFPAY ==
[2022-08-04 07:28] VITALS: BMI 29.2
--- NOTE | 2022-08-04 07:36 | ECG_ITS ---
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 Interpretive Statements NAME OF STUDY: EXERCISE SESTAMIBI STRESS TEST INDICATION: Dyspnea on Exertion/fatigue, PROCEDURE: The baseline electrocardiogram showed normal sinus rhythm with a possible left atrial enlargement. Poor R wave progression. At the baseline, the patient's blood pressure was 151/108 mm Hg with a heart rate of 68. The patient exercised for 7 minutes and 28 seconds on a standard Wali protocol. Patient attained a maximum heart rate of 139 beats per minute(87% of the maximum predicted heart rate) with a blood pressure at the peak exercise of 161/91 mm Hg. The EKG at the peak exercise revealed no significant changes. Patient did not have any chest pain or any significant arrhythmis with the exercise Sestamibi was injected 1 minute prior to the peak exercise During the recovery phase, there were no new changes. Blood pressure at the end of the recovery phase was 155/84 mm Hg with a heart rate of 81 per minute. CONCLUSION: 1. No significant EKG use of the treadmill exercise 2. No exercise-induced chest pain or cardiac arrhythmia 3. Fair exercise tolerance, attained a maximum of 10.2 METs 4. Sestamibi/Sestamibi perfusion results pending; see separate report. Electronically Signed On 08-04-2022 12:03:48 [employer] by Kiko Sanchez M.D. [id number]
--- NOTE | 2022-08-04 07:36 | NMCV_ITS ---
NM dev perf SPECT r/s* [id number] Lilo Chong Age: 61 Gender: F : 1960 Exam Date: 08/04/2022 07:36 Ordering Phys: Louann Cobian Technologist: UMAIR Heller Exam Location: [facility] Indications: SHORTNESS OF BREATH STRESS TEST Please see separate stress test report in [facility] for full findings IMAGE PROTOCOL Rest/Stress 1 Exercise Day Radiopharmaceutical Dose (mCi) Administration Site Administered by Rest: Tc-99m 10.6 IV UMAIR Heller Sestamibi Stress:Tc-99m 32.5 IV UMAIR Kwok Sestamibi Rest: 04-Aug-2022 60 Discovery 630 Stress: 04-Aug-2022 15 Discovery 630 Radiopharmaceutical was injected at 85 % maximum heart rate. Images obtained in supine and prone position. SPECT RESULTS Technical Quality: Excellent Raw Data Analysis: Normal Image Corrections: No attenuation or motion correction applied Summed Stress Score: 0 Summed Rest Score: 1 Summed Difference Score: 0 PERFUSION FINDINGS SPECT images demonstrate homogeneous tracer distribution throughout the myocardium. FUNCTIONAL RESULTS (calculated via Gated SPECT) Stress Image LV EF (%): 79 Stress EDV (mL):68 TID: 1.03 Stress ESV (mL):14 FUNCTIONAL FINDINGS: There is normal left ventricular systolic function. IMPRESSIONS 1. Normal myocardial perfusion imaging with no evidence of ischemia 2. LV systolic function is normal Vamshi Smith MD (Electronically Signed) Final Date: 04 August 2022 12:57 S
[2022-08-04 09:16] VITALS: BP 155/84; PULSE 81
== END 2022-08-04 07:17 | disposition home or self-care (01) ==
LOC: CDL 07:16
PROVIDERS: PCP Family Medicine; Visit Provider Nurse Practitioner Family
DX: R53.83 Other fatigue (principal); R06.09 Other forms of dyspnea; R06.02 Shortness of breath
CPT/HCPCS: 36415; 78452; 93017; A9500

== ENCOUNTER 2022-09-06 14:52 | Outpatient (CLI) | payer OTHER, SELFPAY ==
[2022-09-06 16:33] LABS: Estmated Average Glucose 235; Hemoglobin A1C 9.8 % (4.0-6.0)
[2022-09-06 16:38] LABS: Alanine Aminotransferase 15 U/L (0-33); Albumin Level 4.1 g/dL (3.5-5.2); Alkaline Phosphatase 106 U/L (35-105); Anion Gap 13.1 (5-19); Aspartate Amino Transferase 17 U/L (0-32); Blood Urea Nitrogen 12 mg/dL (8-23); Carbon Dioxide 28 mmol/L (22-29); Chloride 99 mmol/L (98-107); Chol HDL Ratio 2.47 mg/dL (0.0-4.40); Cholesterol 237 mg/dL (0-200); Free T4 Free Thyroxine 0.95 ng/dL (0.82-1.77); Globulin 2.7 g/dL (1.3-4.6); Glomerular Filtration Rate 85.1 mL/min (90-130); Glucose 270 mg/dL (65-115); HDL Cholesterol 96 mg/dL (60-100); LDL Cholesterol Calculated 124 mg/dL (50-129); LDL HDL Ratio 1.29 RATIO (0.00-3.22); Osmolality Calculated 291 mOsm/kg (285-295); Potassium 4.1 mmol/L (3.5-5.1); Sodium 136 mmol/L (136-145); Thyroid Stimulating Hormone 4.83 uIU/mL (0.27-4.20); Total Bilirubin 0.2 mg/dL (0.15-1.2); Total Protein 6.8 g/dL (6.6-8.7); Triglycerides 85 mg/dL (0-150)
== END 2022-09-06 14:53 | disposition home or self-care (01) ==
LOC: LAB 14:54
PROVIDERS: PCP Family Medicine; Visit Provider Internal Medicine
DX: E03.9 Hypothyroidism, unspecified (principal); E11.65 Type 2 diabetes mellitus with hyperglycemia; E78.2 Mixed hyperlipidemia
CPT/HCPCS: 36415; 80053; 80061; 83036; 84439; 84443

== ENCOUNTER → 2022-09-28 11:31 | Outpatient (BNVA) | payer OTHER, SELFPAY | PROVIDERS: PCP Family Medicine; Visit Provider Clinical Nurse Specialist Adult Health | DX: R11.0 Nausea (principal); B34.9 Viral infection, unspecified | CPT/HCPCS: 81000; 87086; 87400 ==

== ENCOUNTER → 2022-11-01 13:20 | Outpatient (BNVA) | payer OTHER, SELFPAY | PROVIDERS: PCP Family Medicine; Visit Provider Family Medicine | DX: Z51.81 Encounter for therapeutic drug level monitoring (principal) | CPT/HCPCS: 85025 ==

== ENCOUNTER 2022-11-03 09:18 | Outpatient (CLI) | payer OTHER, SELFPAY ==
--- NOTE | 2022-11-03 09:30 | USCV_ITS ---
Lilo Chong Age: 62 Gender: F : 1960 Exam Date: 11/03/2022 09:48 Ordering Phys: Jayme Joe MD Technologist: Exam [place] [facility] [place]ication: Rt arm swelling and pain HISTORY: Upper extremity swelling. Upper extremity pain. PROCEDURES: Venous duplex imaging was performed in only the right upper extremity. The following venous structures were evaluated: internal jugular vein, subclavian vein, axillary vein, and brachial veins. In addition, the basilic vein, cephalic vein, radial vein, and ulnar vein. Serial compression, augmentation maneuvers, and spectral Doppler flow evaluation were performed. FINDINGS: No evidence of deep vein thrombosis or superficial thrombophlebitis in the right upper extremity. CONCLUSIONS No evidence of thrombus of the right upper extremity veins. Rafi Pandey MD (Electronically Signed) Final Date: 03 November 2022 16:07 S
== END 2022-11-03 09:19 | disposition home or self-care (01) ==
PROVIDERS: PCP Family Medicine; Visit Provider Family Medicine
DX: M79.89 Other specified soft tissue disorders (principal)
CPT/HCPCS: 93971

== ENCOUNTER → 2022-11-16 10:06 | Outpatient (BNVA) | payer OTHER, SELFPAY | PROVIDERS: PCP Family Medicine; Visit Provider Family Medicine | DX: R30.0 Dysuria (principal) | CPT/HCPCS: 81000; 87077; 87086; 87184 ==

== ENCOUNTER → 2022-12-05 15:00 | Outpatient (BNVA) | payer OTHER, SELFPAY | PROVIDERS: PCP Family Medicine; Visit Provider Internal Medicine | DX: E11.65 Type 2 diabetes mellitus with hyperglycemia (principal); E03.9 Hypothyroidism, unspecified | CPT/HCPCS: 36415; 80053; 80061; 82044; 83036; 84439; 84443 ==

== ENCOUNTER 2023-02-22 12:15 | Outpatient (CLI) | payer OTHER, SELFPAY ==
[2023-02-22 13:24] LABS: Creatinine Urine, Random 14 mg/dL (28-217); Microalbumin Random Urine 1 ug/dL (0-20)
[2023-02-22 13:30] LABS: Alanine Aminotransferase 18 U/L (0-33); Alkaline Phosphatase 93 U/L (35-105); Aspartate Amino Transferase 19 U/L (0-32); Blood Urea Nitrogen 9 mg/dL (8-23); Calcium 8.4 mg/dL (8.5-10.5); Carbon Dioxide 28 mmol/L (22-29); Chloride 98 mmol/L (98-107); Chol HDL Ratio 2.54 mg/dL (0.0-4.40); Cholesterol 216 mg/dL (0-200); Free T4 Free Thyroxine 1.09 ng/dL (0.82-1.77); Globulin 2.3 g/dL (1.3-4.6); Glomerular Filtration Rate 84.8 mL/min (90-130); Glucose 242 mg/dL (65-115); HDL Cholesterol 85 mg/dL (60-100); LDL Cholesterol Calculated 106 mg/dL (50-129); LDL HDL Ratio 1.25 RATIO (0.00-3.22); Osmolality Calculated 289 mOsm/kg (285-295); Sodium 136 mmol/L (136-145); Thyroid Stimulating Hormone 0.81 uIU/mL (0.27-4.20); Total Bilirubin 0.2 mg/dL (0.15-1.2); Total Protein 6.3 g/dL (6.6-8.7); Triglycerides 127 mg/dL (0-150)
[2023-02-22 13:31] LABS: Microalbum Creatinine Ratio Ur 71 mg/dL (0-20)
[2023-02-22 14:21] LABS: Estmated Average Glucose 217; Hemoglobin A1C 9.2 % (4.0-6.0)
== END 2023-02-22 12:16 | disposition home or self-care (01) ==
PROVIDERS: PCP Family Medicine; Visit Provider Internal Medicine
DX: E03.9 Hypothyroidism, unspecified (principal); E11.65 Type 2 diabetes mellitus with hyperglycemia
CPT/HCPCS: 36415; 80053; 80061; 82044; 83036; 84439; 84443

== ENCOUNTER 2023-07-05 08:20 | Outpatient (CLI) | payer OTHER, SELFPAY ==
[2023-07-05 09:10] LABS: Creatinine Urine, Random 107 mg/dL (28-217); Microalbum Creatinine Ratio Ur 19 mg/dL (0-20); Microalbumin Random Urine 2 ug/dL (0-20)
[2023-07-05 09:15] LABS: Alanine Aminotransferase 15 U/L (0-33); Albumin Level 4.4 g/dL (3.5-5.2); Alkaline Phosphatase 94 U/L (35-105); Aspartate Amino Transferase 20 U/L (0-32); Blood Urea Nitrogen 9 mg/dL (8-23); Calcium 9.4 mg/dL (8.5-10.5); Carbon Dioxide 30 mmol/L (22-29); Chloride 101 mmol/L (98-107); Chol HDL Ratio 2.78 mg/dL (0.0-4.40); Cholesterol 222 mg/dL (0-200); Globulin 2.8 g/dL (1.3-4.6); Glomerular Filtration Rate 84.8 mL/min (90-130); Glucose 70 mg/dL (65-115); HDL Cholesterol 80 mg/dL (60-100); LDL Cholesterol Calculated 129 mg/dL (50-129); LDL HDL Ratio 1.61 RATIO (0.00-3.22); Osmolality Calculated 287 mOsm/kg (285-295); Sodium 140 mmol/L (136-145); Thyroid Stimulating Hormone 3.69 uIU/mL (0.27-4.20); Total Bilirubin 0.3 mg/dL (0.15-1.2); Total Protein 7.2 g/dL (6.6-8.7); Triglycerides 66 mg/dL (0-150)
[2023-07-05 11:46] LABS: Free T4 Free Thyroxine 1.09 ng/dL (0.82-1.77)
[2023-07-05 13:30] LABS: Estmated Average Glucose 197; Hemoglobin A1C 8.5 % (4.0-6.0)
[2023-07-09 08:55] LABS: Thyroglobulin AB 1 IU/mL (< or = 1); Thyroid Peroxidase Antobodies 1 IU/mL (<9)
== END 2023-07-05 08:21 | disposition home or self-care (01) ==
LOC: LAB 08:21
PROVIDERS: PCP Family Medicine; Visit Provider Internal Medicine
DX: E11.65 Type 2 diabetes mellitus with hyperglycemia (principal); E03.9 Hypothyroidism, unspecified
CPT/HCPCS: 36415; 80053; 80061; 82044; 83036; 84439; 84443; 86376; 86800

== ENCOUNTER → 2023-10-19 18:08 | Outpatient (BNVA) | payer OTHER, SELFPAY | PROVIDERS: PCP Family Medicine; Visit Provider Registered Nurse Neonatal Intensive Care | DX: R39.9 Unspecified symptoms and signs involving the genitourinary system (principal) | CPT/HCPCS: 81000; 87077; 87086; 87184 ==

== ENCOUNTER → 2023-12-18 10:24 | Outpatient (BNVA) | payer OTHER, SELFPAY | PROVIDERS: PCP Family Medicine; Visit Provider Registered Nurse Neonatal Intensive Care | DX: M79.641 Pain in right hand (principal) | CPT/HCPCS: 73130 ==

== ENCOUNTER 2024-02-20 11:43 | Outpatient (CLI) | payer OTHER, SELFPAY ==
[2024-02-20 12:43] LABS: Estmated Average Glucose 220; Hemoglobin A1C 9.3 % (4.0-6.0)
[2024-02-20 12:50] LABS: Creatinine Urine, Random 17 mg/dL (28-217); Microalbum Creatinine Ratio Ur 59 mg/dL (0-20); Microalbumin Random Urine 1 ug/dL (0-20)
[2024-02-20 12:57] LABS: Alanine Aminotransferase 16 U/L (0-33); Albumin Level 4.3 g/dL (3.5-5.2); Alkaline Phosphatase 116 U/L (35-105); Anion Gap 13.6 (5-19); Aspartate Amino Transferase 19 U/L (0-32); Blood Urea Nitrogen 10 mg/dL (8-23); Calcium 9.5 mg/dL (8.5-10.5); Carbon Dioxide 29 mmol/L (22-29); Chloride 97 mmol/L (98-107); Chol HDL Ratio 2.14 mg/dL (0.0-4.40); Cholesterol 167 mg/dL (0-200); Globulin 3.1 g/dL (1.3-4.6); Glomerular Filtration Rate 84.5 mL/min (90-130); Glucose 247 mg/dL (65-115); HDL Cholesterol 78 mg/dL (60-100); LDL Cholesterol Calculated 77 mg/dL (50-129); LDL HDL Ratio 0.99 RATIO (0.00-3.22); Osmolality Calculated 287 mOsm/kg (285-295); Potassium 4.6 mmol/L (3.5-5.1); Sodium 135 mmol/L (136-145); Thyroid Stimulating Hormone 3.95 uIU/mL (0.27-4.20); Total Bilirubin 0.4 mg/dL (0.15-1.2); Total Protein 7.4 g/dL (6.6-8.7); Triglycerides 58 mg/dL (0-150)
[2024-02-20 13:46] LABS: Free T4 Free Thyroxine 1.12 ng/dL (0.82-1.77)
== END 2024-02-20 11:44 | disposition home or self-care (01) ==
PROVIDERS: PCP Family Medicine; Visit Provider Internal Medicine
DX: E11.65 Type 2 diabetes mellitus with hyperglycemia (principal); E78.2 Mixed hyperlipidemia; E03.9 Hypothyroidism, unspecified
CPT/HCPCS: 36415; 80053; 80061; 82044; 83036; 84439; 84443

== ENCOUNTER → 2024-03-14 12:18 | Outpatient (BNVA) | payer OTHER, SELFPAY | PROVIDERS: PCP Family Medicine; Visit Provider Family Medicine | DX: N39.0 Urinary tract infection, site not specified (principal); R30.0 Dysuria | CPT/HCPCS: 81000; 87086 ==

== ENCOUNTER 2024-06-24 08:11 | Outpatient (CLI) | payer OTHER, SELFPAY ==
[2024-06-24 09:01] LABS: Estmated Average Glucose 217; Hemoglobin A1C 9.2 % (4.0-6.0)
[2024-06-24 09:06] LABS: Creatinine Urine, Random 11 mg/dL (28-217); Microalbumin Random Urine 1 ug/dL (0-20)
[2024-06-24 09:17] LABS: Alkaline Phosphatase 117 U/L (35-105); Blood Urea Nitrogen 7 mg/dL (8-23); Calcium 9.1 mg/dL (8.5-10.5); Carbon Dioxide 26 mmol/L (22-29); Chloride 97 mmol/L (98-107); Chol HDL Ratio 2.09 mg/dL (0.0-4.40); Cholesterol 155 mg/dL (0-200); Free T4 Free Thyroxine 1.02 ng/dL (0.82-1.77); Glomerular Filtration Rate 84.5 mL/min (90-130); Glucose 118 mg/dL (65-115); HDL Cholesterol 74 mg/dL (60-100); LDL Cholesterol Calculated 66 mg/dL (50-129); LDL HDL Ratio 0.89 RATIO (0.00-3.22); Osmolality Calculated 279 mOsm/kg (285-295); Sodium 135 mmol/L (136-145); Thyroid Stimulating Hormone 4.45 uIU/mL (0.27-4.20); Total Bilirubin 0.4 mg/dL (0.15-1.2); Triglycerides 75 mg/dL (0-150)
[2024-06-24 09:21] LABS: Microalbum Creatinine Ratio Ur 91 mg/dL (0-20)
[2024-06-24 09:25] LABS: Alanine Aminotransferase 16 U/L (0-33); Anion Gap 16.2 (5-19); Aspartate Amino Transferase 24 U/L (0-32); Potassium 4.2 mmol/L (3.5-5.1)
== END 2024-06-24 08:12 | disposition home or self-care (01) ==
LOC: LAB 08:13
PROVIDERS: PCP Family Medicine; Visit Provider Internal Medicine
DX: E11.65 Type 2 diabetes mellitus with hyperglycemia (principal); E78.2 Mixed hyperlipidemia; E55.9 Vitamin D deficiency, unspecified
CPT/HCPCS: 36415; 80053; 80061; 82044; 83036; 84439; 84443

== ENCOUNTER → 2024-08-11 17:19 | Outpatient (BNVA) | payer OTHER, SELFPAY | PROVIDERS: PCP Family Medicine; Visit Provider Family Medicine | DX: M79.642 Pain in left hand (principal); R93.6 Abnormal findings on diagnostic imaging of limbs | CPT/HCPCS: 73130 ==

== ENCOUNTER → 2024-09-08 10:46 | Outpatient (BNVA) | payer OTHER, SELFPAY | PROVIDERS: PCP Family Medicine; Visit Provider Specialist | DX: M79.645 Pain in left finger(s) (principal); M79.644 Pain in right finger(s); M65.341 Trigger finger, right ring finger; M65.312 Trigger thumb, left thumb; M24.542 Contracture, left hand | CPT/HCPCS: 73130 ==

== ENCOUNTER 2024-09-18 12:49 | Outpatient (CLI) | payer OTHER, SELFPAY ==
[2024-09-18 13:21] LABS: Basophils % 0.5 %; Eosinophils # 0.4 10^3/uL (0.0-0.8); Eosinophils % 4.8 %; Hematocrit 38.4 % (36-47); Lymphocytes # 2.3 10^3/uL (0.8-4.8); Lymphocytes % 26.3 %; Mean Corpuscular HGB Conc 32.8 g/dL (30-55); Mean Corpuscular Hemoglobin 27.2 pg (27-33); Mean Corpuscular Volume 82.9 fl (85-98); Mean Platelet Volume 9.8 fL (7.4-10.4); Monocytes # 0.5 10^3/uL (0.2-0.9); Monocytes % 6.3 %; Neutrophils # 5.35 10^3/uL (1.8-7.7); Nucleated Red Blood Cells % 0 %; Platelet Count 311 10^3/cmm (157-399); Red Blood Count 4.63 10^6/uL (3.85-5.65); Red Cell Distribution Width 12.6 % (12.1-15.1); White Blood Count 8.62 10^3/uL (3.29-11.43)
[2024-09-18 13:28] LABS: Erythrocyte Sedimentation Rate 10 mm/hr (0-15)
[2024-09-18 13:35] LABS: Alanine Aminotransferase 15 U/L (0-33); Aspartate Amino Transferase 17 U/L (0-32); C Reactive Protein 4.1 mg/L (0.0-4.9); Creatine Phosphokinase 106 U/L (26-192); Gamma Glutamyl Transferase 12 U/L (5-36); Lactate Dehydrogenase 270 U/L (135-214)
[2024-09-19 13:55] LABS: COMPLEMENT COMPONENT C3C 147 mg/dL (83-193); COMPLEMENT COMPONENT C4C 25 mg/dL (15-57)
[2024-09-19 14:21] LABS: COMPLEMENT, TOTAL (CH50) >60 U/mL (31-60)
[2024-09-19 23:35] LABS: HLA-B27 NEGATIVE (NEGATIVE)
== END 2024-09-18 12:50 | disposition home or self-care (01) ==
PROVIDERS: Family Provider Specialist; PCP Family Medicine; Referring Provider Specialist; Visit Provider Internal Medicine
DX: R76.8 Other specified abnormal immunological findings in serum (principal); M25.50 Pain in unspecified joint
CPT/HCPCS: 36415; 82550; 82977; 83615; 84450; 84460; 85025; 85651; 86140; 86160; 86162; 86200; 86235; 86255; 86376; 86431; 86812

== ENCOUNTER → 2024-09-25 11:07 | Outpatient (BNVA) | payer OTHER, SELFPAY | PROVIDERS: Family Provider Specialist; PCP Family Medicine; Visit Provider Family Medicine | DX: J06.9 Acute upper respiratory infection, unspecified (principal) | CPT/HCPCS: 87400; 87426 ==

== ENCOUNTER → 2024-11-12 11:10 | Outpatient (BNVA) | payer OTHER, SELFPAY | PROVIDERS: Family Provider Specialist; PCP Family Medicine; Referring Provider Internal Medicine; Visit Provider Internal Medicine Rheumatology | DX: M06.00 Rheumatoid arthritis without rheumatoid factor, unspecified site (principal); Z79.899 Other long term (current) drug therapy; M25.50 Pain in unspecified joint; M54.6 Pain in thoracic spine; M54.50 Low back pain, unspecified; M54.2 Cervicalgia | CPT/HCPCS: 72040; 72072; 72100; 82306; 82565; 83520; 84439; 84443; 85651; 86140; 86480; 86704; 86803; 87340 ==

== ENCOUNTER 2024-12-12 12:43 | Outpatient (CLI) | payer OTHER, SELFPAY ==
[2024-12-12 13:18] LABS: Basophils % 0.4 %; Eosinophils # 0.4 10^3/uL (0.0-0.8); Eosinophils % 5.6 %; Hematocrit 35.9 % (36-47); Lymphocytes # 1.9 10^3/uL (0.8-4.8); Lymphocytes % 25.5 %; Mean Corpuscular HGB Conc 33.4 g/dL (30-55); Mean Corpuscular Hemoglobin 28.2 pg (27-33); Mean Corpuscular Volume 84.3 fl (85-98); Mean Platelet Volume 9.3 fL (7.4-10.4); Monocytes # 0.6 10^3/uL (0.2-0.9); Monocytes % 7.4 %; Neutrophils # 4.51 10^3/uL (1.8-7.7); Neutrophils % 60.6 %; Nucleated Red Blood Cells % 0 %; Platelet Count 299 10^3/cmm (157-399); Red Blood Count 4.26 10^6/uL (3.85-5.65); Red Cell Distribution Width 13.4 % (12.1-15.1); White Blood Count 7.45 10^3/uL (3.29-11.43)
[2024-12-12 13:27] LABS: Erythrocyte Sedimentation Rate 10 mm/hr (0-15)
[2024-12-12 13:47] LABS: Creatinine Urine, Random 33 mg/dL (28-217); Microalbum Creatinine Ratio Ur 30 mg/dL (0-20); Microalbumin Random Urine 1 ug/dL (0-20)
[2024-12-12 13:52] LABS: Estmated Average Glucose 246; Hemoglobin A1C 10.2 % (4.0-6.0)
[2024-12-12 13:55] LABS: Alanine Aminotransferase 21 U/L (0-33); Albumin Level 4.2 g/dL (3.5-5.2); Alkaline Phosphatase 112 U/L (35-105); Anion Gap 16.2 (5-19); Aspartate Amino Transferase 20 U/L (0-32); Blood Urea Nitrogen 10 mg/dL (8-23); Calcium 9.2 mg/dL (8.5-10.5); Carbon Dioxide 24 mmol/L (22-29); Chloride 95 mmol/L (98-107); Globulin 2.8 g/dL (1.3-4.6); Glomerular Filtration Rate 84.2 mL/min (90-130); Glucose 220 mg/dL (65-115); Osmolality Calculated 278 mOsm/kg (285-295); Potassium 4.2 mmol/L (3.5-5.1); Sodium 131 mmol/L (136-145); Total Bilirubin 0.4 mg/dL (0.15-1.2)
[2024-12-12 14:07] LABS: Glomerular Filtration Rate 84.2 mL/min (90-130); Thyroid Stimulating Hormone 3.47 uIU/mL (0.27-4.20)
[2024-12-12 14:31] LABS: Free T4 Free Thyroxine 1.08 ng/dL (0.82-1.77)
== END 2024-12-12 12:44 | disposition home or self-care (01) ==
PROVIDERS: Internal Medicine; Family Provider Specialist; PCP Family Medicine; Visit Provider Internal Medicine Rheumatology
DX: Z79.899 Other long term (current) drug therapy (principal); M06.00 Rheumatoid arthritis without rheumatoid factor, unspecified site; E78.2 Mixed hyperlipidemia; Z78.0 Asymptomatic menopausal state; E55.9 Vitamin D deficiency, unspecified; E03.9 Hypothyroidism, unspecified; E11.65 Type 2 diabetes mellitus with hyperglycemia
CPT/HCPCS: 36415; 80053; 82044; 82248; 82565; 83036; 84439; 84443; 85025; 85651; 86140

== ENCOUNTER → 2025-04-02 12:08 | Outpatient (BNVA) | payer OTHER, SELFPAY | PROVIDERS: PCP Family Medicine; Visit Provider Internal Medicine Rheumatology | DX: Z79.899 Other long term (current) drug therapy (principal) | CPT/HCPCS: 36415; 80076; 82565; 85025; 85651; 86140 ==

== ENCOUNTER 2025-04-11 19:34 | Emergency (ER) | payer OTHER, SELFPAY ==
[2025-04-11 19:36] VITALS: BP 121/80; PULSE 89; RESP 14; TEMP 36.3; O2SAT 98
--- OUTSIDE RECORDS SUMMARY | 2025-04-11 19:40 | XMS_ITS | Encounter Summary ---
Author Organization [facility] Address [address] [place] [address] Care Team Providers Care Senior Quality Assurance Specialist Name Role Phone RomanArt toledo Primary Care Provider [phone] Reason for Referral * Radiology Services (Routine) - Closed Specialty Diagnoses / Procedures Referred By Ariana patterson Referred To Contact Radiology Diagnoses Hiatal hernia with GERD Procedures XR UPR GI XR UPR GI AND SMALL BOWEL Matheus Dinh DO [address] [address] Phone: tel: fax: [facility] [address] [place] [address] Phone: tel: fax: Referral ID Status Reason Start Date Expiration Date V isits Requested Visits Authorized [id number] Closed [facility] TO SCHEDULE (SGF) 12/02/2018 01/02/2020 1 1 Encounter Details Date Type Department Care Team (Late st Contact Info) Description 12/30/2018 Ancillary Orders [facility] Gen Spec Surg [place] [address] [place] [id number] Matheus Dinh DO [address] [address] Hiatal hernia with GERD Social History Tobacco Use Types Packs/Day Years Used Date Smoking Tobacco: Never Smokeless Tobacco: Never Alcohol Use Standard Drinks/Week Comments No 0 (1 standard drink = 0.6 oz pur e alcohol) Comments No Sex and Gender Information Value Date Recorded Sex Assigned at Not on file Legal Sex Female 9:52 AM CDT Gender Identity Not on file Sexual Orientation Not on file documented as of this encounter Plan of Treatment Not on file documented as of this encounter Results * XR UPR GI (12/30/2018 10:44 AM CDT) Anatomical Region Laterality Modality Abdomen Computed Radiogr aphy 12/30/2018 10:4 6 AM CDT Impressions 12/30/2018 12:09 PM CDT IMPRESSION: Please see below. Exam: XR UPR GI Date/Time of Exam: 12/30/2018 10:44 AM Reason For Exam: See Diagnosis. Diagnosis: Hiatal hernia with GERD; Hiatal hernia with GERD. Preliminary findings dictated by LIGIA Awan RPA. Direct supervision and final interpretation by Dr. Colin. The patient was given barium to swallow. There are no mucosal abnormalities, masses, or strictures seen in the esophagus. The esophageal motility is within normal limits. Small sliding-type hiatal hernia. There are no mucosal abnormalities or masses seen in the stomach. The duodenal bulb is within normal limits. The remainder of the duodenum and visualized proximal jejunum are unremarkable. There was no gastroesophageal reflux seen during intermittent fluoroscopy. Impression: Small sliding-type hiatal hernia. Study otherwise unremarkable. Narrative Procedure Note Don Colin MD - 12/30/2018 IMPRESSION: Please see below. Exam: XR UPR GI Date/Time of Exam: 12/30/2018 10:44 AM Reason For Exam: See Diagnosis. Diagnosis: Hiatal hernia with GERD; Hiatal hernia with GERD. Preliminary findings dictated by LIGIA Awan RPA. Direct supervision and final interpretation by Dr. Colin. The patient was given barium to swallow. There are no mucosal abnormalities, masses, or strictures seen in the esophagus. The esophageal motility is within normal limits. Small sliding-type hiatal hernia. There are no mucosal abnormalities or masses seen in the stomach. The duodenal bulb is within normal limits. The remainder of the duodenum and visualized proximal jejunum are unremarkable. There was no gastroesophageal reflux seen during intermittent fluoroscopy. Impression: Small sliding-type hiatal hernia. Study otherwise unremarkable. Matheus Dinh DO DIAGNOSTIC IMAGING ORDERAB LES Final Result documented in this encounter Visit Diagnoses Diagnosis Hiatal hernia with GERD Hiatal hernia with GERD documented in this encounter Care Teams Senior Quality Assurance Specialist Relationship Specialty Start Date End Date Art Roman DO PCP - General Family Practice 10/15/18 documented as of this encounter
--- OUTSIDE RECORDS SUMMARY | 2025-04-11 19:40 | XMS_ITS | Patient Health Record ---
Author Organization [facility] Address [address] [place] [address] Care Team Providers Care Buyer Liaison Name Role Phone Migration, Provider Primary Care Provider Unavai lable Allergies Allergen (clinical drug ingredient) Drug/Non Drug Allergy documented on EMR Reaction Allergy Type Onset Date Status doxycycline Doxycycline , Drug Allergy Act lottie Reason For Referral No Information Medications Medication SIG (Take, Route, Frequency, Duration) Notes Start Date End Date Status Citalopram 40 MG Oral Tablet Citalopram 40 MG Oral Tablet 12/29/2015 0 Active Estrogens, Conjugated (MCC) 0.625 MG Oral Tablet Estrogens, Conjugated (MCC) 0.625 MG Oral Tablet 12/29/2015 0 Active Levothyroxine Sodium 0.137 MG Oral Tablet Levothyroxine Sodium 0.137 MG Oral Tablet 12/29/2015 0 Active Metoclopramide 5 MG Oral Tablet Metoclopramide 5 MG Oral Tablet 01/05/2016 0 Active Simvastatin 10 MG Oral Tablet Simvastatin 10 MG Oral Tablet 08/03/2016 0 Active sitagliptin 50 MG Oral Tablet sitagliptin 50 MG Oral Tablet 08/03/2016 0 Active Aspirin 81 MG Enteric Coated Tablet Aspirin 81 MG Enteric Coated Tablet 08/03/2016 0 Active pantoprazole 40 MG Enteric Coated Tablet pantoprazole 40 MG Enteric Coated Tablet 05/01/2017 0 Active Meclizine Hydrochloride 25 MG Oral Tablet Meclizine Hydrochloride 25 MG Oral Tablet 12/29/2015 0 Active 24 HR Glipizide 10 MG Extended Release Tablet 24 HR Glipizide 10 MG Extended Release Tablet 08/03/2016 0 Active mesalamine 1200 MG Enteric Coated Tablet mesalamine 1200 MG Enteric Coated Tablet 07/12/2016 0 Active dexlansoprazole 60 MG Enteric Coated Capsule dexlansoprazole 60 MG Enteric Coated Capsule 12/29/2015 0 Active Social History Social History Additional Details Category Social Info Options Details zzMigrated Social History Migrated Social History Smoking Status:Never smoked tobacco (finding) Plan Of Treatment No Information
--- OUTSIDE RECORDS SUMMARY | 2025-04-11 19:40 | XMS_ITS | Clinical Summary ---
Author Organization [facility] Address [address] [place] [address] Phone Care Team Providers Care Content Management Specialist Name Role Phone Art Roman DO Primary Care Provider [phone] Allergies Active Allergy Reactions Criticality Noted Date Comments Diphenhydramine Hcl Anxiety,Other (See Comments) Low 05/21/2018 Sleepy, anxious, goofy Nickel Other (See Comments) 09/19/2018 irritation to skin Medications DULoxetine (CYMBALTA) 30 mg Capsule, Delayed Release(E.C.) Take 30 mg by mouth daily. Active aspirin (ECOTRIN EC) 81 mg Tablet, Delayed Release (E.C.) Take 81 mg by mouth daily. Active estradiol (ESTRACE) 0.5 mg tablet Take 0.5 mg by mouth daily. Active dicyclomine (BENTYL) 10 mg capsule Take 10 mg by mouth 4 times daily. Active levothyroxine (EUTHYROX) 125 mcg tablet Take 125 mcg by mouth daily lean manufacturing specialist. Active flash glucose sensor (FreeStyle Adwoa 14 Day Sensor) Kit Place one sensor on clean dry arm every 14 days. 6 Kit 3 0 Active insulin lispro (HumaLOG) 100 unit/mL pen syringe INJECT 4 UNITS SUB-Q THREE TIMES DAILY PLUS SLIDING SCALE (MAX DAILY DOSE 60 UNITS) 30 mL 2 0 Active pantoprazole (PROTONIX) 40 mg Tablet, Delayed Release (E.C.)Indications: Gastroesophageal reflux disease with hiatal hernia Take 1 tablet by mouth twice daily 60 Tablet 5 0 Active predniSONE (DELTASONE) 10 mg tabletIndications: Ulcerative pancolitis with rectal bleeding (CMS/HCC) 40 mg daily by mouth for 7 days then 30 mg daily for 7 days then 20 mg daily for 7 days then 10 mg daily for 7 days 100 Tablet 1 Active mesalamine (APRISO) 0.375 gram Extended Release 24 hour capsuleIndications :Ulcerative pancolitis with rectal bleeding (CMS/HCC),Rectal pain Take 4 Capsules (1.5 Grams) by mouth daily. 120 Capsule 1 1 Active Tradjenta 5 mg TabletIndications: Uncontrolled type 2 diabetes mellitus with hyperglycemia (CMS/HCC) Take 1 tablet by mouth once daily 30 Tablet 1 1 Active Active Problems Problem Noted Date Diagnosed Date Uncontrolled type 2 diabetes mellitus with hyper glycemia 05/21/2018 Obesity (BMI 30.0-34.9) 05/21/2018 Hyperlipidemia LDL goal <100 05/21/2018 Hypothyroidism (acquired) 05/21/2018 History of hyperthyroidism 05/21/2018 Family History Medical History Relation Name Comments Healthy Daughter Cancer Father Hypertension Mother Colon Cancer Paternal Cousin Healthy Sister 1 COPD Sister 2 Cancer Sister 2 Emphysema Sister 2 Heart Disease Sister 2 Healthy Son Relation Name Status Comments Daughter Alive Father Mother Alive Paternal Cousin Sister 1 Alive Sister 2 Alive Son Alive Social History Tobacco Use Types Packs/Day Years Used Date Smoking Tobacco: Never Smokeless Tobacco: Never Alcohol Use Standard Drinks/Week Comments No 0 (1 standard drink = 0.6 oz pur e alcohol) Comments No Sex and Gender Information Value Date Recorded Sex Assigned at Not on file Legal Sex Female 9:52 AM CDT Gender Identity Not on file Sexual Orientation Not on file Last Filed Vital Signs Vital Sign Reading Time Taken Comments Blood Pressure 122/80 06/28/2020 9:45 AM OUTSOLE LEVELER Pulse 60 06/28/2020 9:45 AM OUTSOLE LEVELER Temperature 36.6 C (97.9 F) 06/18/2018 8:38 AM OUTSOLE LEVELER Respiratory Rate 18 10/28/2018 10:34 AM CDT Oxygen Saturation 100% 11/11/2018 10:44 AM CDT Inhaled Oxygen Concentration - - Weight 83.5 kg (184 lb) 06/28/2020 9:45 AM OUTSOLE LEVELER Height 162.6 cm (5' 4 ) 06/28/2020 9:45 AM OUTSOLE LEVELER Body Mass Index 31.58 06/28/2020 9:45 AM OUTSOLE LEVELER Plan of Treatment Health Maintenance Due Date Last Done Comments DIABETES ANNUAL RETINAL EXAM 1978 DTAP/TDAP/TD VACCINES (1 - Tdap) 1979 HPV/Cotest (21-29) 1981 CERVICAL CANCER SCREENING 1990 HPV/Cotest (30-65) 1990 PAP SMEAR 1990 BREAST CANCER SCREENING 2000 FIT-DNA Q 3 years 2005 FIT/FOBT Q 1 year 2005 Flex Sig/CT Colonography Q 5 years 2005 ZOSTER VACCINE (1 of 2) 2010 DIABETES ANNUAL FOOT EXAM 05/21/2019 05/21/2018 RSV VACCINE (60+ or ) (1 - Risk 60-74 years 1-dose series) 2020 DIABETES HBA1C Q 6 MONTHS 01/03/20212019, 04/05/2020, 12/01/2019, Additional history exists DIABETES MICROALBUMIN ANNUAL SCREEN 04/05/2021 04/05/2020, 07/30/2019, 08/07/2018 COLORECTAL SCREENING 06/18/2021 06/18/2018, 06/18/2018, 06/07/2018, Additional history exists Colorectal Cancer Screening 06/18/2021 LDL CHOLESTEROL ANNUAL 07/05/2021 0, 03/04/2019, 08/07/2018, Additional history exists INFLUENZA VACCINE (#1) 2025 Procedures Procedure Name Priority Date/Time Associated Diagnosis Comments LIPID PANEL Routine 07/05/2020 MICROALBUMIN/CREATIN INE RATIO, RANDOM UR Routine 04/05/2020 HEMOGLOBIN A1C Routine 04/05/2020 COLONOSCOPY REPORT 06/18/2018 9: 45 AM OUTSOLE LEVELER from Last 3 Months or Most Recently Relevant to Health Maintenance Results * LIPID PANEL (07/05/2020) ABSTRACTED CHOLESTEROL 153 ABSTRACTED TRIGLYCERIDE 64 ABSTRACTED HDL 60 ABSTRACTED LDL CALCULATED 79 CHOLESTEROL TRIGLYCERIDE HDL LDL CALCULATED Blood 07/05/2020 us [facility] [place] Provider CHEMISTRY ORDERABLES Final Result * MICROALBUMIN/CREATININE RATIO, RANDOM UR (04/05/2020) ABSTRACTED MICROALBUMIN,URI NE 1.0 EXTERNAL LAB MICROALBUMIN, URINE EXTERNAL LAB CREATININE, URINE EXTERNAL LAB MICROALBUMIN/CRE AT RATIO, UR EXTERNAL LAB MICROALBUMIN, URINE EXTERNAL LAB CREATININE, URINE EXTERNAL LAB MICROALBUMIN/CRE AT RATIO, UR EXTERNAL LAB Urine URINE SPECIMEN OBTAINED BY CLEAN CATCH PROCEDURE / Unknown 04/05/2020 us [facility] [place] Provider URINE ORDERABLES Edited Re sult - Final Performing Organization Address City/[facility]/ZIP Co de Phone Number EXTERNAL LAB * HEMOGLOBIN A1C (04/05/2020) ABSTRACTED HGB A1C 9.5 EXTERNAL LAB HEMOGLOBIN A1C EXTERNAL LAB HEMOGLOBIN A1C EXTERNAL LAB GLUCOSE, MEAN BLOOD EXTERNAL LAB Blood 04/05/2020 us [facility] [place] Provider CHEMISTRY ORDERABLES Edite d Result - Final EXTERNAL LAB * COLONOSCOPY REPORT (06/18/2018 9:45 AM OUTSOLE LEVELER) Narrative Procedure Note Gunnar Carr MD - 06/18/2018 9:43 AM CST [facility] GI Patient Name: Lilo Chong Procedure Date: 06/18/2018 Date of : 1960 Admit Type: Outpatient Age: 57 Attending MD: Gunnar Carr , Procedure: Colonoscopy Indications: Colorectal cancer screening. Providers: Gunnar Carr, Michelle Hatch RN Referring MD: Art Roman, DO Medicines: Midazolam 5 mg IV, Fentanyl 100 micrograms IV Complications: No immediate complications. Procedure: Pre-Anesthesia Assessment: - The risks and benefits of the procedure and the sedation options and risks were discussed with the patient. All questions were answered and informed consent was obtained. - ASA Grade Assessment: II - A patient with mild systemic disease. After I obtained informed consent, the scope was passed under direct vision. Throughout the procedure, the patient's blood pressure, pulse, and oxygen saturations were monitored continuously. The Colonoscope was introduced through the anus and advanced to 3 cm into the ileum. The colonoscopy was performed without difficulty. The patient tolerated the procedure well. The quality of the bowel preparation was adequate. Estimated Blood Loss: Estimated blood loss: none. Findings: The perianal and digital rectal examinations were normal. Staining chromoscopy with methylene blue was performed in the entire colon. The entire examined colon appeared normal on direct and retroflexion views. The terminal ileum appeared normal. Impression: - The entire examined colon is normal on direct and retroflexion views. - The examined portion of the ileum was normal. - Chromoscopy was performed in the entire colon. - No specimens collected. Recommendation: - Repeat colonoscopy in 3 years for surveillance. Gunnar Carr, 06/18/2018 9:43:35 AM Number of Addenda: 0 Note Initiated On: 06/18/2018 9:12 AM Scope Withdrawal Time 0 hours 10 minutes 38 seconds Scope In: 9:22:18 AM Scope Out: 9:38:00 AM [address] [place], [place] Gunnar Carr MD GI PROCEDURE ORDERABLES Final Result from Last 3 Months or Most Recently Relevant to Health Maintenance Insurance [employer] PLUS Advance Directives For more information, please contact: [phone] * Full Code (Latest Code Status on File) Date Activated Date Inactivated Comments 06/18/2018 8:25 AM 06/18/2018 12:11 PM * Full Code Date Activated Date Inactivated Comments 06/07/2018 10:22 AM 06/08/2018 2:02 AM Care Teams Content Management Specialist Relationship Specialty Start Date End Date Art Roman DO PCP - General Family Practice 10/15/18
--- OUTSIDE RECORDS SUMMARY | 2025-04-11 19:40 | XMS_ITS | Clinical Summary ---
Author Organization [facility] [place] Address [address] [place] [address] Phone Care Team Providers Care Carpenter Assistant Name Role Phone Art Roman DO Primary Care Provider [phone] Allergies Active Allergy Reactions Criticality Noted Date Comments Diphenhydramine Hcl Anxiety,Other (See Comments) Low 05/21/2018 Sleepy, anxious, goofy Nickel Other (See Comments) 09/19/2018 irritation to skin Medications DULoxetine (CYMBALTA) 30 mg Capsule, Delayed Release(E.C.) Take 30 mg by mouth daily. 8 Active aspirin (ECOTRIN EC) 81 mg Tablet, Delayed Release (E.C.) Take 81 mg by mouth daily. 8 Active estradioL (ESTRACE) 0.5 mg tablet Take 0.5 mg by mouth daily. 9 Active dicyclomine (BENTYL) 10 mg capsule Take 10 mg by mouth 4 times daily. 0 Active insulin lispro (HumaLOG) 100 unit/mL pen syringe INJECT 4 UNITS SUB-Q THREE TIMES DAILY PLUS SLIDING SCALE (MAX DAILY DOSE 60 UNITS) 30 mL 2 0 Active levothyroxine 125 mcg tablet Take 125 mcg by mouth daily kitchen steward/stewardess. 0 Active pantoprazole (PROTONIX) 40 mg Tablet, [...] mg daily for 7 days 100 Tablet 0 1 Active linaGLIPtin (Tradjenta) 5 mg TabletIndications: Uncontrolled type 2 diabetes mellitus with hyperglycemia (CMS/HCC) Take 1 tablet by mouth once daily 30 Tablet 1 1 Active FreeStyle Adwoa [address] Kit [address] 1 SENSOR ON CLEAN DRY ARM EVERY 14 DAYS 2 Kit 6 1 Active mesalamine (APRISO) 0.375 gram Extended Release 24 hour capsuleIndications :Ulcerative pancolitis with rectal bleeding (CMS/HCC),Rectal pain Take 4 Capsules (1.5 Grams) by mouth daily. 120 Capsule 1 2 Active Active Problems Problem Noted Date Diagnosed Date Uncontrolled type 2 diabetes mellitus with hyper glycemia 05/21/2018 Obesity (BMI 30.0-34.9) 05/21/2018 Hyperlipidemia LDL goal <100 05/21/2018 Hypothyroidism (acquired) 05/21/2018 History of hyperthyroidism 05/21/2018 Family History Medical History Relation Name Comments Healthy Daughter Cancer Father Hypertension Mother Colon Cancer Paternal Cousin COPD Sister 1 Cancer Sister 1 Emphysema Sister 1 Heart Disease Sister 1 Healthy Sister 2 Healthy Son Relation Name Status Comments Daughter Alive Father Mother Alive Paternal Cousin Sister 1 Alive Sister 2 Alive Son Alive Social History Tobacco Use Types Packs/Day Years Used Date Smoking Tobacco: Never Smokeless Tobacco: Never Alcohol Use Standard Drinks/Week Comments No 0 (1 standard drink = 0.6 oz pur e alcohol) Comments Unknown Sex and Gender Information Value Date Recorded Sex Assigned at Not on file Legal Sex Female 1:28 PM HYDROPRESS OPERATOR Gender Identity Not on file Sexual Orientation Not on file Last Filed Vital Signs Vital Sign Reading Time Taken Comments Blood Pressure 123/50 05/13/2021 2:50 PM CDT Pulse 60 06/28/2020 9:45 AM HYDROPRESS OPERATOR Temperature 36.8 C (98.3 F) 05/13/2021 12:23 PM CDT Respiratory Rate 14 05/13/2021 2:50 PM CDT Oxygen Saturation 97% 05/13/2021 2:50 PM CDT Inhaled Oxygen Concentration - - Weight 83.5 kg (184 lb) 05/13/2021 12:23 PM CDT Height 162.6 cm (5' 4 ) 05/13/2021 12:23 PM CDT Body Mass Index 31.58 05/13/2021 12:23 PM CDT Plan of Treatment Health Maintenance Due Date [...] 07/30/2019, 08/07/2018 COLORECTAL SCREENING 06/18/2021 06/18/2018, 06/18/2018, 06/18/2018, Additional history exists Colorectal Cancer Screening 06/18/2021 LDL CHOLESTEROL ANNUAL 07/05/2021 0, 03/04/2019, 08/07/2018, Additional history exists INFLUENZA VACCINE (#1) 2025 Procedures Procedure Name Priority Date/Time Associated Diagnosis Comments LIPID PANEL Routine 07/05/2020 HEMOGLOBIN A1C Routine 07/05/2020 MICROALBUMIN/CREATIN INE RATIO, RANDOM UR Routine 04/05/2020 COLONOSCOPY REPORT Routine 06/18/2018 9: 43 AM HYDROPRESS OPERATOR from Last 3 Months or Most Recently Relevant to Health Maintenance Results * HEMOGLOBIN A1C (07/05/2020) ABSTRACTED HGB A1C 10.2 [facility] HEMOGLOBIN A1C ^ [facility] HEM[facility]GLOBIN A1C [facility] GLUCOSE, MEAN BLOOD [facility] Blood 07/05/2020 Narrative [facility] - 07/05/2020 12:00 AM HYDROPRESS OPERATOR This order was created through External Result Entry us Abstract Sp Provider CHEMISTRY ORDERABLES Final Result Performing Organization Address [facility] [[email or web address]] Co de Phone Number [facility] * LIPID PANEL (07/05/2020) ABSTRACTED CHOLESTEROL 153 [facility] ABSTRACTED TRIGLYCERIDE 64 [facility] ABSTRACTED HDL 60 [facility] ABSTRACTED LDL CALCULATED 79 [facility] CHOLESTEROL ^ [facility] TRIGLYCERIDE ^ [facility] HDL ^ [facility] LDL CALCULATED ^ [facility] Blood 07/05/2020 Narrative [facility] - 07/05/2020 12:00 AM HYDROPRESS OPERATOR This order was created through External Result Entry us Abstract [facility] Provider CHEMISTRY ORDERABLES Final Result Performing Organization Address [facility] [[email or web address]] Co de Phone Number [facility] * MICROALBUMIN/CREATININE RATIO, RANDOM UR (04/05/2020) ABSTRACTED MICROALBUMIN,URI NE 1.0 EXTERNAL LAB MICROALBUMIN, URINE EXTERNAL LAB CREATININE, URINE EXTERNAL LAB MICROALBUMIN/CRE AT RATIO, UR EXTERNAL LAB MICROALBUMIN, URINE ^ EXTERNAL LAB CREATININE, URINE ^ EXTERNAL LAB MICROALBUMIN/CRE AT RATIO, UR ^ EXTERNAL LAB Urine URINE SPECIMEN OBTAINED BY CLEAN CATCH PROCEDURE / Unknown 04/05/2020 Narrative EXTERNAL LAB - 04/05/2020 12:00 AM CDT This order was created through External Result Entry us Abstract [facility] Provider URINE ORDERABLES Edited Re sult - Final Performing Organization Address City/[facility]/ZIP Co de Phone Number EXTERNAL LAB * COLONOSCOPY REPORT (06/18/2018 9:43 AM HYDROPRESS OPERATOR) 06/18/2018 9:43 AM HYDROPRESS OPERATOR us Gunnar Carr MD GI PROCEDURE ORDERABLES Final Result [facility] from Last 3 Months or Most Recently Relevant to Health Maintenance Insurance [facility] OPTIONS PPO [id number] Care Teams Carpenter Assistant Relationship Specialty Start Date End Date Art Roman DO PCP - General Family Practice 10/15/18
[2025-04-11 19:52] VITALS: BP 135/73; PULSE 86; O2SAT 96
--- NOTE | 2025-04-11 20:30 | XRR_ITS ---
PROCEDURE INFORMATION: Exam: XR Right Hand Exam date and time: 04/11/2025 8:30 PM Age: 64 years old Clinical indication: Injury or trauma; Right; Linear laceration to posterior side of RT hand inbetween 3rd and 4th metacarpals. TECHNIQUE: Imaging protocol: Radiologic exam of the right hand. Views: 3 or more views. COMPARISON: No relevant prior studies available. FINDINGS: Bones/joints: Normal. Soft tissues: Normal. XR/XR hand RT min 3V* [id number] IMPRESSION: No acute findings. Laceration not clearly visualized, but no subcutaneous gas or radiopaque foreign body.
--- NOTE | 2025-04-11 20:33 | ED_ITS ---
HPI - Wound/Laceration 2 General: Chief Complaint: Wound/Laceration Stated Complaint: lac on right hand Time Seen by Provider: 04/11/25 19:53 History of Present Illness: Patient is 64-year-old patient, DM, presents to the emergency room due to laceration to the right dorsum of her hand. She was throwing a potted plant over the fence, it was desk, she did not see the top of the stephenie fence, and sliced the top of her hand open. This occurred just prior to arrival. Associated symptoms: Denies chills, fever(s), nausea or vomiting Related Data Home Medications ?Medication ?Instructions ?Recorded ?Confirmed L.acidophil-L.casei-B.bifid-B.longum-FOS 1 cap PO SUMIT Y 04/19/22 04/09/25 2 billion cell-50 mg capsule (Probiotic Blend) metoprolol succinate 25 mg 25 mg PO DAILY 09/03/24 tablet,extended release 24 hr acetaminophen 500 mg capsule 1,000 mg PO Q12H osteoart hritis 11/12/24 04/09/25 Previous Rx's ?Medication ?Instructions ?Recorded pen needle, diabetic, safety 30 #100 ea 04/22/22 gauge x 3/16 (Assure ID Pen Needle) 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 sensor (FreeStyle #6 ea 07/02/24 Adwoa 3 Plus Sensor device) 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,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,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 #1 ea 07/02/24 (FreeStyle Adwoa 3 Aurora) diclofenac sodium 1 % topical gel 4 g topical QID #100 grams 08/11/24 (Voltaren Arthritis Pain) nitroglycerin 0.4 mg sublingual 0.4 mg sublingual Q5M PRN chest 09/03/24 tablet pain #20 tabs levothyroxine 100 mcg tablet See Rx Instructions .Rout e 10/31/24 .COMPLEX #90 tabs diclofenac sodium 75 mg 75 mg PO Q12H PRN moderate t o 11/12/24 tablet,delayed release severe pain as needed #30 ta bs pen needle, diabetic 32 gauge x #100 ea 12/04/24 metformin 500 mg tablet,extended 500 mg PO BID 1 month #60 tabs 01/01/25 release 24 hr (Glucophage XR) Lantus Solostar U-100 Insulin 100 See Rx Instructions .Route 01/14/25 unit/mL (3 mL) subcutaneous pen .COMPLEX #45 mL (insulin glargine) atorvastatin 20 mg tablet See Rx Instructions .Route 0 01/26/25 .COMPLEX #90 tabs linagliptin 5 mg tablet (Tradjenta) See Rx Instruction s .Route 03/24/25 .COMPLEX #90 tabs paroxetine HCl 40 mg tablet See Rx Instructions .Route 03/24/25 .COMPLEX #90 tabs Humalog KwikPen Insulin 100 See Rx Instructions .Route 04/02/25 unit/mL subcutaneous (insulin .COMPLEX #15 mL lispro) folic acid 1 mg tablet 1 mg PO DAILY #90 tabs 04/02 levofloxacin 750 mg tablet 750 mg PO DAILY #7 tabs 06/16 methotrexate sodium 2.5 mg tablet See Rx Instructions PO .Q7days #90 04/02/25 tabs dulaglutide 0.75 mg/0.5 mL 0.75 mg (0.5 mL) SUBCUT QDA Y #2 mL 04/09/25 subcutaneous pen injector (TrulicGlokalise) flash glucose scanning reader #1 ea 04/09/25 (Generate Adwoa 14 Day Aurora) cephalexin 500 mg capsule 500 mg PO BID 3 days #6 caps 04/11/25 Allergies Allergy/AdvReac Type Severity Reaction Status Date / Time No Known Allergies Allergy Verified 04/11/25 19:41 Review of Systems 2 General: Reports: 10 or more systems reviewed and unremarkable except in HPI and below Const: Denies: fever(s) or chills Eyes: Denies: change in vision or blurry vision ENMT: Denies: throat pain or mouth pain Card: Denies: chest pain or palpitations Resp: Denies: dyspnea or productive cough GI: Denies: abdominal pain, nausea or vomiting : Denies: flank pain or difficulty voiding Musc: Reports: extremity pain, extremity swelling, joint pain and joint swelling Neuro: Denies: headache(s), numbness in extremities, weakness in extremities, sensory changes, lack of coordination or difficulty walking Psych: Denies: anxiety or depression PFSH ED 2 PFSH: Medical History (Updated 04/11/25 @ 21:50 by SVETLANA Lyman) Immunization counseling High risk medication use Polyarthralgia GERD (gastroesophageal reflux disease) Orthostatic hypotension Diabetes type 2, uncontrolled Ulcerative colitis Graves disease Surgical History History of partial hysterectomy History of tubal ligation Family History Mother Atrial fibrillation Hypertension Family/Other Myocardial infarct Diabetes Father CAD (coronary artery disease) with stents Other Cancer Social History Smoking and tobacco/nicotine status: unknown if used tobacco/nicotine Second hand smoke exposure: No Substance/Drug Use: never Physical Exam 2 Const: COMMON NORMALS: no acute distress, average body habitus and patient oriented x3 HENMT: COMMON NORMALS: normocephalic and atraumatic HEAD & SCALP: n ormocephalic and atraumatic Eye: COMMON NORMALS: Equal, round and reactive pupils present and EOMs intact bilaterally PUPIL: Yes Equal, round and reactive pupils present Neck/C-Spine: COMMON NORMALS: full ROM and no lymphadenopathy Lymph: LYMPHATIC: no lymphadenopathy noted Resp: COMMON NORMALS: normal respiratory effort, No retractions and clear to auscultation bilaterally AUSCULTATION: clear to auscultation bilaterally Cardio: COMMON NORMALS: regular rate and regular rhythm RATE: regular rate RHYTHM: regular rhythm GI: COMMON NORMALS: Normal to inspection, nondistended, normoactive bowel sounds present, Soft to palpation and non-tender PALPATION: Yes Soft to palpation : COMMON NORMALS: Yes no CVA tenderness BLADDER/KIDNEY EXAM: Yes no CVA tenderness Back/Pelvis: COMMON NORMALS: no CVA tenderness Extremity: COMMON NORMALS: normal to inspection, full ROM and capillary refill normal Neuro: COMMON NORMALS: patient oriented x3 Psych: COMMON NORMALS: mental status grossly normal, Normal thought process present and cooperative THOUGHT PROCESS: Normal thought process present Skin: NARRATIVE SKIN EXAM: laceration SKIN IMAGES (FEMALE): 1. Laceration Procedures Laceration Laceration 1: Site: upper extremity and hand Side (If applicable): right Size (cm): 5 Description: linear Depth: simple, single layer Local Anesthetic: lidocaine 1% and with epi Amount of anesthesia used (mL): 4 Pre-repair: wound explored, irrigated extensively and deep structures intact Skin layer closed with: nylon Size (cm): 4-0 Number of sutures: 4 Technique: simple, interrupted Course 2 Vital Signs: Vital signs: Vital Signs Temperature 97.4 F L 04/11/25 19:36 Pulse Rate 86 04/11/25 19:52 Respiratory Rate 14 04/11/25 19:36 Blood Pressure 135/73 04/11/25 19:52 Pulse Oximetry 96 04/11/25 19:52 Oxygen Delivery Me thod Room Air 04/11/25 19:52 MDM - Wound/Laceration Medical Decision Making Patient is a 64-year-old female that had a laceration to her right dorsum of her hand after throwing a pot over her fence, and scraping it on the fence row. This was a stephenie fence. She required sutures for repair. No other issues. X- ray was negative. Tetanus was given. Medical Records I reviewed the patient's medical records. Lab Data I reviewed the patient's lab results. Radiology Impressions Hand X-Ray 04/11/25 20:30 IMPRESSION: No acute findings. Laceration not clearly visualized, but no subcutaneous gas or radiopaque foreign body. All radiology interpretation(s) finalized by discharge Discharge Plan Discharge Patient Disposition: Home Clinical Impression: Laceration Condition: Stable Prescriptions: New cephalexin 500 mg capsule 500 mg PO BID 3 Days Qty: 6 0RF No Action (DME) FreeStyle Adwoa 3 Aurora Misc See Rx Instructions .Route Qty: 1 0RF Rx Instructions: As directed (DME) FreeStyle Adwoa 3 Plus Sensor Device See Rx Instructions .Route Qty: 6 1RF Rx Instructions: change sensor every 15 days metoprolol succinate 25 mg tablet extended release 24 hr 25 mg PO DAILY nitroglycerin 0.4 mg tablet, sublingual 0.4 mg sublingual Q5M PRN (Reason: chest pain) Qty: 20 3RF Rx Instructions: do not exceed 3 doses per episode metformin [Glucophage XR] 500 mg tablet extended release 24 hr 500 mg PO BID 30 Days Qty: 60 3RF acetaminophen 500 mg capsule 1,000 mg PO Q12H diclofenac sodium 75 mg tablet,delayed release (DR/EC) 75 mg PO Q12H PRN (Reason: moderate to severe pain as needed) Qty: 30 1RF diclofenac sodium [Voltaren Arthritis Pain] 1 % gel 4 g topical QID Qty: 100 0RF Rx Instructions: apply to single knee, ankle, foot; for foot includes sole/toes/top of foot levofloxacin 750 mg tablet 750 mg PO DAILY Qty: 7 0RF folic acid 1 mg tablet 1 mg PO DAILY Qty: 90 1RF methotrexate sodium 2.5 mg tablet See Rx Instructions PO .Q7days Qty: 90 1RF Rx Instructions: take 6 tabs on same day once a week PO .Q7days; Trulicity 0.75 mg/0.5 mL pen injector 0.75 mg SUBCUT QDAY Qty: 2 3RF (DME) FreeStyle Adwoa 14 Day [place] [facility] See Rx Instructions .Route Qty: 1 0RF Rx Instructions: As directed levothyroxine 100 mcg tablet See Rx Instructions .ROUTE .COMPLEX Qty: 90 0RF Dose Instruction: TAKE 1 TABLET BY MOUTH ONCE DAILY, TAKE 1 HOUR BEFORE BREAKFAST OR ANY OTHER MEDICATION Rx Instructions: TAKE 1 TABLET BY MOUTH ONCE DAILY, TAKE 1 HOUR BEFORE BREAKFAST OR ANY OTHER MEDICATION (DME) pen needle, diabetic 32 gauge x 5/32 needle See Rx Instructions .ROUTE .COMPLEX Qty: 100 0RF Dose Instruction: USE 1 PEN NEEDLE 4 TIMES DAILY Rx Instructions: USE 1 PEN NEEDLE 4 TIMES DAILY insulin glargine [Lantus Solostar U-100 Insulin] 100 unit/mL (3 mL) insulin pen See Rx Instructions .ROUTE .COMPLEX Qty: 45 1RF Dose Instruction: INJECT 25 UNITS SUBCUTANEOUSLY IN THE MORNING AND 25 IN THE EVENING Rx Instructions: INJECT 22 UNITS SUBCUTANEOUSLY IN THE MORNING AND 22 IN THE EVENING atorvastatin 20 mg tablet See Rx Instructions .ROUTE .COMPLEX Qty: 90 0RF Dose Instruction: Take 1 tablet by mouth once daily Rx Instructions: Take 1 tablet by mouth once daily Tradjenta 5 mg tablet See Rx Instructions .ROUTE .COMPLEX Qty: 90 0RF Dose Instruction: Take 1 tablet by mouth once daily Rx Instructions: Take 1 tablet by mouth once daily paroxetine HCl 40 mg tablet See Rx Instructions .ROUTE .COMPLEX Qty: 90 3RF Dose Instruction: Take 1 tablet by mouth once daily Rx Instructions: Take 1 tablet by mouth once daily insulin lispro [Humalog KwikPen Insulin] 100 unit/mL insulin pen See Rx Instructions .ROUTE .COMPLEX Qty: 15 0RF Dose Instruction: INJECT 20 UNITS SUBCUTANEOUSLY THREE TIMES DAILY Rx Instructions: INJECT 20 UNITS SUBCUTANEOUSLY THREE TIMES DAILY Probiotic Blend 2 billion cell-50 mg Capsule 1 cap PO DAILY Rx Instructions: give with meal/snack (DME) Assure ID Pen Needle 30 gauge x 3/16 needle See Rx Instructions .Route Qty: 100 0RF Rx Instructions: As directed Discharge Orders: Discharge ED (Routine); Ordered 04/11/25 Ordered By: Jasmin Monsivais Referrals: Jayme Joe MD [Primary Care Provider, [facility]] Discharge Activity: Resume usual activity Patient Instructions: Laceration (ED), Patient Portal & Andrzej Instructions Activity Restrictions/Additional Instructions: - Remove sutures in 10 days. You may follow-up here however it is a new visit, or your regular doctor Antibiotics were sent to your pharmacy. Take as directed. Avoid infectious diarrhea by utilizing probiotic or active culture yogurt --If you have increasing redness, drainage, fever greater than 100.4 ?F, return to ED -Wash this area at least daily. Remove the covering tomorrow. Use an antibacterial soap. You may utilize antibiotic ointment the first 24 hours, then utilize Vaseline or Vaseline gauze. This may be kept open after 48 hours, however you can cover at times after in the a.m. Print Language: Swazi Coding Level of Care Code ED Heater Operator Helper for Chika Nielson
[2025-04-11] MEDS: tetanus-dipt-pertussis 0.5 mL SDV IM (20:55)
[2025-04-11] MEDS: HYDROcodone-acetaminophen 5-325 mg Tablet 1 TAB PO (22:02)
== END 2025-04-11 22:12 | disposition home or self-care (01) ==
PROVIDERS: Emergency Provider Physician Assistant; PCP Family Medicine
DX: S61.411A Laceration without foreign body of right hand, initial encounter (principal); Z79.4 Long term (current) use of insulin; E11.9 Type 2 diabetes mellitus without complications; W26.8XXA Contact with other sharp object(s), not elsewhere classified, initial encounter
CPT/HCPCS: 12002; 73130; 90471; 90715; 99283; J9999

== ENCOUNTER → 2025-05-26 08:55 | Outpatient (BNVA) | payer OTHER, SELFPAY | PROVIDERS: PCP Family Medicine; Visit Provider Physician Assistant | DX: G56.03 Carpal tunnel syndrome, bilateral upper limbs (principal); M65.321 Trigger finger, right index finger; M65.341 Trigger finger, right ring finger | CPT/HCPCS: 73130 ==

== ENCOUNTER → 2025-06-06 17:54 | Outpatient (BNVA) | payer OTHER, SELFPAY | PROVIDERS: PCP Family Medicine; Visit Provider Emergency Medicine | DX: R30.0 Dysuria (principal) | CPT/HCPCS: 81000 ==

== ENCOUNTER 2025-07-02 11:48 | Outpatient (CLI) | payer OTHER, SELFPAY ==
[2025-07-02 13:21] LABS: Creatinine Urine, Random 21 mg/dL (28-217)
[2025-07-02 13:22] LABS: Microalbum Creatinine Ratio Ur 48 mg/dL (0-20)
[2025-07-02 13:27] LABS: Estmated Average Glucose 246; Hemoglobin A1C 10.2 % (4.0-6.0)
[2025-07-02 13:34] LABS: Alanine Aminotransferase 34 U/L (0-33); Albumin Level 4.4 g/dL (3.5-5.2); Alkaline Phosphatase 117 U/L (35-105); Anion Gap 15.2 (5-19); Aspartate Amino Transferase 29 U/L (0-32); Blood Urea Nitrogen 7 mg/dL (8-23); Calcium 9.3 mg/dL (8.5-10.5); Carbon Dioxide 27 mmol/L (22-29); Chloride 95 mmol/L (98-107); Cholesterol 161 mg/dL (0-200); Globulin 2.9 g/dL (1.3-4.6); Glucose 163 mg/dL (65-115); HDL Cholesterol 78 mg/dL (60-100); Osmolality Calculated 278 mOsm/kg (285-295); Potassium 4.2 mmol/L (3.5-5.1); Sodium 133 mmol/L (136-145); Thyroid Stimulating Hormone 2.93 uIU/mL (0.27-4.20); Total Protein 7.3 g/dL (6.6-8.7); Triglycerides 72 mg/dL (0-150)
[2025-07-02 16:16] LABS: Free T4 Free Thyroxine 1.17 ng/dL (0.82-1.77)
== END 2025-07-02 11:49 | disposition home or self-care (01) ==
LOC: LAB 11:48
PROVIDERS: PCP Family Medicine; Visit Provider Internal Medicine
DX: E03.9 Hypothyroidism, unspecified (principal); E11.65 Type 2 diabetes mellitus with hyperglycemia
CPT/HCPCS: 36415; 80053; 80061; 82044; 83036; 84439; 84443